=== PATIENT | male | born 1955 | race Caucasian/White ===

== ENCOUNTER 2017-05-26 06:53 | Emergency (ER) | payer OTHER ==
[2017-05-26] MEDS ORDERED: HYDROmorphone 0.5 MG/0.5 ML SYRINGE IVP STA (07:26)
[2017-05-26] MEDS ORDERED: METOCLOPRAMIDE 5 MG/ML 2 ML VIAL IVP STA (07:26)
[2017-05-26] MEDS ORDERED: SODIUM CHLORIDE 0.9% 1,000 ML IV STA (07:26)
[2017-05-26] MEDS ORDERED: hydrALAZINE HCL 20 MG/ML 1 ML VIAL IVP STA ×2 (07:28→09:31)
[2017-05-26 08:18] LABS: ALT 28 U/L (21-72); AST 13 U/L (17-59); Alkaline Phosphatase 105 U/L (38-126); Anion Gap 10 mmol/L; Blood Urea Nitrogen 15 mg/dL (9-20); Calcium 9.2 mg/dL (8.4-10.2); Carbon Dioxide 25 mmol/L (22-30); Chloride 99 mmol/L (98-107); Glucose 347 mg/dL (74-99); Non-African American GFR(MDRD) >60 (>60 ml/min/1.73 sqM); Potassium 4.3 mmol/L (3.5-5.1); Sodium 134 mmol/L (137-145); Total Bilirubin 0.5 mg/dL (0.2-1.3); Total Protein 6.5 g/dL (6.3-8.2)
[2017-05-26 08:21] LABS: Basophils # (A) 0.1 k/uL (0-0.2); Basophils % (A) 1 %; CH 31.6; CHCM 34.4; Eosinophils # (A) 0.2 k/uL (0-0.7); Eosinophils % (A) 3 %; HCT 49.4 % (39.0-53.0); HDW 2.75; HGB 16.7 gm/dL (13.0-17.5); Luc # (Auto) 0.08; Luc % (Auto) 1; Lymphocytes # (A) 1.8 k/uL (1.0-4.8); Lymphocytes % (A) 25 %; MCH 31.3 pg (25.0-35.0); MCHC 33.9 g/dL (31.0-37.0); MCV 92.4 fL (80.0-100.0); Mean Platelet Volume 7.7; Monocytes # (A) 0.5 k/uL (0-1.0); Monocytes % (A) 7 %; Neutrophils # (A) 4.6 k/uL (1.3-7.7); Neutrophils % (A) 63 %; RBC 5.35 m/uL (4.30-5.90); RDW 12.9 % (11.5-15.5); WBC 7.2 k/uL (3.8-10.6); WBC (Perox) 6.95
[2017-05-26 08:31] VITALS: RESP 18
--- NOTE | 2017-05-26 08:31 | CT ---
EXAMINATION TYPE: CT brain wo con DATE OF EXAM: 05/26/2017 COMPARISON: Previous study dated 05/28/2015. HISTORY: Lt sided head and facial pain CT DLP: 892.1 mGycm Automated exposure control for dose reduction was used. FINDINGS: There has been a previous left cerebellar infarct. There is evidence of an old lacunar infarct in the external capsule on the left. There are generalized changes of sulcal prominence and ventriculomegaly, compatible with atrophic jony nge. There is diffuse periventricular white matter lucency, compatible with small vessel ischemic jony nge. There is no acute focal lesion, mass effect or midline shift identified. I do not see evidence o f intracranial blood. There is chronic mucoperiosteal thickening involving the frontal sinuses and ethmoid sinuses. There i s underaeration of the right maxillary sinus. There is underaeration of the left mastoid air cells. IMPRESSION: 1. NO ACUTE INTRACRANIAL ABNORMALITY. 2. PREVIOUS INFARCT INVOLVING THE LEFT CEREBELLUM AND EXTERNAL CAPSULE ON THE LEFT. 3. ATROPHIC CHANGE. 4. CHRONIC WHITE MATTER ISCHEMIC CHANGE. 5. CHRONIC SINUS MUCOSAL DISEASE. 6. UNDERAERATION OF THE LEFT MASTOID AIR CELLS SUGGESTS CHRONIC LEFT-SIDED MASTOIDITIS.
--- NOTE | 2017-05-26 08:33 | XR ---
EXAMINATION TYPE: XR chest 2V DATE OF EXAM: 05/26/2017 HISTORY: Pain. REFERENCE: Previous study dated 11/02/2015. FINDINGS: The heart is enlarged. The lungs are clear. Pleural spaces are clear. Note is made of an az ygos lobe and fissure.. IMPRESSION: MILD CARDIOMEGALY.
[2017-05-26 09:20] LABS: Appearance,Urine Clear (Clear); Bilirubin,Urine Negative (Negative); Glucose,Urine (UA) 4+ (Negative); Ketones,Urine Trace (Negative); Leukocyte Esterase,Urine Negative (Negative); Nitrite,Urine Negative (Negative); Protein,Urine Negative (Negative); Specific Gravity,Urine 1.024 (1.001-1.035); UA Billing (MACRO vs. MICRO) CHEM; Urobilinogen,Urine <2.0 mg/dL (<2.0)
[2017-05-26] MEDS ORDERED: INSULIN REGULAR 100 UNIT/ML VIAL IV ONE (09:29)
[2017-05-26] MEDS ORDERED: INSULIN REGULAR 100 UNIT/ML VIAL SQ ONE (09:29)
--- NOTE | 2017-05-26 09:41 | ED ---
Headache HPI - General Chief Complaint: Headache Stated Complaint: Facial Pain Time Seen by Provider: 05/26/17 07:09 Mode of arrival: ambulatory Limitations: no limitations - History of Present Illness Initial Comments: 61 years old male, has had a colostomy days he has a history of CVA, his blood pressure is also hard he had he did take his blood pressure medication. He has a headache no chest pain no shortness of breath no symptoms of TIA or CVA today. He has a history of cancer and the been operated on his face on the left side but headache is no - Related Data Home Medications Medication Instructions Recorded Confirmed Lisinopril 40 mg PO DAILY 05/28/15 05/26/17 rOPINIRole HCL [Ropinirole HCl] 1 mg PO DAILY 05/31/15 05/26/17 ALPRAZolam [Xanax] 0.25 mg PO BID PRN 05/16/16 05/26/17 Carvedilol 25 mg PO BID 05/16/16 05/26/17 HYDROcodone/APAP 10-325MG [[place] 1 tab PO Q6H PRN 05/16/16 05/26/17 10-325] rOPINIRole HCL [Requip] 3 mg PO DAILY 05/16/16 05/26/17 Previous Rx's Medication Instructions Recorded hydrALAZINE HCL [Apresoline] 25 mg PO BID #60 tab 08/26/15 Clindamycin [Cleocin] 450 mg PO Q8H #30 capsule 05/18/16 INSULIN LISPRO (humaLOG) [humaLOG 6 unit SQ AC-TID #1 vial 05/18/16 (formulary)] Insulin Glargine [Lantus] 20 unit SQ HS #1 vial 05/18/16 Mupirocin 2% Oint [Bactroban 2% 1 applic TOPICAL TID applic 05/18/16 Oint] Tamsulosin [Flomax] 0.4 mg PO DAILY cap.er.24h 05/18/16 amLODIPine [Norvasc] 10 mg PO DAILY tab 05/18/16 metFORMIN HCL [Glucophage] 1,000 mg PO BID tab 05/18/16 Amoxicillin 500 mg PO Q8H #30 capsule 05/26/17 HYDROmorphone [Dilaudid] 1 mg PO Q4HR PRN #15 tab 05/26/17 Allergies Allergy/AdvReac Type Severity Reaction Status Date / Time tramadol Allergy Itching Verified 05/15/16 20:40 Review of Systems ROS Statement: Those systems with pertinent positive or pertinent negative responses have been documented in the HPI. ROS Other: All systems not noted in ROS Statement are negative. 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 History of Any Multi-Drug Resistant Organisms: None Reported Past Surgical History: Hernia Repair Additional Past Surgical History / Comment(s): mastoid repair on left ear Past Anesthesia/Blood Transfusion Reactions: No Reported Reaction Past Psychological History: Depression Smoking Status: Never smoker Past Alcohol Use History: None Reported Past Drug Use History: None Reported - Past Family History Father History Unknown: Yes Mother Family Medical History: Cancer, Myocardial Infarction ([place]) General Exam - General Exam Comments Initial Comments: General: The patient is awake and alert, in no distress, and does not appear acutely ill. Skin: Skin is warm and dry and no rashes or lesions are noted. Eye: Pupils are equal, round and reactive to light, extra-ocular movements are intact; there is normal conjunctiva bilaterally. Ears, nose, mouth and throat: Exam is consistent with sinusitis Neck: The neck is supple, there is no tenderness or JVD. Cardiovascular: There is a regular rate and rhythm. No murmur, rub or gallop is appreciated. Respiratory: To auscultation bilateral, no wheezing no rhonchi no distress respiratory trevino noticed Gastrointestinal: Soft, non-distended, non-tender abdomen without masses or organomegaly noted. There is no rebound or guarding present. Bowel sounds are unremarkable. Back: There is no tenderness to palpation in the midline. There is no obvious deformity. Musculoskeletal: Normal ROM, no tenderness, There is no pedal edema. There is no calf tenderness or swelling. No cords were appreciated. Neurological: CN II-XII intact, Cranial nerves III through XII are intact. There are no obvious motor or sensory deficits. Coordination appears grossly intact. Speech is normal. Psychiatric: Cooperative, appropriate mood & affect, normal judgment. He is quite anxious Limitations: no limitations Course Vital Signs 05/26/17 05/26/17 05/26/17 06:55 08:06 08:30 Temperature 96.9 F L Pulse Rate 97 75 Respiratory 20 18 Rate Blood Pressure 181/127 200/125 169/75 O2 Sat by Pulse 96 98 Oximetry 05/26/17 10:40 Temperature Pulse Rate 66 Respiratory 18 Rate Blood Pressure 145/80 O2 Sat by Pulse 96 Oximetry - Reevaluation(s) Reevaluation #1: 05/26/17 11:14 Blood sugar is 243 at 11 AM and he wants to go home she be gone home on amoxicillin 500 mg 3 times a day for 10 days and hydromorphone 1 mg every 6 when necessary #15 and he will follow up with his family doctor. He is also advised to keep his sugar #follow-up with his family doctor Medical Decision Making - Lab Data Result diagrams: 05/26/17 08:00 05/26/17 08:00 Lab Results 05/26/17 05/26/17 05/26/17 Range/Units 08:00 08:00 09:08 WBC 7.2 (3.8-10.6) k/uL RBC 5.35 (4.30-5.90) m/uL Hgb 16.7 (13.0-17.5) gm/dL Hct 49.4 (39.0-53.0) % MCV 92.4 (80.0-100.0) fL MCH 31.3 (25.0-35.0) pg MCHC 33.9 (31.0-37.0) g/dL RDW 12.9 (11.5-15.5) % Plt Count 188 (150-450) k/uL Neutrophils % 63 % Lymphocytes % 25 % Monocytes % 7 % Eosinophils % 3 % Basophils % 1 % Neutrophils # 4.6 (1.3-7.7) k/uL Lymphocytes # 1.8 (1.0-4.8) k/uL Monocytes # 0.5 (0-1.0) k/uL Eosinophils # 0.2 (0-0.7) k/uL Basophils # 0.1 (0-0.2) k/uL Sodium 134 L (137-145) mmol/L Potassium 4.3 (3.5-5.1) mmol/L Chloride 99 (98-107) mmol/L Carbon Dioxide 25 (22-30) mmol/L Anion Gap 10 mmol/L BUN 15 (9-20) mg/dL Creatinine 0.90 (0.66-1.25) mg/dL Est GFR (MDRD) Af Amer >60 (>60 ml/min/1.73 sqM) Est GFR (MDRD) Non-Af >60 (>60 ml/min/1.73 sqM) Glucose 347 H (74-99) mg/dL POC Glucose (mg/dL) (75-99) mg/dL POC Glu Bioinformatics Research Technician ID Calcium 9.2 (8.4-10.2) mg/dL Total Bilirubin 0.5 (0.2-1.3) mg/dL AST 13 L (17-59) U/L ALT 28 (21-72) U/L Alkaline Phosphatase 105 (38-126) U/L Total Protein 6.5 (6.3-8.2) g/dL Albumin 3.7 (3.5-5.0) g/dL Urine Color Yellow Urine Appearance Clear (Clear) Urine pH 6.0 (5.0-8.0) Ur Specific [place] 1.024 (1.001-1.035) Urine Protein Negative (Negative) Urine Glucose (UA) 4+ H (Negative) Urine Ketones Trace H (Negative) Urine Blood Negative (Negative) Urine Nitrite Negative (Negative) Urine Bilirubin Negative (Negative) Urine Urobilinogen <2.0 (<2.0) mg/dL Ur Leukocyte Esterase Negative (Negative) 05/26/17 Range/Units 10:30 WBC (3.8-10.6) k/uL RBC (4.30-5.90) m/uL Hgb (13.0-17.5) gm/dL Hct (39.0-53.0) % MCV (80.0-100.0) fL MCH (25.0-35.0) pg MCHC (31.0-37.0) g/dL RDW (11.5-15.5) % Plt Count (150-450) k/uL Neutrophils % % Lymphocytes % % Monocytes % % Eosinophils % % Basophils % % Neutrophils # (1.3-7.7) k/uL Lymphocytes # (1.0-4.8) k/uL Monocytes # (0-1.0) k/uL Eosinophils # (0-0.7) k/uL Basophils # (0-0.2) k/uL Sodium (137-145) mmol/L Potassium (3.5-5.1) mmol/L Chloride (98-107) mmol/L Carbon Dioxide (22-30) mmol/L Anion Gap mmol/L BUN (9-20) mg/dL Creatinine (0.66-1.25) mg/dL Est GFR (MDRD) Af Amer (>60 ml/min/1.73 sqM) Est GFR (MDRD) Non-Af (>60 ml/min/1.73 sqM) Glucose (74-99) mg/dL POC Glucose (mg/dL) 298 H (75-99) mg/dL POC Glu Bioinformatics Research Technician ID Anila Ashford Calcium (8.4-10.2) mg/dL Total Bilirubin (0.2-1.3) mg/dL AST (17-59) U/L ALT (21-72) U/L Alkaline Phosphatase (38-126) U/L Total Protein (6.3-8.2) g/dL Albumin (3.5-5.0) g/dL Urine Color Urine Appearance (Clear) Urine pH (5.0-8.0) Ur Specific [place] (1.001-1.035) Urine Protein (Negative) Urine Glucose (UA) (Negative) Urine Ketones (Negative) Urine Blood (Negative) Urine Nitrite (Negative) Urine Bilirubin (Negative) Urine Urobilinogen (<2.0) mg/dL Ur Leukocyte Esterase (Negative) Critical Care Time Total Critical Care Time: 30 Critical Care Time: His blood pressure was quite high was 181/27, this could be because of his headache he was giving some hydromorphone a.m. same time noticed some hydralazinepurposes no better reassessed him at 05/27/1930 systolic blood pressure was 158 0.2 units of insulin his sugar sugar sorry is greater than 352 week he started ketoacidosis his CO2 is normal. Given some IV as well as subcu insulin to normalize his sugar head CT is normal though does confirm chronic mastoiditis and sinusitis. Given some antibiotics for possible is advised to keep an eye on his blood pressure follow with his family doctor in next few days given some antibiotics considering his ALLERGIES for his chronic sinusitis and chronic mastoiditis Disposition Clinical Impression: Headache, Hypertension, Sinusitis, Hyperglycemia Disposition: HOME SELF-CARE Condition: Good Instructions: Acute Headache (ED) Prescriptions: Amoxicillin 500 mg PO Q8H #30 capsule HYDROmorphone [Dilaudid] 1 mg PO Q4HR PRN #15 tab PRN Reason: Headache Referrals: Salomon Paz DO [Primary Care Provider] - 1-2 days
[2017-05-26 10:35] LABS: Glucose,Whole Blood 298 mg/dL (75-99)
[2017-05-26 10:41] VITALS: BP 145/80; PULSE 66
[2017-05-26 11:17] LABS: Glucose,Whole Blood 246 mg/dL (75-99)
[2017-05-26 11:24] VITALS: TEMP 97.8
== END 2017-05-26 11:22 | disposition home or self-care (01) ==
LOC: EC 06:53
DX: E11.65 Type 2 diabetes mellitus with hyperglycemia (principal); I10 Essential (primary) hypertension; J32.9 Chronic sinusitis, unspecified; Z86.73 Personal history of transient ischemic attack (TIA), and cerebral infarction without residual deficits; Z85.828 Personal history of other malignant neoplasm of skin; Z79.899 Other long term (current) drug therapy; Z88.6 Allergy status to analgesic agent
CPT/HCPCS: 99285 ×2; 96374 ×2; 96375 ×3; 96361 ×5; 36415; 80053; 85025; 81003; 71020; 70450; J0360; J2765; J1170

== ENCOUNTER → 2017-08-08 | Outpatient (CLI) | payer MEDICARE, OTHER ==
--- NOTE | 2017-08-08 13:07 | MR ---
EXAMINATION TYPE: MR lumbar spine wo con DATE OF EXAM: 08/08/2017 COMPARISON: NONE HISTORY: Low back pain TECHNIQUE: T1 and T2 axial and sagittal images of the lumbar spine are submitted. FINDINGS: There is no abnormal signal seen within the visualized spinal cord or paraspinal soft tissu es. Simple renal cyst noted At L1-2 there is no disc herniation or canal stenosis. No foraminal encroachment. At L2-3 there is hypertrophic change of the facets but no disc herniation or canal stenosis. No guerline inal encroachment. At L3-4 there is hypertrophic change of the facets. No disc herniation or canal stenosis. Neural fora joycelyn are patent mild circumferential disc bulging. At L4-5 there is moderate facet arthropathy. There is circumferential disc bulging and mild degenerat erich disc disease with mild bilateral foraminal encroachment. At L5-S1 there is degenerative disc disease with vacuum disc and facet arthropathy. No disc herniatio n or canal stenosis. There is mild bilateral foraminal encroachment on the left and moderate to sever e encroachment on the right. There is a unilateral pars defect on the right of L5. IMPRESSION: 1. L5-S1 there is moderate to severe right-sided and mild left-sided foraminal encroachment due to hy pertrophic facet arthropathy and degenerative disc disease. Unilateral right spondylolysis L5. 2. Circumferential disc bulging L4-L5 with mild degenerative disc disease and mild bilateral foramina l encroachment.
== END | disposition home or self-care (01) ==
LOC: RADMRIMAIN 12:15
PROVIDERS: ATTEND Psychiatry & Neurology Neurology
DX: M51.26 Other intervertebral disc displacement, lumbar region (principal); M43.06 Spondylolysis, lumbar region; M51.37 Other intervertebral disc degeneration, lumbosacral region; M46.97 Unspecified inflammatory spondylopathy, lumbosacral region
CPT/HCPCS: 72148

== ENCOUNTER 2017-09-26 18:13 | Emergency (ER) | payer MEDICARE, OTHER ==
[2017-09-26 18:47] VITALS: RESP 18; TEMP 97
[2017-09-26] MEDS ORDERED: HYDROcodone/APAP 5-325MG 1 EACH TAB PO STA ×2 (18:49→19:22)
--- NOTE | 2017-09-26 18:59 | ED ---
Lower Extremity Injury HPI - General Chief Complaint: Extremity Injury, Lower Stated Complaint: LEFT ANKLE INJURY Time Seen by Provider: 09/26/17 18:31 Source: patient, family, RN notes reviewed Mode of arrival: wheelchair Limitations: physical limitation - History of Present Illness Initial Comments: This is a 62-year-old male who presents to the emergency department with chief complaint of left ankle injury. Patient states that approximately 4 hours ago he was standing and his left ankle gave out. He states that he is able to bear weight and ambulate but with some difficulty. He states that he was not going to come to the emergency department by his pain is unbearable. He states that it is currently 10/10 and throbbing in nature. He states that he does take [place] for pain but did not take any prior to arrival. He did not take any other medications. Patient denies foot pain or knee pain. He denies any other injury or trauma. Denies fever, chills, chest pain, shortness of breath, abdominal pain, nausea or vomiting, numbness or tingling, headache or vision changes. - Related Data Home Medications Medication Instructions Recorded Confirmed Lisinopril 40 mg PO DAILY 05/28/15 06/06/17 rOPINIRole HCL [Ropinirole HCl] 1 mg PO DAILY 05/31/15 06/06/17 ALPRAZolam [Xanax] 0.25 mg PO BID PRN 05/16/16 06/06/17 Carvedilol 25 mg PO BID 05/16/16 06/06/17 HYDROcodone/APAP 10-325MG [[place] 1 tab PO Q6H PRN 05/16/16 06/06/17 10-325] rOPINIRole HCL [Requip] 3 mg PO DAILY 05/16/16 06/06/17 INSULIN LISPRO (humaLOG) [humaLOG] 7 unit SQ AC-TID 06/06/17 06/06/17 Insulin Glargine [Lantus] 60 unit SQ HS 06/06/17 06/06/17 Previous Rx's Medication Instructions Recorded hydrALAZINE HCL [Apresoline] 25 mg PO BID #60 tab 08/26/15 Clindamycin [Cleocin] 450 mg PO Q8H #30 capsule 05/18/16 Mupirocin 2% Oint [Bactroban 2% 1 applic TOPICAL TID applic 05/18/16 Oint] Tamsulosin [Flomax] 0.4 mg PO DAILY cap.er.24h 05/18/16 amLODIPine [Norvasc] 10 mg PO DAILY tab 05/18/16 metFORMIN HCL [Glucophage] 1,000 mg PO BID tab 05/18/16 HYDROmorphone [Dilaudid] 1 mg PO Q4HR PRN #15 tab 05/26/17 Ibuprofen 600 mg PO Q6HR #20 tablet 09/26/17 Allergies Allergy/AdvReac Type Severity Reaction Status Date / Time tramadol Allergy Itching Verified 09/26/17 18:47 Review of Systems ROS Statement: Those systems with pertinent positive or pertinent negative responses have been documented in the HPI. ROS Other: All systems not noted in ROS Statement are negative. 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 History of Any Multi-Drug Resistant Organisms: None Reported Past Surgical History: Hernia Repair Additional Past Surgical History / Comment(s): mastoid repair on left ear Past Anesthesia/Blood Transfusion Reactions: No Reported Reaction Past Psychological History: Depression Smoking Status: Never smoker Past Alcohol Use History: None Reported Past Drug Use History: None Reported - Past Family History Father History Unknown: Yes Mother Family Medical History: Cancer, Myocardial Infarction ([place]) General Exam - General Exam Comments Initial Comments: General: Awake and alert, well-developed; in no apparent distress. HEENT: Head atraumatic, normocephalic. Pupils are equal, round and reactive to light. Extraocular movements intact. Oropharynx moist without erythema or exudate. Neck: Supple. Normal ROM. Cardiovascular: Regular rate and rhythm. No murmurs, rubs or gallops. Chest symmetrical. Respiratory: Lungs clear to auscultation bilaterally. No wheezes, rales or rhonchi. Normal respiratory effort with no use of accessory muscles. Musculoskeletal: Normal range of motion of the left ankle. Pain is elicited with inversion of the left foot. There is localized soft tissue swelling and ecchymosis at lateral malleolus. No bony point tenderness. Sensation is intact. Pedal pulses are 2+ equal and palpable bilaterally. Skin: [place], warm and dry without rashes or lesions. Psychiatric: Normal mood and affect. No overt signs of depression or anxiety noted. Limitations: physical limitation Course Vital Signs 09/26/17 09/26/17 09/26/17 18:44 19:21 20:18 Temperature 97 F L Pulse Rate 85 90 87 Respiratory 18 18 18 Rate Blood Pressure 183/128 221/137 212/121 O2 Sat by Pulse 96 98 98 Oximetry 09/26/17 21:39 Temperature Pulse Rate 73 Respiratory 18 Rate Blood Pressure 168/106 O2 Sat by Pulse 98 Oximetry Procedures - Orthopedic Splinting/Casting Injury #1 Side: left Lower Extremity Injury Location: ankle Lower Extremity Immobilizer: AirCast, Raoul wrap Additional Comments: Tolerated well. Neurovascularly intact. Medical Decision Making - Medical Decision Making This is a 62-year-old male who presents to the emergency department with chief complaint of left ankle injury. X-ray of left ankle revealed no acute fractures or dislocations. Patient likely suffering from a sprain. While in the emergency department, patient's initial blood pressure was 183/128. Patient was given pain medication. On recheck, blood pressure is 221/137. Patient given Coreg and Norvasc, his usual home medications and an additional [place]. An Raoul bandage and Aircast were placed and patient tolerated well without complication. He is neurovascularly intact and in no acute distress. On recheck after given medication, patient has a BP of 212/121. Basic labs were drawn to check kidney function. Patient had a glucose of 457. He states that he has missed 2 doses of his NovoLog today. States he is asymptomatic. Given 7 units subq while in the emergency department. Patient's blood pressure is now stabilized and he will be discharged home. He is in no acute distress. He requests a shoe to go over his Aircast. Recommended rest, ice and elevation while at home. He'll be given a prescription for ibuprofen. - Lab Data Result diagrams: 09/26/17 20:55 09/26/17 20:55 Lab Results 09/26/17 09/26/17 Range/Units 20:55 20:55 WBC 10.1 (3.8-10.6) k/uL RBC 6.08 H (4.30-5.90) m/uL Hgb 18.3 H (13.0-17.5) gm/dL Hct 56.7 H (39.0-53.0) % MCV 93.2 (80.0-100.0) fL MCH 30.1 (25.0-35.0) pg MCHC 32.2 (31.0-37.0) g/dL RDW 12.5 (11.5-15.5) % Plt Count 192 (150-450) k/uL Neutrophils % 78 % Lymphocytes % 13 % Monocytes % 5 % Eosinophils % 2 % Basophils % 1 % Neutrophils # 7.9 H (1.3-7.7) k/uL Lymphocytes # 1.3 (1.0-4.8) k/uL Monocytes # 0.5 (0-1.0) k/uL Eosinophils # 0.2 (0-0.7) k/uL Basophils # 0.1 (0-0.2) k/uL Sodium 136 L (137-145) mmol/L Potassium 4.6 (3.5-5.1) mmol/L Chloride 98 (98-107) mmol/L Carbon Dioxide 23 (22-30) mmol/L Anion Gap 15 mmol/L BUN 21 H (9-20) mg/dL Creatinine 1.11 (0.66-1.25) mg/dL Est GFR (MDRD) Af Amer >60 (>60 ml/min/1.73 sqM) Est GFR (MDRD) Non-Af >60 (>60 ml/min/1.73 sqM) Glucose 457 H* (74-99) mg/dL Calcium 9.6 (8.4-10.2) mg/dL Total Bilirubin 0.6 (0.2-1.3) mg/dL AST 18 (17-59) U/L ALT 18 L (21-72) U/L Alkaline Phosphatase 112 (38-126) U/L Total Protein 7.0 (6.3-8.2) g/dL Albumin 4.0 (3.5-5.0) g/dL - Radiology Data Radiology results: report reviewed Left ankle x-ray Impression: There is no acute fracture or dislocation of the left ankle. Mild to moderate lateral soft tissue swelling noted. Disposition Clinical Impression: Ankle sprain and strain Disposition: HOME SELF-CARE Condition: Good Instructions: Ankle Sprain (ED) Additional Instructions: Please take medications as prescribed. Please rest, ice and elevate. Please follow up with primary care provider within 1-2 days. Return to emergency department if symptoms should worsen or any concerns arise. Prescriptions: Ibuprofen 600 mg PO Q6HR #20 tablet Referrals: Salomon Paz DO [Primary Care Provider] - 1-2 days Time of Disposition: 21:50
--- NOTE | 2017-09-26 19:13 | XR ---
EXAMINATION TYPE: XR ankle complete LT DATE OF EXAM: 09/26/2017 CLINICAL HISTORY: Left ankle pain and swelling after fall injury today TECHNIQUE: Frontal, lateral and oblique images of the left ankle are obtained. COMPARISON: Left ankle x-ray October 04, 2014 FINDINGS: There is new mild to moderate soft tissue swelling over lateral malleolus. Demineralization is present. There is no acute fracture/dislocation evident in the left ankle. The ankle mortise roseline ears within normal limits. Vascular calcification anteriorly is noted. There are small superior and m oderate size inferior calcaneal spurs noted. IMPRESSION: There is no acute fracture or dislocation in the left ankle. [id number] lateral so ft tissue swelling noted.
[2017-09-26] MEDS ORDERED: CARVEDILOL 12.5 MG TAB PO STA (19:22)
[2017-09-26] MEDS ORDERED: amLODIPine 10 MG TAB PO STA (19:22)
[2017-09-26 20:59] LABS: Basophils # (A) 0.1 k/uL (0-0.2); Basophils % (A) 1 %; Eosinophils # (A) 0.2 k/uL (0-0.7); Eosinophils % (A) 2 %; HGB 18.3 gm/dL (13.0-17.5); Lymphocytes # (A) 1.3 k/uL (1.0-4.8); Lymphocytes % (A) 13 %; MCH 30.1 pg (25.0-35.0); MCHC 32.2 g/dL (31.0-37.0); MCV 93.2 fL (80.0-100.0); Mean Platelet Volume 7.9; Monocytes # (A) 0.5 k/uL (0-1.0); Monocytes % (A) 5 %; Neutrophils # (A) 7.9 k/uL (1.3-7.7); Neutrophils % (A) 78 %; Platelet Count 192 k/uL (150-450); RBC 6.08 m/uL (4.30-5.90); RDW 12.5 % (11.5-15.5); WBC 10.1 k/uL (3.8-10.6)
[2017-09-26 21:02] LABS: HCT 56.7 % (39.0-53.0)
[2017-09-26 21:12] LABS: ALT 18 U/L (21-72); AST 18 U/L (17-59); Alkaline Phosphatase 112 U/L (38-126); Anion Gap 15 mmol/L; Blood Urea Nitrogen 21 mg/dL (9-20); Calcium 9.6 mg/dL (8.4-10.2); Carbon Dioxide 23 mmol/L (22-30); Chloride 98 mmol/L (98-107); Potassium 4.6 mmol/L (3.5-5.1); Sodium 136 mmol/L (137-145); Total Bilirubin 0.6 mg/dL (0.2-1.3)
[2017-09-26 21:16] LABS: Glucose 457 mg/dL (74-99)
[2017-09-26] MEDS ORDERED: SODIUM CHLORIDE 0.9% 1,000 ML IV STA (21:27)
[2017-09-26] MEDS ORDERED: INSULIN ASPART 100 UNIT/ML 1 ML 10 ML VIAL SQ ONE (21:28)
[2017-09-26 21:41] VITALS: BP 168/106; PULSE 73
[2017-09-26] MEDS ORDERED: KETOROLAC 30 MG/ML 1 ML VIAL IVP STA (21:41)
== END 2017-09-26 22:32 | disposition home or self-care (01) ==
LOC: EC 18:13
DX: S96.912A Strain of unspecified muscle and tendon at ankle and foot level, left foot, initial encounter (principal); S93.402A Sprain of unspecified ligament of left ankle, initial encounter; E11.9 Type 2 diabetes mellitus without complications; I10 Essential (primary) hypertension; Z85.9 Personal history of malignant neoplasm, unspecified; Z86.73 Personal history of transient ischemic attack (TIA), and cerebral infarction without residual deficits; Z79.4 Long term (current) use of insulin; Z79.899 Other long term (current) drug therapy; Z88.6 Allergy status to analgesic agent; X50.1XXA Overexertion from prolonged static or awkward postures, initial encounter; Y92.89 Other specified places as the place of occurrence of the external cause
CPT/HCPCS: 36415; 80053; 85025; 73610; 99284; 29515; 96374; 96361; L4350; J1885

== ENCOUNTER 2017-11-18 17:07 | Emergency (ER) | payer MEDICARE, OTHER ==
[2017-11-18 17:43] VITALS: RESP 18
--- NOTE | 2017-11-18 18:26 | ED ---
General Adult HPI - General Chief complaint: Eye Problems Stated complaint: Eye infection Time Seen by Provider: 11/18/17 18:15 Source: patient Mode of arrival: ambulatory Limitations: no limitations - History of Present Illness Initial comments: Gray Burger is a 62-year-old male with a past medical history significant for a CVA approximately 4 years ago, patient reports that at the time of the stroke he had an NG tube placed in the left naris, he subsequently developed nonhealing wound which spread throughout his face. Patient reports that he has been evaluated multiple times over the past 4 years for this nonhealing wound. He reports that for some time the wound on his face healed, however he had persistent non-healing wound in his left nares. 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 Patient reports that approximately 3 weeks ago he noticed an opening wound on his scalp as well as on his left eyebrow, he was evaluated by a general magistrate at which time biopsies were taken of the wound on his head as well as his left eyebrow. He was not given any antibiotics or treatment at that time. He reports that he was notified that the biopsies were negative for any cancerous cells although they could not identify the cause of his recurrent opening wounds. Patient does admit that he frequently picks at his wounds. Patient reports that since getting the biopsy he has noticed some progressively worsening swelling of his left eyebrow which has caused swelling of his eyelid which is now affecting his vision. Patient does have scarring of the skin from his left eyebrow onto his left nose which causes his eyelid to not be able to open completely at baseline however he feels worse recently. Patient denies any additional new complaints. Patient denies any fevers, chills. He reports that if he holds his eyelid open he has normal vision. He has no pain with extraocular movements. - Related Data Home Medications Medication Instructions Recorded Confirmed Lisinopril 40 mg PO DAILY 05/28/15 11/18/17 rOPINIRole HCL [Ropinirole HCl] 1 mg PO DAILY 05/31/15 11/18/17 Carvedilol 25 mg PO BID 05/16/16 11/18/17 HYDROcodone/APAP 10-325MG [[place] 1 tab PO Q6H PRN 05/16/16 11/18/17 10-325] rOPINIRole HCL [Requip] 3 mg PO DAILY 05/16/16 11/18/17 INSULIN LISPRO (humaLOG) [humaLOG] 7 unit SQ AC-TID 06/06/17 11/18/17 Insulin Glargine [Lantus] 70 unit SQ HS 06/06/17 11/18/17 Gabapentin [Neurontin] 300 mg PO TID 11/18/17 11/18/17 Previous Rx's Medication Instructions Recorded hydrALAZINE HCL [Apresoline] 25 mg PO BID #60 tab 08/26/15 amLODIPine [Norvasc] 10 mg PO DAILY tab 05/18/16 Cephalexin [Keflex] 500 mg PO Q8HR 7 Days #21 cap 11/18/17 Allergies Allergy/AdvReac Type Severity Reaction Status Date / Time tramadol Allergy Itching Verified 11/18/17 18:33 Review of Systems ROS Statement: Those systems with pertinent positive or pertinent negative responses have been documented in the HPI. ROS Other: All systems not noted in ROS Statement are negative. Constitutional: Denies: fever, chills Eyes: Reports: as per HPI, other (swelling of left eyelid). Denies: eye pain, eye discharge ENT: Denies: ear pain, throat pain Respiratory: Denies: cough Cardiovascular: Denies: chest pain, palpitations Endocrine: Denies: fatigue Gastrointestinal: Denies: abdominal pain, nausea, vomiting Genitourinary: Denies: urgency Musculoskeletal: Denies: back pain Skin: Reports: lesions Neurological: Reports: headache (chronic, unchanged from previous stroke) Hematological/Lymphatic: Denies: easy bleeding 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 History of Any Multi-Drug Resistant Organisms: None Reported Past Surgical History: Hernia Repair Additional Past Surgical History / Comment(s): mastoid repair on left ear Past Anesthesia/Blood Transfusion Reactions: No Reported Reaction Past Psychological History: Depression Smoking Status: Never smoker Past Alcohol Use History: None Reported Past Drug Use History: None Reported - Past Family History Father History Unknown: Yes Mother Family Medical History: Cancer, Myocardial Infarction ([place]) General Exam Limitations: no limitations General appearance: alert Expanded 1 - Open wound left eyebrow, minimal surrounding erythema. Surgical removal of left nares, chronic wound and scarring on face. Open wound on midline scalp 2 - Open wound on scalp Eye exam: Present: periorbital swelling (swelling of left eyelid, no tenderness to palpation ) ENT exam: Present: other (surgical changes of left nares, chronic wound of left nares) Respiratory exam: Absent: respiratory distress Cardiovascular Exam: Present: regular rate, normal rhythm GI/Abdominal exam: Present: soft. 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 Has been evaluated by dermatology , reports a negative biopsy and has not been given any antibiotics for this recurrence of the wound. Physical exam with chronic wounds on the scalp as well as left eyebrow, there is mild edema of the left eyelid as well as chronic scarring of the medial side of the eyelid near the canthus which limits the patient's ability to fully open his eye. Labs and CT imaging were ordered Labs with no significant abnormalities aside from hyperglycemia CT with chronic changes but no acute evidence of cellulitis or abscess Results were discussed with the patient who expresses frustration that he has been dealing with this for 4 years with no resolution. Patient reports that he usually has improvement in his wounds when he is given antibiotics. I offered the patient Bactrim considering that this is a patient wound seeming to originate from his naris, however patient declines this because he states it has never helped him in the past. Will discharge home with by mouth Keflex. Patient has multiple follow-up appointments scheduled including the management dermatology and primary care. Patient will be referred to infectious disease and wound care for further follow-up. At this time I do not feel there is no emergent condition. Patient has no evidence of orbital cellulitis, he has full extraocular movements with no pain. He has no vision changes. Patient was able to show me photographs of previous episodes of this wound which appears similar to current episode. - Lab Data Result diagrams: 11/18/17 18:42 11/18/17 18:42 Lab Results 11/18/17 11/18/17 Range/Units 18:42 18:42 WBC 9.9 (3.8-10.6) k/uL RBC 5.28 (4.30-5.90) m/uL Hgb 16.0 (13.0-17.5) gm/dL Hct 46.2 (39.0-53.0) % MCV 87.5 D (80.0-100.0) fL MCH 30.3 (25.0-35.0) pg MCHC 34.7 (31.0-37.0) g/dL RDW 13.0 (11.5-15.5) % Plt Count 224 (150-450) k/uL Neutrophils % 69 % Lymphocytes % 19 % Monocytes % 5 % Eosinophils % 4 % Basophils % 1 % Neutrophils # 6.9 (1.3-7.7) k/uL Lymphocytes # 1.9 (1.0-4.8) k/uL Monocytes # 0.5 (0-1.0) k/uL Eosinophils # 0.4 (0-0.7) k/uL Basophils # 0.1 (0-0.2) k/uL Sodium 137 (137-145) mmol/L Potassium 4.4 (3.5-5.1) mmol/L Chloride 101 (98-107) mmol/L Carbon Dioxide 26 (22-30) mmol/L Anion Gap 10 mmol/L BUN 15 (9-20) mg/dL Creatinine 1.00 (0.66-1.25) mg/dL Est GFR (CKD-EPI)AfAm >90 (>60 ml/min/1.73 sqM) Est GFR (CKD-EPI)NonAf 80 (>60 ml/min/1.73 sqM) Glucose 232 H (74-99) mg/dL Calcium 9.1 (8.4-10.2) mg/dL Disposition Clinical Impression: Chronic wound of head Disposition: HOME SELF-CARE Condition: Good Instructions: Cellulitis (ED) Prescriptions: Cephalexin [Keflex] 500 mg PO Q8HR 7 Days #21 cap Referrals: Salomon Paz DO [Primary Care Provider] - 1-2 days Maxim Brady MD [STAFF PHYSICIAN] - 1-2 days Time of Disposition: 20:47
[2017-11-18] MEDS ORDERED: RX INFO: IV CONTRAST WAS GIVEN 1 EACH MISC MISCELLANE PRN (18:29)
[2017-11-18 18:51] LABS: Basophils # (A) 0.1 k/uL (0-0.2); Basophils % (A) 1 %; Eosinophils # (A) 0.4 k/uL (0-0.7); Eosinophils % (A) 4 %; HCT 46.2 % (39.0-53.0); Lymphocytes # (A) 1.9 k/uL (1.0-4.8); Lymphocytes % (A) 19 %; MCH 30.3 pg (25.0-35.0); MCHC 34.7 g/dL (31.0-37.0); Mean Platelet Volume 7.6; Monocytes # (A) 0.5 k/uL (0-1.0); Monocytes % (A) 5 %; Neutrophils # (A) 6.9 k/uL (1.3-7.7); Neutrophils % (A) 69 %; Platelet Count 224 k/uL (150-450); RBC 5.28 m/uL (4.30-5.90); WBC 9.9 k/uL (3.8-10.6)
[2017-11-18 18:55] LABS: MCV 87.5 fL (80.0-100.0)
[2017-11-18 19:00] LABS: Anion Gap 10 mmol/L; Blood Urea Nitrogen 15 mg/dL (9-20); Calcium 9.1 mg/dL (8.4-10.2); Carbon Dioxide 26 mmol/L (22-30); Chloride 101 mmol/L (98-107); Glucose 232 mg/dL (74-99); Potassium 4.4 mmol/L (3.5-5.1); Sodium 137 mmol/L (137-145)
--- NOTE | 2017-11-18 19:51 | CT ---
EXAMINATION TYPE: CT orbits w con DATE OF EXAM: 11/18/2017 COMPARISON: NONE HISTORY: Left eye pain and swelling. CT DLP: 373.5 mGycm Automated exposure control for dose reduction was used. CONTRAST: Performed with IV Contrast, patient injected with 100ml mL of Isovue 300. FINDINGS: There is no evidence of retro-orbital mass. There is soft tissue swelling medial to the left orbit. T here is preseptal soft tissue swelling anterior to the left lobe. The globes are symmetric. There is mild mucosal thickening in the ethmoid sinuses. The orbital margins are intact. There is mucosal thic kening in the frontal sinuses. There is mild mucosal thickening in the maxillary sinuses. There is so me deformity of the right maxilla with bone thickening on the zygoma and the lateral wall of the righ t maxillary sinus. I see no pathologic enhancement. IMPRESSION: MODERATE SINUSITIS INVOLVING MAINLY THE FRONTAL AND ETHMOID SINUSES. THICKENED RIGHT ZYGOMA THAT COUL D RELATE TO DYSPLASIA. PRESEPTAL SOFT TISSUE SWELLING AROUND THE LEFT ORBIT. NO ABSCESS SEEN. NO RETRO-ORBITAL MASS. 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 THE LEFT PERIORBITAL SOFT TISSUE DENSITY IS PRESENT TO A LE SSER EXTENT ON THE OLD CT SCAN OF 05/26/2017.
[2017-11-18] MEDS ORDERED: HYDROcodone/APAP 10-325MG 1 EACH TAB PO ONE (20:45)
[2017-11-18 20:56] VITALS: BP 118/87; PULSE 87; TEMP 97.4
== END 2017-11-18 20:55 | disposition home or self-care (01) ==
LOC: SUPCPDRO 17:07 → EC 17:07
DX: S01.102A Unspecified open wound of left eyelid and periocular area, initial encounter (principal); S01.00XA Unspecified open wound of scalp, initial encounter; E11.9 Type 2 diabetes mellitus without complications; I10 Essential (primary) hypertension; Z86.73 Personal history of transient ischemic attack (TIA), and cerebral infarction without residual deficits; Z85.9 Personal history of malignant neoplasm, unspecified; Z79.02 Long term (current) use of antithrombotics/antiplatelets; Z79.4 Long term (current) use of insulin; Z79.899 Other long term (current) drug therapy; Z88.6 Allergy status to analgesic agent; Z97.8 Presence of other specified devices
CPT/HCPCS: 36415; 80048; 85025; 87040; 70481; 99284; Q9967

== ENCOUNTER 2019-01-09 20:57 | Emergency (ER) | payer MEDICARE, OTHER ==
[2019-01-09 22:03] LABS: Basophils # (A) 0.1 k/uL (0-0.2); Basophils % (A) 1 %; Eosinophils # (A) 0.4 k/uL (0-0.7); Eosinophils % (A) 5 %; HCT 49.2 % (39.0-53.0); HGB 16.6 gm/dL (13.0-17.5); Lymphocytes # (A) 2.2 k/uL (1.0-4.8); Lymphocytes % (A) 26 %; MCHC 33.8 g/dL (31.0-37.0); MCV 85.8 fL (80.0-100.0); Mean Platelet Volume 7.7; Monocytes # (A) 0.4 k/uL (0-1.0); Monocytes % (A) 5 %; Neutrophils # (A) 5.2 k/uL (1.3-7.7); Neutrophils % (A) 62 %; Platelet Count 236 k/uL (150-450); RBC 5.73 m/uL (4.30-5.90); RDW 13.3 % (11.5-15.5); WBC 8.5 k/uL (3.8-10.6)
[2019-01-09 22:08] LABS: ALT 16 U/L (21-72); AST 26 U/L (17-59); African American GFR (CKD) >90 (>60 ml/min/1.73 sqM); Albumin 3.9 g/dL (3.5-5.0); Alkaline Phosphatase 147 U/L (38-126); Anion Gap 6 mmol/L; Blood Urea Nitrogen 16 mg/dL (9-20); Calcium 9.2 mg/dL (8.4-10.2); Carbon Dioxide 27 mmol/L (22-30); Chloride 100 mmol/L (98-107); Glucose 350 mg/dL (74-99); Sodium 133 mmol/L (137-145); Total Protein 6.8 g/dL (6.3-8.2)
[2019-01-09 22:10] LABS: Magnesium 1.9 mg/dL (1.6-2.3); Potassium 4.7 mmol/L (3.5-5.1)
[2019-01-09 22:15] LABS: Appearance,Urine Clear (Clear); Bilirubin,Urine Negative (Negative); Blood,Urine Negative (Negative); Color,Urine Yellow; Glucose,Urine (UA) 4+ (Negative); Ketones,Urine 1+ (Negative); Leukocyte Esterase,Urine Negative (Negative); Nitrite,Urine Negative (Negative); Protein,Urine Negative (Negative); Specific Gravity,Urine 1.027 (1.001-1.035); Urobilinogen,Urine <2.0 mg/dL (<2.0)
[2019-01-09] MEDS ORDERED: SODIUM CHLORIDE 0.9% 2,000 ML IV ONE (22:34)
[2019-01-09] MEDS ORDERED: INSULIN REGULAR 100 UNIT/ML VIAL IV STA (22:34)
[2019-01-09] MEDS ORDERED: HYDROcodone/APAP 5-325MG 1 EACH TAB PO STA (23:00)
[2019-01-09] MEDS ORDERED: ONDANSETRON 4 MG/2 ML VIAL IVP STA (23:32)
--- NOTE | 2019-01-10 00:17 | ED ---
Fall HPI - General Chief Complaint: Fall Stated Complaint: fall,hypertension Time Seen by Provider: 01/09/19 21:01 Source: EMS Mode of arrival: EMS - History of Present Illness Initial Comments: Patient is a 63-year-old man who presents to be evaluated after he had a ground-level fall. The patient states that he had been feeling a little dizzy with getting up. Patient was concerned because he has not had his hypoglycemics in quite some time and was feeling dizzy and concerned about blood sugars. Denies significant injury as result of the fall. No loss consciousness. No head trauma. MD Complaint: fall -: hour(s) Fall From: standing Place Fall Occurred: home Loss of Consciousness: none Prolonged Down Time?: no Symptoms Prior to Fall: dizziness Context: tripped/slipped Associated Symptoms: denies - Related Data Previous Rx's Medication Instructions Recorded Aspirin 162 mg PO DAILY #1 chewable 01/15/19 Atorvastatin [Lipitor] 40 mg PO DAILY tab 01/15/19 Cyclobenzaprine [Flexeril] 5 mg PO TID PRN tab 01/15/19 INSULIN ASPART (NovoLOG) [NovoLOG 7 unit SQ AC-TID vial 01/15/19 (formulary)] Insulin Detemir (Levemir) [Levemir] 25 unit SQ HS syr 01/15/19 Lidocaine 5% Patch [Lidoderm 5% 1 patch TOPICAL DAILY patch 01/15/19 Patch] Lisinopril [Zestril] 40 mg PO HS tab 01/15/19 NIFEdipine XL [Procardia XL] 60 mg PO DAILY tab.er.24 01/15/19 metFORMIN HCL [Glucophage] 500 mg PO BID #1 tab 01/15/19 Allergies Allergy/AdvReac Type Severity Reaction Status Date / Time tramadol Allergy Itching Verified 01/10/19 08:01 Review of Systems ROS Statement: Those systems with pertinent positive or pertinent negative responses have been documented in the HPI. ROS Other: All systems not noted in ROS Statement are negative. Constitutional: Denies: fever, chills, weakness Eyes: Denies: vision change Respiratory: Denies: cough, dyspnea Cardiovascular: Denies: chest pain, palpitations, syncope Gastrointestinal: Denies: abdominal pain, vomiting, diarrhea Genitourinary: Denies: dysuria, hematuria Musculoskeletal: Denies: back pain Skin: Denies: rash Neurological: Denies: headache, weakness, numbness 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 History of Any Multi-Drug Resistant Organisms: None Reported Past Surgical History: Hernia Repair Additional Past Surgical History / Comment(s): mastoid repair on left ear Past Anesthesia/Blood Transfusion Reactions: No Reported Reaction Past Psychological History: Depression Smoking Status: Never smoker Past Alcohol Use History: None Reported Past Drug Use History: None Reported - Past Family History Father History Unknown: Yes Mother Family Medical History: Cancer, Myocardial Infarction ([place]) General Exam Limitations: no limitations General appearance: alert, in no apparent distress Head exam: Present: atraumatic, normocephalic Eye exam: Present: normal appearance, PERRL, EOMI. Absent: scleral icterus, conjunctival injection, nystagmus ENT exam: Present: mucous membranes dry Neck exam: Present: normal inspection, full ROM. Absent: tenderness Respiratory exam: Present: normal lung sounds bilaterally. Absent: respiratory distress, wheezes, rales, rhonchi, stridor Cardiovascular Exam: Present: regular rate, normal rhythm, normal heart sounds. Absent: systolic murmur, diastolic murmur, rubs, gallop GI/Abdominal exam: Present: soft. Absent: distended, tenderness, guarding, rebound, rigid, mass Extremities exam: Present: normal inspection, normal capillary refill. Absent: pedal edema, calf tenderness Back exam: Present: normal inspection. Absent: CVA tenderness (R), CVA tenderness (L), vertebral tenderness Neurological exam: Present: alert, oriented X3. Absent: motor sensory deficit Skin exam: Present: warm, dry, intact, normal color. Absent: rash Course Vital Signs 01/09/19 01/10/19 21:05 00:50 Temperature 98.0 F 97.8 F Pulse Rate 84 82 Respiratory 18 19 Rate Blood Pressure 199/126 170/92 O2 Sat by Pulse 95 97 Oximetry Medical Decision Making - Lab Data Result diagrams: 01/09/19 21:04 01/09/19 21:04 Lab Results 01/09/19 01/09/19 01/09/19 Range/Units 21:04 21:04 21:04 WBC 8.5 (3.8-10.6) k/uL RBC 5.73 (4.30-5.90) m/uL Hgb 16.6 (13.0-17.5) gm/dL Hct 49.2 (39.0-53.0) % MCV 85.8 (80.0-100.0) fL MCH 29.0 (25.0-35.0) pg MCHC 33.8 (31.0-37.0) g/dL RDW 13.3 (11.5-15.5) % Plt Count 236 (150-450) k/uL Neutrophils % 62 % Lymphocytes % 26 % Monocytes % 5 % Eosinophils % 5 % Basophils % 1 % Neutrophils # 5.2 (1.3-7.7) k/uL Lymphocytes # 2.2 (1.0-4.8) k/uL Monocytes # 0.4 (0-1.0) k/uL Eosinophils # 0.4 (0-0.7) k/uL Basophils # 0.1 (0-0.2) k/uL Sodium 133 L (137-145) mmol/L Potassium 4.7 (3.5-5.1) mmol/L Chloride 100 (98-107) mmol/L Carbon Dioxide 27 (22-30) mmol/L Anion Gap 6 mmol/L BUN 16 (9-20) mg/dL Creatinine 0.79 (0.66-1.25) mg/dL Est GFR (CKD-EPI)AfAm >90 (>60 ml/min/1.73 sqM) Est GFR (CKD-EPI)NonAf >90 (>60 ml/min/1.73 sqM) Glucose 350 H (74-99) mg/dL POC Glucose (mg/dL) (75-99) mg/dL POC Glu [employer] ID Plasma Lactic Acid [place] (0.7-2.0) mmol/L Calcium 9.2 (8.4-10.2) mg/dL Magnesium 1.9 (1.6-2.3) mg/dL Total Bilirubin 1.0 (0.2-1.3) mg/dL AST 26 (17-59) U/L ALT 16 L (21-72) U/L Alkaline Phosphatase 147 H (38-126) U/L Troponin I (0.000-0.034) ng/mL Total Protein 6.8 (6.3-8.2) g/dL Albumin 3.9 (3.5-5.0) g/dL Urine Color Urine Appearance (Clear) Urine pH (5.0-8.0) Ur Specific [place] (1.001-1.035) Urine Protein (Negative) Urine Glucose (UA) (Negative) Urine Ketones (Negative) Urine Blood (Negative) Urine Nitrite (Negative) Urine Bilirubin (Negative) Urine Urobilinogen (<2.0) mg/dL Ur Leukocyte Esterase (Negative) Acetone, Qual Negative (Negative) 01/09/19 01/09/19 01/09/19 Range/Units 21:04 21:04 21:50 WBC (3.8-10.6) k/uL RBC (4.30-5.90) m/uL Hgb (13.0-17.5) gm/dL Hct (39.0-53.0) % MCV (80.0-100.0) fL MCH (25.0-35.0) pg MCHC (31.0-37.0) g/dL RDW (11.5-15.5) % Plt Count (150-450) k/uL Neutrophils % % Lymphocytes % % Monocytes % % Eosinophils % % Basophils % % Neutrophils # (1.3-7.7) k/uL Lymphocytes # (1.0-4.8) k/uL Monocytes # (0-1.0) k/uL Eosinophils # (0-0.7) k/uL Basophils # (0-0.2) k/uL Sodium (137-145) mmol/L Potassium (3.5-5.1) mmol/L Chloride (98-107) mmol/L Carbon Dioxide (22-30) mmol/L Anion Gap mmol/L BUN (9-20) mg/dL Creatinine (0.66-1.25) mg/dL Est GFR (CKD-EPI)AfAm (>60 ml/min/1.73 sqM) Est GFR (CKD-EPI)NonAf (>60 ml/min/1.73 sqM) Glucose (74-99) mg/dL POC Glucose (mg/dL) (75-99) mg/dL POC Glu [employer] ID Plasma Lactic Acid [place] 1.8 (0.7-2.0) mmol/L Calcium (8.4-10.2) mg/dL Magnesium (1.6-2.3) mg/dL Total Bilirubin (0.2-1.3) mg/dL AST (17-59) U/L ALT (21-72) U/L Alkaline Phosphatase (38-126) U/L Troponin I <0.012 (0.000-0.034) ng/mL Total Protein (6.3-8.2) g/dL Albumin (3.5-5.0) g/dL Urine Color Yellow Urine Appearance Clear (Clear) Urine pH 7.0 (5.0-8.0) Ur Specific [place] 1.027 (1.001-1.035) Urine Protein Negative (Negative) Urine Glucose (UA) 4+ H (Negative) Urine Ketones 1+ H (Negative) Urine Blood Negative (Negative) Urine Nitrite Negative (Negative) Urine Bilirubin Negative (Negative) Urine Urobilinogen <2.0 (<2.0) mg/dL Ur Leukocyte Esterase Negative (Negative) Acetone, Qual (Negative) 01/10/19 Range/Units 00:12 WBC (3.8-10.6) k/uL RBC (4.30-5.90) m/uL Hgb (13.0-17.5) gm/dL Hct (39.0-53.0) % MCV (80.0-100.0) fL MCH (25.0-35.0) pg MCHC (31.0-37.0) g/dL RDW (11.5-15.5) % Plt Count (150-450) k/uL Neutrophils % % Lymphocytes % % Monocytes % % Eosinophils % % Basophils % % Neutrophils # (1.3-7.7) k/uL Lymphocytes # (1.0-4.8) k/uL Monocytes # (0-1.0) k/uL Eosinophils # (0-0.7) k/uL Basophils # (0-0.2) k/uL Sodium (137-145) mmol/L Potassium (3.5-5.1) mmol/L Chloride (98-107) mmol/L Carbon Dioxide (22-30) mmol/L Anion Gap mmol/L BUN (9-20) mg/dL Creatinine (0.66-1.25) mg/dL Est GFR (CKD-EPI)AfAm (>60 ml/min/1.73 sqM) Est GFR (CKD-EPI)NonAf (>60 ml/min/1.73 sqM) Glucose (74-99) mg/dL POC Glucose (mg/dL) 202 H (75-99) mg/dL POC Glu [employer] Olena Zuluaga Plasma Lactic Acid Ashok (0.7-2.0) mmol/L Calcium (8.4-10.2) mg/dL Magnesium (1.6-2.3) mg/dL Total Bilirubin (0.2-1.3) mg/dL AST (17-59) U/L ALT (21-72) U/L Alkaline Phosphatase (38-126) U/L Troponin I (0.000-0.034) ng/mL Total Protein (6.3-8.2) g/dL Albumin (3.5-5.0) g/dL Urine Color Urine Appearance (Clear) Urine pH (5.0-8.0) Ur Specific [place] (1.001-1.035) Urine Protein (Negative) Urine Glucose (UA) (Negative) Urine Ketones (Negative) Urine Blood (Negative) Urine Nitrite (Negative) Urine Bilirubin (Negative) Urine Urobilinogen (<2.0) mg/dL Ur Leukocyte Esterase (Negative) Acetone, Qual (Negative) Disposition Clinical Impression: Diabetes mellitus type 2, uncontrolled, Fall Disposition: HOME SELF-CARE Condition: Fair Instructions (If sedation given, give patient instructions): Fall Prevention for Older Adults (ED), Diabetic Hyperglycemia (ED) Is patient prescribed a controlled substance at d/c from ED?: No Referrals: None,Stated [Primary Care Provider] - 1-2 days
[2019-01-10 00:20] LABS: Glucose,Whole Blood 202 mg/dL (75-99)
[2019-01-10] MEDS ORDERED: ACET/COD 300 MG/30 MG STARTER PACK 6 TAB BTL PO STA (00:42)
[2019-01-10 01:10] VITALS: BP 170/92; PULSE 82; RESP 19; TEMP 97.8
--- NOTE | 2019-01-27 06:50 | CDI ---
Dear Ayush Curiel MD: Please do addendum clarification whether DM uncontrolled is hyperglycemia or hypoglycemia as in Impression given Diabetes Mellitus type 2, uncontrolled. Thank you, Patricia Templeton, Real Estate Assistant. If you have any questions, please contact [employer] [employer] at [phone]. MARYD
== END 2019-01-10 00:52 | disposition home or self-care (01) ==
LOC: EC 20:57
DX: E11.9 Type 2 diabetes mellitus without complications (principal); R42 Dizziness and giddiness; Z88.6 Allergy status to analgesic agent; Z85.9 Personal history of malignant neoplasm, unspecified; W01.0XXA Fall on same level from slipping, tripping and stumbling without subsequent striking against object, initial encounter; Y92.009 Unspecified place in unspecified non-institutional (private) residence as the place of occurrence of the external cause
CPT/HCPCS: 36415; 80053; 81003; 82009; 83605; 83735; 84484; 85025; 96361; 96374; 99284

== ENCOUNTER 2019-01-10 07:58 | Inpatient (IN) | payer MEDICARE, OTHER ==
--- NOTE | 2019-01-10 08:19 | ED ---
General Adult HPI - General Chief complaint: Weakness Stated complaint: POSS CVA Time Seen by Provider: 01/10/19 08:07 Source: patient, RN notes reviewed Mode of arrival: EMS Limitations: no limitations - History of Present Illness Initial comments: Patient is a pleasant 63-year-old male presenting to the emergency department with weakness. Onset of symptoms was around 1 week ago. Patient had a fall yesterday and again to last night. No significant injury. Patient does have history of previous stroke and chronic left-sided weakness. Patient feels his weakness is worse than normal. No headache. No confusion. No speech problems. Symptoms have been persistent. Patient denies any injury. Patient states he is concerned regarding increased weakness. - Related Data Home Medications Medication Instructions Recorded Confirmed No Known Home Medications 01/10/19 01/10/19 Allergies Allergy/AdvReac Type Severity Reaction Status Date / Time tramadol Allergy Itching Verified 01/10/19 08:01 Review of Systems ROS Statement: Those systems with pertinent positive or pertinent negative responses have been documented in the HPI. ROS Other: All systems not noted in ROS Statement are negative. 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 History of Any Multi-Drug Resistant Organisms: None Reported Past Surgical History: Hernia Repair Additional Past Surgical History / Comment(s): mastoid repair on left ear Past Anesthesia/Blood Transfusion Reactions: No Reported Reaction Past Psychological History: Depression Smoking Status: Never smoker Past Alcohol Use History: None Reported Past Drug Use History: None Reported - Past Family History Father History Unknown: Yes Mother Family Medical History: Cancer, Myocardial Infarction ([place]) General Exam Limitations: no limitations General appearance: alert, in no apparent distress Head exam: Present: other (Several areas of eschar which patient insists are chronic) Eye exam: Present: normal appearance, PERRL, EOMI ENT exam: Present: normal oropharynx, other (Previous left facial surgery) Neck exam: Present: normal inspection. Absent: tenderness Respiratory exam: Present: normal lung sounds bilaterally Cardiovascular Exam: Present: regular rate, normal rhythm GI/Abdominal exam: Present: soft. Absent: tenderness Extremities exam: Present: normal inspection, full ROM. Absent: tenderness Back exam: Absent: tenderness, vertebral tenderness Neurological exam: Present: alert, oriented X3, CN II-XII intact Expanded Neurological exam: Present: protecting the airway Patient oriented to: Present: person, place, time Speech: Present: fluid speech Cranial nerves: EOM's Intact: Normal Motor strength exam: RUE: 5, LUE: 4, RLE: 5, LLE: 3 Eye Response: (4) open spontaneously Motor Response: (6) obeys commands Verbal Response: (5) oriented Psychiatric exam: Present: normal affect, normal mood Skin exam: Present: other (Several areas of eschar formation on the face and scalp which patient states are chronic) Course Vital Signs 01/10/19 01/10/19 01/10/19 08:05 08:07 08:30 Temperature 99.2 F Pulse Rate 101 H 101 H 96 Respiratory 16 18 16 Rate Blood Pressure 204/135 204/135 O2 Sat by Pulse 93 L 95 Oximetry 01/10/19 01/10/19 09:00 09:30 Temperature Pulse Rate Respiratory 18 17 Rate Blood Pressure 184/133 179/125 O2 Sat by Pulse 99 Oximetry - Reevaluation(s) Reevaluation #1: 01/10/19 09:47 Patient has requested pain medication for his lower back discomfort that occurred during the fall. X-rays will also be ordered. EKG Findings - EKG Comments: EKG Findings:: Normal sinus rhythm 95. RI 158. QRS 70. QT 368. QTC 462. Left axis. Normal QRS. No acute ST change. Medical Decision Making - Medical Decision Making Patient reevaluated and updated. Case was discussed with Dr. Villarreal, covering for Dr. Stone, who admits for Dr. Paz. - Lab Data Result diagrams: 01/10/19 08:20 01/10/19 08:20 Lab Results 01/10/19 01/10/19 01/10/19 Range/Units 08:20 08:20 08:20 WBC 9.5 (3.8-10.6) k/uL RBC 5.64 (4.30-5.90) m/uL Hgb 16.6 (13.0-17.5) gm/dL Hct 49.6 (39.0-53.0) % MCV 87.9 (80.0-100.0) fL MCH 29.4 (25.0-35.0) pg MCHC 33.4 (31.0-37.0) g/dL RDW 14.4 (11.5-15.5) % Plt Count 227 (150-450) k/uL Neutrophils % 78 % Lymphocytes % 14 % Monocytes % 5 % Eosinophils % 1 % Basophils % 1 % Neutrophils # 7.4 (1.3-7.7) k/uL Lymphocytes # 1.4 (1.0-4.8) k/uL Monocytes # 0.5 (0-1.0) k/uL Eosinophils # 0.1 (0-0.7) k/uL Basophils # 0.1 (0-0.2) k/uL PT 10.4 (9.0-12.0) sec INR 1.0 (<1.2) APTT 22.2 (22.0-30.0) sec Sodium 135 L (137-145) mmol/L Potassium 4.7 (3.5-5.1) mmol/L Chloride 103 (98-107) mmol/L Carbon Dioxide 24 (22-30) mmol/L Anion Gap 8 mmol/L BUN 14 (9-20) mg/dL Creatinine 0.71 (0.66-1.25) mg/dL Est GFR (CKD-EPI)AfAm >90 (>60 ml/min/1.73 sqM) Est GFR (CKD-EPI)NonAf >90 (>60 ml/min/1.73 sqM) Glucose 329 H (74-99) mg/dL Calcium 8.9 (8.4-10.2) mg/dL Total Bilirubin 1.1 (0.2-1.3) mg/dL AST 19 (17-59) U/L ALT 20 L (21-72) U/L Alkaline Phosphatase 135 H (38-126) U/L Troponin I (0.000-0.034) ng/mL Total Protein 6.4 (6.3-8.2) g/dL Albumin 3.7 (3.5-5.0) g/dL Urine Color Urine Appearance (Clear) Urine pH (5.0-8.0) Ur Specific [place] (1.001-1.035) Urine Protein (Negative) Urine Glucose (UA) (Negative) Urine Blood (Negative) Urine Nitrite (Negative) Urine Bilirubin (Negative) Urine Urobilinogen (<2.0) mg/dL Ur Leukocyte Esterase (Negative) 01/10/19 01/10/19 Range/Units 08:20 09:54 WBC (3.8-10.6) k/uL RBC (4.30-5.90) m/uL Hgb (13.0-17.5) gm/dL Hct (39.0-53.0) % MCV (80.0-100.0) fL MCH (25.0-35.0) pg MCHC (31.0-37.0) g/dL RDW (11.5-15.5) % Plt Count (150-450) k/uL Neutrophils % % Lymphocytes % % Monocytes % % Eosinophils % % Basophils % % Neutrophils # (1.3-7.7) k/uL Lymphocytes # (1.0-4.8) k/uL Monocytes # (0-1.0) k/uL Eosinophils # (0-0.7) k/uL Basophils # (0-0.2) k/uL PT (9.0-12.0) sec INR (<1.2) APTT (22.0-30.0) sec Sodium (137-145) mmol/L Potassium (3.5-5.1) mmol/L Chloride (98-107) mmol/L Carbon Dioxide (22-30) mmol/L Anion Gap mmol/L BUN (9-20) mg/dL Creatinine (0.66-1.25) mg/dL Est GFR (CKD-EPI)AfAm (>60 ml/min/1.73 sqM) Est GFR (CKD-EPI)NonAf (>60 ml/min/1.73 sqM) Glucose (74-99) mg/dL Calcium (8.4-10.2) mg/dL Total Bilirubin (0.2-1.3) mg/dL AST (17-59) U/L ALT (21-72) U/L Alkaline Phosphatase (38-126) U/L Troponin I <0.012 (0.000-0.034) ng/mL Total Protein (6.3-8.2) g/dL Albumin (3.5-5.0) g/dL Urine Color Yellow Urine Appearance Clear (Clear) Urine pH 6.0 (5.0-8.0) Ur Specific [place] 1.032 (1.001-1.035) Urine Protein Trace H (Negative) Urine Glucose (UA) 4+ H (Negative) Urine Blood Negative (Negative) Urine Nitrite Negative (Negative) Urine Bilirubin Negative (Negative) Urine Urobilinogen 3.0 (<2.0) mg/dL Ur Leukocyte Esterase Negative (Negative) - Radiology Data Radiology results: report reviewed (cT scan of the brain reveals old lacunar infarct. No acute intercranial abnormality), image reviewed (X-ray shows no acute process) Disposition Clinical Impression: CVA (cerebral vascular accident) Disposition: ADMITTED IP TO THIS HOSP Is patient prescribed a controlled substance at d/c from ED?: No Referrals: Salomon Paz DO [Primary Care Provider] - 1-2 days Decision Time: 10:38
[2019-01-10 08:51] LABS: Basophils # (A) 0.1 k/uL (0-0.2); Basophils % (A) 1 %; Eosinophils # (A) 0.1 k/uL (0-0.7); Eosinophils % (A) 1 %; HCT 49.6 % (39.0-53.0); HGB 16.6 gm/dL (13.0-17.5); Lymphocytes # (A) 1.4 k/uL (1.0-4.8); Lymphocytes % (A) 14 %; MCH 29.4 pg (25.0-35.0); MCHC 33.4 g/dL (31.0-37.0); MCV 87.9 fL (80.0-100.0); Monocytes # (A) 0.5 k/uL (0-1.0); Monocytes % (A) 5 %; Neutrophils # (A) 7.4 k/uL (1.3-7.7); Neutrophils % (A) 78 %; Platelet Count 227 k/uL (150-450); RBC 5.64 m/uL (4.30-5.90); RDW 14.4 % (11.5-15.5); WBC 9.5 k/uL (3.8-10.6)
[2019-01-10 08:56] LABS: Partial Thromboplastin Time 22.2 sec (22.0-30.0); Prothrombin Time 10.4 sec (9.0-12.0)
[2019-01-10 09:00] LABS: ALT 20 U/L (21-72); AST 19 U/L (17-59); Albumin 3.7 g/dL (3.5-5.0); Alkaline Phosphatase 135 U/L (38-126); Anion Gap 8 mmol/L; Blood Urea Nitrogen 14 mg/dL (9-20); Calcium 8.9 mg/dL (8.4-10.2); Carbon Dioxide 24 mmol/L (22-30); Chloride 103 mmol/L (98-107); Glucose 329 mg/dL (74-99); Potassium 4.7 mmol/L (3.5-5.1); Sodium 135 mmol/L (137-145); Total Bilirubin 1.1 mg/dL (0.2-1.3); Total Protein 6.4 g/dL (6.3-8.2)
--- NOTE | 2019-01-10 09:03 | XR ---
EXAMINATION TYPE: XR chest 2V DATE OF EXAM: 01/10/2019 COMPARISON: 05/26/2017 INDICATION: Altered mental status multiple falls TECHNIQUE: Frontal and lateral views of the chest are obtained. FINDINGS: The heart size is normal. The pulmonary vasculature is normal. The lungs are clear. Azygos fissure is present, a normal variant. IMPRESSION: 1. No acute pulmonary process.
[2019-01-10] MEDS ORDERED: LABETALOL SYRINGE 5 MG/ML IVP STA (09:20)
[2019-01-10] MEDS ORDERED: MORPHINE SULFATE 4 MG/ML SYRINGE IV STA (09:41)
[2019-01-10 10:02] LABS: Appearance,Urine Clear (Clear); Bilirubin,Urine Negative (Negative); Blood,Urine Negative (Negative); Color,Urine Yellow; Glucose,Urine (UA) 4+ (Negative); Leukocyte Esterase,Urine Negative (Negative); Nitrite,Urine Negative (Negative); Protein,Urine Trace (Negative); Specific Gravity,Urine 1.032 (1.001-1.035)
--- NOTE | 2019-01-10 10:18 | CT ---
EXAMINATION TYPE: CT brain wo con DATE OF EXAM: 01/10/2019 COMPARISON: None INDICATION: Fall today without injury per patient. complains of leg weakness DLP: 1142.4 mGycm, Automated exposure control for dose reduction was used. CONTRAST: None CT of the brain is performed utilizing 3 mm thick sections through the posterior fossa and 3 mm thick sections through the remaining calvarium. Study is performed within 24 hours of arrival to the hosp ital. No abnormal hyperdensity is present to suggest an acute intracranial hemorrhage. No mass lesion is evident. There is some prominence of the foramen magnum. No acute infarcts are evident. Lacunar infarcts within the left basal ganglion. Ventricles and sulci are appropriate for the patient age. Paranasal sinuses and mastoid air cells within the [id number] are clear. Some mild soft tissue swelling is over the left frontal region. No underlying fracture is evident. IMPRESSIONS: 1. Old lacunar infarct left basal ganglion with ex vacuo effect on the lateral ventricle. 2. Magna cisterna magna steer fossa, normal variant. 3. Superficial soft tissue swelling left frontal region.
--- NOTE | 2019-01-10 10:36 | XR ---
EXAMINATION TYPE: XR lumbar spine 2 or 3V DATE OF EXAM: 01/10/2019 COMPARISON: 10/04/2014 HISTORY: Pain, fall TECHNIQUE: Three-view lumbar spine FINDINGS: There 5 lumbar-type vertebral bodies. Pedicles are intact. There is narrowing of the L5-S1 disc height. Disc heights are otherwise preserved. Vertebral body heights are preserved. IMPRESSION: 1. Degenerative disc changes L5-S1. 2. Exam is stable from comparison. 3. No acute posttraumatic changes
[2019-01-10] MEDS ORDERED: ASPIRIN 325 MG TAB PO STA (10:38)
[2019-01-10 10:49] LABS: Ketones,Urine 2+ (Negative)
[2019-01-10] MEDS ORDERED: ENALAPRILAT 1.25 MG/ML 1 ML VIAL IVP STA (12:05)
[2019-01-10] MEDS ORDERED: ONDANSETRON 4 MG/2 ML VIAL IVP STA (12:06)
--- NOTE | 2019-01-10 12:27 | US ---
EXAMINATION TYPE: US carotid duplex BILAT DATE OF EXAM: 01/10/2019 COMPARISON: NONE CLINICAL HISTORY: Stenosis. Left sided weakness, history of stroke, exam done portable in ER. EXAM MEASUREMENTS: RIGHT: Peak Systolic Velocity (PSV) cm/sec ----- Right CCA: 106.8 ----- Right ICA: 46.2 ----- Right ECA: 98.8 ICA/CCA ratio: 0.4 RIGHT: End Diastole cm/sec ----- Right CCA: 25.0 ----- Right ICA: 19.7 ----- Right ECA: 12.1 LEFT: Peak Systolic Velocity (PSV) cm/sec ----- Left CCA: 76.0 ----- Left ICA: 45.0 ----- Left ECA: 88.7 ICA/CCA ratio: 0.6 LEFT: End Diastole cm/sec ----- Left CCA: 20.8 ----- Left ICA: 19.3 ----- Left ECA: 9.5 VERTEBRALS (direction of flow): Right Vertebral: Appears retrograde Left Vertebral: Antegrade Rhythm: Normal Difficult and limited study due to torturous vessels and patient heavy breathing Bilateral intimal thickening, minimal plaque bilateral bulb, no elevated velocities, no significant s tenosis, right vertebral appears to have retrograde flow. IMPRESSION: 1. Atheromatous plaquing without significant flow-limiting stenosis based on velocities. Criteria for Assigning % of Stenosis / Diameter reduction (Estimation based on the indirect measurements of the internal carotid artery velocities (ICA PSV). 1. Normal (no stenosis)=ICA PSV < 125 cm/s: ratio < 2.0: ICA EDV<40 cm/s. 2. Less than 50% stenosis=ICA PSV < 125 cm/s: ratio < 2.0: ICA EDV<40 cm/s. 3. 50 to 69% stenosis=ICA PSV of 125 to 230 cm/s: ratio 2.0 ? 4.0: ICA EDV 40-100 cm/s. 4. Greater than 70% stenosis to near occlusion= ICA PSV > 230 cm/s: ratio > 4.0: ICA EDV > 100 cm/s. 5. Near occlusion= ICA PSV velocities may be low or undetectable: variable ratio and ICA EDV. 6. Total occlusion=unable to detect flow.
[2019-01-10] MEDS: SODIUM CHLORIDE 0.9% 1,000 ML IV SCH (12:54)
[2019-01-10 13:56] LABS: Glucose,Whole Blood 319 mg/dL (75-99)
[2019-01-10] MEDS: INSULIN ASPART (NovoLOG) 100 UNIT/ML VIAL SQ SCH ×3 (13:59→21:35)
--- NOTE | 2019-01-10 16:23 | P.HPIM ---
History of Present Illness Chief Complaint: Weakness 63-year-old gentleman with a past medical history below comes in with above- mentioned complaint. The patient says that he was okay until weeks ago when he started having weakness which was worse than his usual weakness on the left side. He does not complain of any problems with his speech, but according to his sister was at the bedside and is also his caregiver, she thinks that his speech is little slurry when compared to the baseline. he does not complain of any lightheadedness or dizziness but says that his left side is more weaker than normal and he fell yesterday and again today as well. He otherwise does not complain of any chest pain or racing heart, no cough no shortness breath, no abdominal pain, nausea and vomiting, or diarrhea consultation, no tingling numbness in the extremities, no itch no rash ER course-patient's vitals were stable. Labwork was done does WBC 9.5 hemoglobin 16.6 platelets 227 sodium 134 potassium 4.7 bun 14 creatinine 0.7 with GFR more than 90 glucose [address] head without contrast showed old lacunar infarct left basal ganglia with ExVACUO to affect on the lateral ventricle. CAROTID WAS DONE WHICH SHOWED ATHEROMATOUS PLAGUING WITHOUT SIGNIFICANT FLOW LIMITATION STENOSIS. X-RAY OF THE LUMBAR SPINE WAS DONE WHICH SHOWED DEGENERATIVE DISC CHANGES AT L5-S1 NO ACUTE posttraumatic changes. 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 History of Any Multi-Drug Resistant Organisms: None Reported Past Surgical History: Hernia Repair Additional Past Surgical History / Comment(s): mastoid repair on left ear Past Anesthesia/Blood Transfusion Reactions: No Reported Reaction Past Psychological History: Depression Smoking Status: Never smoker Past Alcohol Use History: None Reported Past Drug Use History: None Reported - Past Family History Father History Unknown: Yes Mother Family Medical History: Cancer, Myocardial Infarction ([place]) Medications and Allergies Home Medications Medication Instructions Recorded Confirmed Type No Known Home Medications 01/10/19 01/10/19 History Allergies Allergy/AdvReac Type Severity Reaction Status Date / Time tramadol Allergy Itching Verified 01/10/19 08:01 Physical Exam Vitals: Vital Signs Temp Pulse Pulse Resp BP BP Pulse Ox 01/10/19 14:59 98 F 92 18 146/96 95 01/10/19 14:11 98.9 F 83 17 148/103 97 01/10/19 13:39 87 17 148/102 97 01/10/19 13:00 83 20 148/103 01/10/19 12:55 90 18 148/102 01/10/19 12:39 98.9 F 84 18 160/100 01/10/19 12:30 85 16 159/129 01/10/19 12:17 159/129 01/10/19 12:00 82 8 L 167/120 01/10/19 11:58 82 16 177/116 01/10/19 11:39 99.0 F 84 18 159/129 97 01/10/19 11:30 82 16 177/116 01/10/19 11:00 81 17 193/114 96 01/10/19 10:39 99.0 F 18 167/120 01/10/19 10:30 80 17 158/103 96 01/10/19 10:00 80 19 195/137 01/10/19 09:30 17 179/125 01/10/19 09:00 18 184/133 99 01/10/19 08:30 96 16 204/135 01/10/19 08:07 99.2 F 101 H 18 204/135 95 01/10/19 08:05 101 H 16 93 L Intake and Output 01/10/19 01/10/19 01/10/19 06:59 14:59 22:59 Other: Weight 88.405 kg On exam, alert and oriented x3. HEENT: Conjunctivae normal. eyes normal. He has scabs on the middle part of his left eye and he is On this left garrido left temporal area and the left scalp in the parietal area. Patient also has some dried crusted blood in the left nostril NECK: No JVD. No thyroid enlargement. No LNs CARDIOVASCULAR: S1, S2 muffled. No murmur RESPIRATION: Breath sounds diminished in the bases. No rhonchi or crackles. No bronchial breathing. ABDOMEN: Soft, nontender . No guarding. no masses palpable. No ascites, No hepatosplenomegaly.Bowel sounds heard. LEGS: No edema. no swelling NERVOUS SYSTEM: Patient has weakness in his left upper and lower extremity strength is about 2 x 5 in both upper and lower extremity. Patient is having slurry speech and slight facial droop on the left side. Joints: No active swelling. No inflammation. Lymphatic system. No LN neck axilla or groin. Results CBC & Chem 7: 01/10/19 08:20 01/10/19 08:20 Labs: Abnormal Lab Results - Last 24 Hours (Table) 01/10/19 01/10/19 01/10/19 Range/Units 08:20 09:54 13:41 Sodium 135 L (137-145) mmol/L Glucose 329 H (74-99) mg/dL POC Glucose (mg/dL) 319 H (75-99) mg/dL ALT 20 L (21-72) U/L Alkaline Phosphatase 135 H (38-126) U/L Urine Protein Trace H (Negative) Urine Glucose (UA) 4+ H (Negative) Urine Ketones 2+ H (Negative) Thrombosis Risk Factor Assmnt - Choose All That Apply Any of the Below Risk Factors Present?: Yes Other Risk Factors: Yes Each Risk Factor Represents 2 Points: Age 61-74 years Thrombosis Risk Factor Assessment Total Risk Factor Score: 2 Thrombosis Risk Factor Assessment Level: Low Risk Assessment and Plan Assessment: - Left-sided weakness more than normal - Non-compliance with medications - Back pain with paraspinal tenderness - History of CVA/TIA - History of hypertension - History of diabetes - History of renal disease - History of cancer Plan - Patient was admitted to [facility] with telemetry - At this time the patient's symptoms are for about a week. He probably is having CVA but is out of the TPA window - At this time neurology will be consulted wait for the expert recommendations - We'll for the patient's stroke pathway to that time - Patient's sister who is the caregiver says that he is very noncompliant with his medication and does not take them. She had to throw away the medications about a year ago and since that time they don't remember him taking any medications. Instructed the patient on the dangers of not being compliant with the medications. Patient showed understanding. For now we'll continue the aspirin will put him on lisinopril 10 mg, will put him on Lipitor 40 mg, we will also put him on Lantus 10 mg at bedtime and sliding scale. - For his back pain we will put him on Ruth and Flexeril. He is not having any central pain but he is having paraspinal tenderness at the time examination. - DVT and GI prophylaxis - We'll order for PT OT for possible placement - We'll order for lab work in the morning - Expected length of stay more than 2 midnights - Patient is full code Time with Patient: Greater than 30
[2019-01-10 16:52] LABS: Glucose,Whole Blood 324 mg/dL (75-99)
[2019-01-10] MEDS: HYDROcodone/APAP 5-325MG 1 EACH TAB PO PRN (17:36)
--- NOTE | 2019-01-10 18:34 | P.CNNES ---
History of Present Illness Consult date: 01/10/19 Reason for Consult: CVA History of Present Illness: Patient is a 63-year-old male, who had history of stroke with left hemiparesis 2 years ago. Patient states that he had some residual deficits from the stroke, however he was still able to move his left arm up and down, also able to get around with a walker. Patient states that last night he developed worsening of his left-sided weakness. He came to ER, where he was evaluated and and sent home. Patient after he was sent home, and suffered from couple falls while walking with his walker, therefore came back to the hospital this morning at around 8 AM. He was admitted with a possible stroke. Patient has been started on aspirin 325 mg daily. He was not taking any antiplatelet medication prior to the arrival. On review of ED report, it was mentioned that patient has been having weakness for around one week, had a fall yesterday and then this morning and patient has noticed worsening of his baseline left hemiparesis. Patient also has history of nosebleed. 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 Patient had a carotid Doppler which revealed atheromatous plaquing without significant stenosis. EKG showed normal sinus rhythm, chest x-ray was normal. Patient's blood test shows normal CBC, PT/PTT, sodium 135 potassium 4.7 renal functions normal. Liver functions normal, UA negative. On reviewing previous record, patient had acute infarction involving inferior cerebellum bilaterally with extension into the left posterior mid brain, and left thalamus in the anterior medial region on 02/14/2015. Review of Systems As per HPI. Patient complaining of significant left-sided weakness. Denies headache any problem with the vision. Gait dysfunction falls. 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 History of Any Multi-Drug Resistant Organisms: None Reported Past Surgical History: Hernia Repair Additional Past Surgical History / Comment(s): mastoid repair on left ear Past Anesthesia/Blood Transfusion Reactions: No Reported Reaction Past Psychological History: Depression Smoking Status: Never smoker Past Alcohol Use History: None Reported Past Drug Use History: None Reported - Past Family History Father History Unknown: Yes Mother Family Medical History: Cancer, Myocardial Infarction ([place]) Medications and Allergies Home Medications Medication Instructions Recorded Confirmed Type No Known Home Medications 01/10/19 01/10/19 History Allergies Allergy/AdvReac Type Severity Reaction Status Date / Time tramadol Allergy Itching Verified 01/10/19 08:01 Physical Examination - Vital Signs Vital Signs: Vital Signs Temp Pulse Pulse Resp BP BP Pulse Ox 01/10/19 16:00 98.2 F 84 18 160/91 91 L 01/10/19 14:59 98 F 92 18 146/96 95 01/10/19 14:11 98.9 F 83 17 148/103 97 01/10/19 13:39 87 17 148/102 97 01/10/19 13:00 83 20 148/103 01/10/19 12:55 90 18 148/102 01/10/19 12:39 98.9 F 84 18 160/100 01/10/19 12:30 85 16 159/129 01/10/19 12:17 159/129 01/10/19 12:00 82 8 L 167/120 01/10/19 11:58 82 16 177/116 01/10/19 11:39 99.0 F 84 18 159/129 97 01/10/19 11:30 82 16 177/116 01/10/19 11:00 81 17 193/114 96 01/10/19 10:39 99.0 F 18 167/120 01/10/19 10:30 80 17 158/103 96 01/10/19 10:00 80 19 195/137 01/10/19 09:30 17 179/125 01/10/19 09:00 18 184/133 99 01/10/19 08:30 96 16 204/135 01/10/19 08:07 99.2 F 101 H 18 204/135 95 01/10/19 08:05 101 H 16 93 L Intake and Output 01/10/19 01/10/19 01/10/19 06:59 14:59 22:59 Output Total 50 Balance -50 Output: Urine 50 Other: Weight 88.405 kg On examination patient is a late middle aged male, in no acute distress. He is alert and awake fully oriented speech and language functions are normal. On cranial nerve examination his pupils are round and reacting. Visual kong are full. External muscles appears intact. His left palpebral fissure is slightly smaller from previous scar tissue over the inner canthus. His roof of the left nostril is missing. He has left facial weakness, peripheral type. Tongue protrudes the midline. On muscle strength testing the strength is normal in the right arm and right leg. On the left side, his deltoid is 2-3, biceps 4, triceps 5, rehabilitation aide/scheduler 3+. Hip flexion 3+, knee extension normal and ankle dorsiflexion normal. Reflexes are brisk on the left, with Babinski on the left. Sensory touch is decreased on the left. Tone is increased on the left side. Left side appears spastic. Results - Laboratory Findings CBC and BMP: 01/10/19 08:20 01/10/19 08:20 Abnormal Lab Findings: Abnormal Labs 01/10/19 01/10/19 01/10/19 08:20 09:54 13:41 Sodium 135 L Glucose 329 H POC Glucose (mg/dL) 319 H ALT 20 L Alkaline Phosphatase 135 H Urine Protein Trace H Urine Glucose (UA) 4+ H Urine Ketones 2+ H 01/10/19 16:50 Sodium Glucose POC Glucose (mg/dL) 324 H ALT Alkaline Phosphatase Urine Protein Urine Glucose (UA) Urine Ketones Assessment and Plan Assessment: * Acute ischemic CVA, with worsening of his baseline left hemiparesis. 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 * Diabetes, not well controlled. Patient's last hemoglobin A1c documented 12.3 on 05/15/2016. * Hypertension * History of severe nosebleed in the past Plan: * Agree with starting aspirin. * MRI of the brain. * 2-D echo with bubble study * Hemoglobin A1c and fasting a.m. lipid panel * DVT prophylaxis. * PT OT.
[2019-01-10] MEDS ORDERED: INSULIN DETEMIR (LEVEMIR) 100 UNIT/ML SYR SQ SCH (21:00)
[2019-01-10 21:12] LABS: Glucose,Whole Blood 263 mg/dL (75-99)
[2019-01-10] MEDS: CYCLOBENZAPRINE 5 MG TAB PO PRN (21:48)
[2019-01-11] MEDS: HYDROcodone/APAP 5-325MG 1 EACH TAB PO PRN ×4 (03:56→20:25)
[2019-01-11] MEDS: ENALAPRILAT 1.25 MG/ML 1 ML VIAL IVP PRN (03:58)
[2019-01-11] MEDS: SODIUM CHLORIDE 0.9% 1,000 ML IV SCH ×3 (03:58→13:26)
[2019-01-11 06:04] LABS: Glucose,Whole Blood 222 mg/dL (75-99)
[2019-01-11] MEDS: INSULIN ASPART (NovoLOG) 100 UNIT/ML VIAL SQ SCH ×4 (06:18→20:24)
[2019-01-11 06:20] LABS: HCT 44.4 % (39.0-53.0); HGB 14.3 gm/dL (13.0-17.5); MCH 28.7 pg (25.0-35.0); MCHC 32.3 g/dL (31.0-37.0); Mean Platelet Volume 8.1; Platelet Count 191 k/uL (150-450); RBC 4.98 m/uL (4.30-5.90); RDW 14.1 % (11.5-15.5); WBC 8.9 k/uL (3.8-10.6)
[2019-01-11 06:31] LABS: Anion Gap 4 mmol/L; Blood Urea Nitrogen 16 mg/dL (9-20); Calcium 8.6 mg/dL (8.4-10.2); Carbon Dioxide 27 mmol/L (22-30); Chloride 104 mmol/L (98-107); Cholesterol 142 mg/dL (<200); Glucose 259 mg/dL (74-99); HDL Cholesterol 35 mg/dL (40-60); LDL Cholesterol,Calculated 86 mg/dL (0-99); Potassium 3.8 mmol/L (3.5-5.1); Sodium 135 mmol/L (137-145); Triglycerides 107 mg/dL (<150)
[2019-01-11] MEDS: ATORVASTATIN 40 MG TAB PO SCH (07:58)
[2019-01-11] MEDS: ASPIRIN 325 MG TAB PO SCH (07:58)
[2019-01-11] MEDS ORDERED: LISINOPRIL 10 MG TAB PO SCH (09:00)
[2019-01-11 11:28] LABS: Glucose,Whole Blood 277 mg/dL (75-99)
[2019-01-11] MEDS: LIDOCAINE 5% PATCH TOPICAL SCH (13:26)
--- NOTE | 2019-01-11 13:51 | P.PN ---
Subjective 63-year-old gentleman with a past medical history below comes in with above- mentioned complaint. The patient says that he was okay until weeks ago when he started having weakness which was worse than his usual weakness on the left side. He does not complain of any problems with his speech, but according to his sister was at the bedside and is also his caregiver, she thinks that his speech is little slurry when compared to the baseline. he does not complain of any lightheadedness or dizziness but says that his left side is more weaker than normal and he fell yesterday and again today as well. He otherwise does not complain of any chest pain or racing heart, no cough no shortness breath, no abdominal pain, nausea and vomiting, or diarrhea consultation, no tingling numbness in the extremities, no itch no rash 01/11/2019 Patient says that his left side is still weak. He is having pain in the back and the right paraspinal area in the lumbar region Does not complain of any chest pain racing heart No cough no shortness of breath Objective - Vital Signs Vital signs: Vital Signs Temp 96.8 F L 01/11/19 11:15 Pulse 83 01/11/19 11:15 Resp 18 01/11/19 11:15 BP 157/108 01/11/19 11:15 Pulse Ox 96 01/11/19 11:15 Intake & Output 01/10/19 01/11/19 01/11/19 18:59 06:59 18:59 Intake Total 200 360 Output Total 350 150 300 Balance -150 -150 60 Weight 88.405 kg 91 kg Intake: Oral 200 360 Output: Urine 350 150 300 Other: Voiding Method Urinal Urinal # Voids 2 1 1 - Exam On exam, alert and oriented x3. HEENT: Conjunctivae normal. eyes normal. He has scabs on the middle part of his left eye and he is On this left garrido left temporal area and the left scalp in the parietal area. Patient also has some dried crusted blood in the left nostril NECK: No JVD. No thyroid enlargement. No LNs CARDIOVASCULAR: S1, S2 muffled. No murmur RESPIRATION: Breath sounds diminished in the bases. No rhonchi or crackles. No bronchial breathing. ABDOMEN: Soft, nontender . No guarding. no masses palpable. No ascites, No hepatosplenomegaly.Bowel sounds heard. LEGS: No edema. no swelling NERVOUS SYSTEM: Patient has weakness in his left upper and lower extremity strength is about 2 x 5 in both upper and lower extremity. Patient is having slurry speech and slight facial droop on the left side. Joints: No active swelling. No inflammation. Lymphatic system. No LN neck axilla or groin. - Labs CBC & Chem 7: 01/11/19 05:31 01/11/19 05:31 Labs: Abnormal Lab Results - Last 24 Hours (Table) 01/10/19 01/10/19 01/10/19 Range/Units 13:41 16:50 21:02 Sodium (137-145) mmol/L Glucose (74-99) mg/dL POC Glucose (mg/dL) 319 H 324 H 263 H (75-99) mg/dL HDL Cholesterol (40-60) mg/dL 01/11/19 01/11/19 01/11/19 Range/Units 05:31 05:59 11:26 Sodium 135 L (137-145) mmol/L Glucose 259 H (74-99) mg/dL POC Glucose (mg/dL) 222 H 277 H (75-99) mg/dL HDL Cholesterol 35 L (40-60) mg/dL Assessment and Plan Assessment: - Left-sided weakness more than normal - Non-compliance with medications - Back pain with paraspinal tenderness - History of CVA/TIA - History of hypertension - History of diabetes - History of renal disease - History of cancer Plan - Patient was admitted to [facility] with telemetry - At this time the patient's symptoms are for about a week. He probably is having CVA but is out of the TPA window - At this time neurology will be consulted wait for the expert recommendations - We'll for the patient's stroke pathway to that time - Patient's sister who is the caregiver says that he is very noncompliant with his medication and does not take them. She had to throw away the medications about a year ago and since that time they don't remember him taking any medications. Instructed the patient on the dangers of not being compliant with the medications. Patient showed understanding. For now we'll continue the aspirin will put him on lisinopril 10 mg, will put him on Lipitor 40 mg, we will also put him on Lantus 10 mg at bedtime and sliding scale. - For his back pain we will put him on [place] and Flexeril. He is not having any central pain but he is having paraspinal tenderness at the time examination. - DVT and GI prophylaxis - We'll order for PT OT for possible placement - We'll order for lab work in the morning - Expected length of stay more than 2 midnights - Patient is full code 01/11/2019 History of present doing better today. We will see how he does today and probably change his insulin doses tomorrow We'll increase lisinopril to 20 mg daily The patient neurology recommendations. Patient to get MRI and echo PTOT on board Anticipating transfer to rehab once medically stable Time with Patient: Less than 30
--- NOTE | 2019-01-11 14:56 | ECHOF ---
Referral Reason:Thrombus MEASUREMENTS -------- HEIGHT: 177.8 cm WEIGHT: 90.7 kg BP: IVSd: 1.8 cm (0.6 - 1.1) LVIDd: 3.5 cm (3.9 - 5.3) LVPWd: 2.0 cm (0.6 - 1.1) IVSs: 2.6 cm LVIDs: 2.2 cm LVPWs: 2.3 cm Ao Diam: 3.5 cm (2.0 - 3.7) AV Cusp: 2.1 cm (1.5 - 2.6) LA Diam: 3.4 cm (2.7 - 3.8) MV EXCURSION: 13.536 mm (> 18.000) MV EF SLOPE: 61 mm/s (70 - 150) EPSS: 0.8 cm MV E Truman: 0.54 m/s MV DecT: 232 ms MV A [place]: 0.76 m/s MV E/A Ratio: 0.70 RAP: 5.00 mmHg RVSP: 17.86 mmHg FINDINGS -------- Sinus rhythm. This was a technically good study. The left ventricular size is normal. There is severe concentric left ventricular hypertrophy. Ove rall left ventricular systolic function is normal with, an EF between 55 - 60 %. The right ventricle is normal in size. The left atrial size is normal. The right atrial size is normal. Interatrial and interventricular septum intact. The aortic valve is trileaflet and appears structurally normal. The mitral valve leaflets are mildly thickened. Mild mitral regurgitation is present. Trace tricuspid regurgitation present. The right ventricular systolic pressure, as measured by Dopp ler, is 17.86mmHg. There is no pulmonic regurgitation present. The aortic root size is normal. Normal inferior vena cava with normal inspiratory collapse consistent with estimated right atrial pre ssure of 5 mmHg. There is no pericardial effusion. CONCLUSIONS -------- 1. Sinus rhythm. 2. This was a technically good study. 3. The left ventricular size is normal. 4. There is severe concentric left ventricular hypertrophy. 5. Overall left ventricular systolic function is normal with, an EF between 55 - 60 %. 6. The right ventricle is normal in size. 7. The left atrial size is normal. 8. The right atrial size is normal. 9. Interatrial and interventricular septum intact. 10. The aortic valve is trileaflet and appears structurally normal. 11. The mitral valve leaflets are mildly thickened. 12. Mild mitral regurgitation is present. 13. Trace tricuspid regurgitation present. 14. The right ventricular systolic pressure, as measured by Doppler, is 17.86mmHg. 15. There is no pulmonic regurgitation present. 16. The aortic root size is normal. 17. Normal inferior vena cava with normal inspiratory collapse consistent with estimated right atrial pressure of 5 mmHg. 18. There is no pericardial effusion. [employer]SEM[employer]ER: Ashley Alanis RDCS
--- NOTE | 2019-01-11 16:23 | P.PN ---
Subjective Progress Note Date: 01/11/19 Patient denies any changes in his condition. Still with left hemiparetic, left arm more than leg. No new concerns. Objective - Vital Signs Vital signs: Vital Signs Temp 97.7 F 01/11/19 15:31 Pulse 84 01/11/19 15:31 Resp 18 01/11/19 15:31 BP 148/97 01/11/19 15:31 Pulse Ox 98 01/11/19 15:31 Intake & Output 01/10/19 01/11/19 01/11/19 18:59 06:59 18:59 Intake Total 200 360 Output Total 350 150 300 Balance -150 -150 60 Weight 88.405 kg 91 kg Intake: Oral 200 360 Output: Urine 350 150 300 Other: Voiding Method Urinal Urinal # Voids 2 1 1 - Exam Unchanged. Left arm still very weak, spastic - Labs CBC & Chem 7: 01/11/19 05:31 01/11/19 05:31 Labs: Abnormal Lab Results - Last 24 Hours (Table) 01/10/19 01/10/19 01/11/19 Range/Units 16:50 21:02 05:31 Sodium 135 L (137-145) mmol/L Glucose 259 H (74-99) mg/dL POC Glucose (mg/dL) 324 H 263 H (75-99) mg/dL HDL Cholesterol 35 L (40-60) mg/dL 01/11/19 01/11/19 Range/Units 05:59 11:26 Sodium (137-145) mmol/L Glucose (74-99) mg/dL POC Glucose (mg/dL) 222 H 277 H (75-99) mg/dL HDL Cholesterol (40-60) mg/dL Assessment and Plan Assessment: * Acute ischemic CVA, with worsening of his baseline left hemiparesis. 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 * Diabetes, not well controlled. Patient's last hemoglobin A1c documented 12.3 on 05/15/2016. * Hypertension * History of severe nosebleed in the past Plan: * Continue aspirin 325 mg daily. * MRI of the brain pending. * 2-D echo showed EF 55-60%. Interatrial and interventricular septum intact. Mitral valve leaflets are mildly thickened. Mild MR. No obvious embolic source found. * Hemoglobin A1c still pending * Fasting a.m. lipid panel showed cholesterol 142, LDL 86, HDL 35. Continue statins. * DVT prophylaxis. * PT OT.
[2019-01-11 17:01] LABS: Glucose,Whole Blood 286 mg/dL (75-99)
[2019-01-11 20:13] LABS: Glucose,Whole Blood 384 mg/dL (75-99)
[2019-01-11] MEDS ORDERED: INSULIN DETEMIR (LEVEMIR) 100 UNIT/ML SYR SQ SCH (21:00)
[2019-01-12] MEDS: HYDROcodone/APAP 5-325MG 1 EACH TAB PO PRN ×6 (00:36→20:59)
[2019-01-12] MEDS: ENALAPRILAT 1.25 MG/ML 1 ML VIAL IVP PRN ×4 (00:36→15:10)
[2019-01-12] MEDS: SODIUM CHLORIDE 0.9% 1,000 ML IV SCH ×2 (04:30→14:30)
[2019-01-12 06:35] LABS: Glucose,Whole Blood 193 mg/dL (75-99)
[2019-01-12] MEDS: INSULIN ASPART (NovoLOG) 100 UNIT/ML VIAL SQ SCH ×4 (06:46→21:12)
[2019-01-12 07:08] LABS: Anion Gap 5 mmol/L; Blood Urea Nitrogen 13 mg/dL (9-20); Calcium 8.4 mg/dL (8.4-10.2); Carbon Dioxide 25 mmol/L (22-30); Chloride 107 mmol/L (98-107); Glucose 220 mg/dL (74-99); Potassium 4.2 mmol/L (3.5-5.1); Sodium 137 mmol/L (137-145)
[2019-01-12 07:15] LABS: HGB 14.9 gm/dL (13.0-17.5); MCH 28.9 pg (25.0-35.0); MCHC 32.5 g/dL (31.0-37.0); MCV 88.8 fL (80.0-100.0); Mean Platelet Volume 8.2; Platelet Count 191 k/uL (150-450); RBC 5.18 m/uL (4.30-5.90); WBC 8.5 k/uL (3.8-10.6)
[2019-01-12] MEDS: ASPIRIN 325 MG TAB PO SCH (08:34)
[2019-01-12] MEDS: ATORVASTATIN 40 MG TAB PO SCH (08:34)
[2019-01-12] MEDS ORDERED: LISINOPRIL 20 MG TAB PO SCH (09:00)
[2019-01-12 11:49] LABS: Glucose,Whole Blood 254 mg/dL (75-99)
[2019-01-12] MEDS ORDERED: amLODIPine 5 MG TAB PO SCH (12:00)
[2019-01-12] MEDS: LIDOCAINE 5% PATCH TOPICAL SCH (12:12)
--- NOTE | 2019-01-12 15:43 | P.PN ---
Subjective Progress Note Date: 01/12/19 Patient denies any changes in his condition. Still with left hemiparetic, left arm more than leg. No new concerns. Objective - Vital Signs Vital signs: Vital Signs Temp 97.8 F 01/12/19 12:00 Pulse 88 01/12/19 12:00 Resp 20 01/12/19 12:00 BP 219/121 01/12/19 12:00 Pulse Ox 92 L 01/12/19 12:00 Intake & Output 01/11/19 01/12/19 01/12/19 18:59 06:59 18:59 Intake Total 600 720 Output Total 500 250 300 Balance 100 -250 420 Weight 94 kg Intake: Oral 600 720 Output: Urine 500 250 300 Other: Voiding Method Urinal Urinal Urinal # Voids 1 - Exam Patient's mental status is normal. Cranial nerves significant for left facial weakness. On muscle strength testing, the strength is normal on the right side. On the left side, deltoid is 2, biceps 4-, triceps 5, enterprise account executive 2. Hip flexion 4-, ankle dorsiflexion 5. - Labs CBC & Chem 7: 01/12/19 06:28 01/12/19 06:28 Labs: Abnormal Lab Results - Last 24 Hours (Table) 01/11/19 01/11/19 01/12/19 Range/Units 16:56 20:11 06:22 Creatinine (0.66-1.25) mg/dL Glucose (74-99) mg/dL POC Glucose (mg/dL) 286 H 384 H 193 H (75-99) mg/dL 01/12/19 01/12/19 Range/Units 06:28 11:46 Creatinine 0.60 L (0.66-1.25) mg/dL Glucose 220 H (74-99) mg/dL POC Glucose (mg/dL) 254 H (75-99) mg/dL Assessment and Plan Assessment: * Acute ischemic CVA, with worsening of his baseline left hemiparesis. 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 * Diabetes, not well controlled. Patient's last hemoglobin A1c documented 12.3 on 05/15/2016. * Hypertension * History of severe nosebleed in the past Plan: * Continue aspirin 325 mg daily. * MRI of the brain pending. * 2-D echo showed EF 55-60%. Interatrial and interventricular septum intact. Mitral valve leaflets are mildly thickened. Mild MR. No obvious embolic source found. * Hemoglobin A1c still pending * Fasting a.m. lipid panel showed cholesterol 142, LDL 86, HDL 35. Continue statins. * DVT prophylaxis. * PT OT.
[2019-01-12 17:05] LABS: Glucose,Whole Blood 255 mg/dL (75-99)
[2019-01-12] MEDS ORDERED: amLODIPine 5 MG TAB PO STA (18:28)
[2019-01-12] MEDS ORDERED: hydrALAZINE HCL 20 MG/ML 1 ML VIAL IVP PRN (20:46)
--- NOTE | 2019-01-12 20:52 | P.PN ---
Subjective 63-year-old gentleman with a past medical history below comes in with above- mentioned complaint. The patient says that he was okay until weeks ago when he started having weakness which was worse than his usual weakness on the left side. He does not complain of any problems with his speech, but according to his sister was at the bedside and is also his caregiver, she thinks that his speech is little slurry when compared to the baseline. he does not complain of any lightheadedness or dizziness but says that his left side is more weaker than normal and he fell yesterday and again today as well. He otherwise does not complain of any chest pain or racing heart, no cough no shortness breath, no abdominal pain, nausea and vomiting, or diarrhea consultation, no tingling numbness in the extremities, no itch no rash 01/11/2019 Patient says that his left side is still weak. He is having pain in the back and the right paraspinal area in the lumbar region Does not complain of any chest pain racing heart No cough no shortness of breath 01/12/19 Left side still weak no chest pain, no racing heart BP high this morning Objective - Vital Signs Vital signs: Vital Signs Temp 97.4 F L 01/12/19 18:19 Pulse 81 01/12/19 18:19 Resp 18 01/12/19 18:19 BP 183/103 01/12/19 18:19 Pulse Ox 97 01/12/19 18:19 Intake & Output 01/12/19 01/12/19 01/13/19 06:59 18:59 06:59 Intake Total 1080 Output Total 250 400 Balance -250 680 Weight 94 kg Intake: Oral 1080 Output: Urine 250 400 Other: Voiding Method Urinal Urinal - Exam On exam, alert and oriented x3. HEENT: Conjunctivae normal. eyes normal. He has scabs on the middle part of his left eye and he is On this left garrido left temporal area and the left scalp in the parietal area. Patient also has some dried crusted blood in the left nostril NECK: No JVD. No thyroid enlargement. No LNs CARDIOVASCULAR: S1, S2 muffled. No murmur RESPIRATION: Breath sounds diminished in the bases. No rhonchi or crackles. No bronchial breathing. ABDOMEN: Soft, nontender . No guarding. no masses palpable. No ascites, No hepatosplenomegaly.Bowel sounds heard. LEGS: No edema. no swelling NERVOUS SYSTEM: Patient has weakness in his left upper and lower extremity strength is about 2 x 5 in both upper and lower extremity. Patient is having slurry speech and slight facial droop on the left side. Joints: No active swelling. No inflammation. Lymphatic system. No LN neck axilla or groin. - Labs CBC & Chem 7: 01/12/19 06:28 01/12/19 06:28 Labs: Abnormal Lab Results - Last 24 Hours (Table) 01/12/19 01/12/19 01/12/19 Range/Units 06:22 06:28 11:46 Creatinine 0.60 L (0.66-1.25) mg/dL Glucose 220 H (74-99) mg/dL POC Glucose (mg/dL) 193 H 254 H (75-99) mg/dL 01/12/19 Range/Units 16:54 Creatinine (0.66-1.25) mg/dL Glucose (74-99) mg/dL POC Glucose (mg/dL) 255 H (75-99) mg/dL Assessment and Plan Assessment: - Left-sided weakness more than normal - Non-compliance with medications - Back pain with paraspinal tenderness - History of CVA/TIA - History of hypertension - History of diabetes - History of renal disease - History of cancer Plan - Patient was admitted to [facility] with telemetry - At this time the patient's symptoms are for about a week. He probably is having CVA but is out of the TPA window - At this time neurology will be consulted wait for the expert recommendations - We'll for the patient's stroke pathway to that time - Patient's sister who is the caregiver says that he is very noncompliant with his medication and does not take them. She had to throw away the medications about a year ago and since that time they don't remember him taking any medications. Instructed the patient on the dangers of not being compliant with the medications. Patient showed understanding. For now we'll continue the aspirin will put him on lisinopril 10 mg, will put him on Lipitor 40 mg, we will also put him on Lantus 10 mg at bedtime and sliding scale. - For his back pain we will put him on [place] and Flexeril. He is not having any central pain but he is having paraspinal tenderness at the time examination. - DVT and GI prophylaxis - We'll order for PT OT for possible placement - We'll order for lab work in the morning - Expected length of stay more than 2 midnights - Patient is full code 01/11/2019 History of present doing better today. We will see how he does today and probably change his insulin doses tomorrow We'll increase lisinopril to 20 mg daily The patient neurology recommendations. Patient to get MRI and echo PTOT on board Anticipating transfer to rehab once medically stable 01/12/19 - BP still high, will increase lisinopril to 40mg, add norvasc 10 mg daily - Will add hydralazine 10 mg iv prn - Will need rehab placement. - Will increase the lantus to 20 units HS - will monitor
[2019-01-12] MEDS: CYCLOBENZAPRINE 5 MG TAB PO PRN (20:59)
[2019-01-12] MEDS: INSULIN DETEMIR (LEVEMIR) 100 UNIT/ML SYR SQ SCH (21:06)
[2019-01-12 21:23] LABS: Glucose,Whole Blood 354 mg/dL (75-99)
[2019-01-13] MEDS: SODIUM CHLORIDE 0.9% 1,000 ML IV SCH ×3 (00:07→16:13)
[2019-01-13] MEDS: HYDROcodone/APAP 5-325MG 1 EACH TAB PO PRN ×6 (00:55→21:43)
[2019-01-13] MEDS: ENALAPRILAT 1.25 MG/ML 1 ML VIAL IVP PRN ×3 (05:24→21:37)
[2019-01-13 06:27] LABS: Glucose,Whole Blood 192 mg/dL (75-99)
[2019-01-13] MEDS: INSULIN ASPART (NovoLOG) 100 UNIT/ML VIAL SQ SCH ×4 (07:08→21:37)
[2019-01-13 07:14] LABS: HCT 46.2 % (39.0-53.0); HGB 15.3 gm/dL (13.0-17.5); MCH 29.3 pg (25.0-35.0); MCHC 33.2 g/dL (31.0-37.0); MCV 88.3 fL (80.0-100.0); Platelet Count 183 k/uL (150-450); RBC 5.24 m/uL (4.30-5.90); RDW 14.3 % (11.5-15.5); WBC 7.2 k/uL (3.8-10.6)
[2019-01-13 07:23] LABS: Anion Gap 6 mmol/L; Blood Urea Nitrogen 10 mg/dL (9-20); Calcium 8.8 mg/dL (8.4-10.2); Carbon Dioxide 28 mmol/L (22-30); Chloride 102 mmol/L (98-107); Glucose 202 mg/dL (74-99); Sodium 136 mmol/L (137-145)
[2019-01-13] MEDS: ATORVASTATIN 40 MG TAB PO SCH (09:16)
[2019-01-13] MEDS: amLODIPine 10 MG TAB PO SCH (09:16)
[2019-01-13] MEDS: ASPIRIN 325 MG TAB PO SCH (09:16)
[2019-01-13] MEDS: LIDOCAINE 5% PATCH TOPICAL SCH (09:17)
[2019-01-13] MEDS: LISINOPRIL 20 MG TAB PO SCH (09:17)
[2019-01-13 10:27] LABS: Hemoglobin A1C 12.7 % (4.0-6.0)
[2019-01-13 10:49] VITALS: RESP 18
[2019-01-13 12:17] LABS: Glucose,Whole Blood 296 mg/dL (75-99)
--- NOTE | 2019-01-13 14:00 | MR ---
EXAMINATION TYPE: MR brain wo con DATE OF EXAM: 01/13/2019 COMPARISON: Prior MRI brain November 08, 2015. Most recent CT from 3 days ago. HISTORY: CVA TECHNIQUE: Multiplanar, multisequence imaging of the brain and brainstem is performed without IV cont rast. FINDINGS: Diffusion weighted images demonstrate there is increased signal on diffusion weighted images with dim inished signal on ADC mapping involving the posterior aspect of the right basal ganglia and posterior limb of the internal capsule that show T1 hypointensity and T2 hyperintensity consistent with evolvi ng acute infarct. Ventricular and sulcal prominence are redemonstrated. Old area of encephalomalacia involving the medi al inferior aspect of bilateral cerebellar hemispheres is redemonstrated with ex vacuo dilatation of fourth ventricle again seen. Old infarct left coronal radiata axial image 18 is redemonstrated. Scatt ered foci T2 hyperintensity throughout the deep and periventricular white matter again seen. Midline structures demonstrate normal morphology. The craniocervical junction appears within normal limits. Normal vascular flow voids are present. T2 hyperintense signal lateral aspect bilateral front al sinuses is redemonstrated with mild to moderate mucosal thickening involving the ethmoid sinuses b ilaterally. There is mild mucosal thickening involving small caliber bilateral maxillary sinuses. IMPRESSION: 1. New acute right-sided infarct involving the posterior aspect basal ganglia and posterior limb righ t internal capsule. 2. Background mild to moderate diffuse cerebral atrophy and chronic small vessel ischemic change with large infarct inferior medial bilateral cerebellar hemispheres and old left-sided acevedo radiata inf arct all redemonstrated.
[2019-01-13 15:03] VITALS: BMI 35.5
--- NOTE | 2019-01-13 15:26 | CDI ---
Documentation Clarification Form Date: 01/13/2019 2:30:46 PM From: Staci Scherer RN, CCDS Admit Date: 01/10/2019 10:39:00 AM Patient Name: Gray Burger Visit Number: [id number] Discharge Date: ATTENTION: The Clinical Documentation Specialists (CDI) and [facility] Coding Staff appreciate your assistance in clarifying documentation. Please respond to the clarification below the line at the bottom and electronically sign. The CDI & [facility] Coding staff will review the response and follow-up if needed. Please note: Queries are made part of the Legal Health Record. If you have any questions, please contact the author of this message via ITS. Dr. Royce Solomon/Dr. Julian The patient presented with concerned regarding increased weakness. Uncontrolled hypertension further clarification. History/Risk Factors: Hypertension CVA with chronic left-sided weakness, Diabetes mellitus, Clinical Indicators: 63 year-old male who complains of increased weakness. Neurology has ruled in an acute ischemic CVA with worsening of his baseline left hemiparesis Patient is still receiving Vasotec 1.25 IVP, last dose 11:30 on 01/13/19. Patient's sister has said that he is very noncompliant with his medication and does not take them. Vital signs on admission: 204/135, 101 18, 204/135 96 16, 184/133, 179/125 01/13/19: 179/102 91 18, 208/118 82 18, 179/102 , Lab findings: NA+, BUN 14, CR 0.71, GFR >90, CT Brain Old lacunar infarct left basal ganglion with ex vacuo effect on the lateral ventricle Brain MRI: New acute right-sided infarct involving the posterior aspect basal ganglia and posterior limb right internal capsule. Background mild to moderate diffuse cerebral atrophy and chronic small vessel ischemic changes with large infarct inferior medial bilateral cerebellar hemispheres and old left-side acevedo radiate infarct Treatment: Apresoline IV Q6 PRN Vasotec IV PRN Norvasc 10 mg PO daily Neurological assessment per orders In your professional opinion, in order to reflect this patient's severity of illness, can you please further clarify Hypertension? Hypertensive Urgency Hypertensive Emergency Other, please specify Unable to determine (Last Revision: November 2017) Hypertensive Urgency MTDD
[2019-01-13 17:21] LABS: Glucose,Whole Blood 232 mg/dL (75-99)
--- NOTE | 2019-01-13 18:36 | P.PN ---
Subjective Progress Note Date: 01/13/19 Patient denies any changes in his condition. Still with left hemiparetic, left arm more than leg. No new concerns. Objective - Vital Signs Vital signs: Vital Signs Temp 99.0 F 01/13/19 16:00 Pulse 89 01/13/19 16:00 Resp 18 01/13/19 16:00 BP 156/94 01/13/19 16:00 Pulse Ox 92 L 01/13/19 16:00 Intake & Output 01/12/19 01/13/19 01/13/19 18:59 06:59 18:59 Intake Total 1080 0 702 Output Total 400 700 800 Balance 680 -700 -98 Weight 94 kg Intake: Oral 1080 0 702 Output: Urine 400 700 800 Other: Voiding Method Urinal Urinal # Voids 1 - Exam Patient's mental status is normal. Cranial nerves significant for left facial weakness. On muscle strength testing, the strength is normal on the right side. On the left side, deltoid is 2, biceps 4-, triceps 5, director of marketing 3. Hip flexion 4-, ankle dorsiflexion 5. - Labs CBC & Chem 7: 01/13/19 06:23 01/13/19 06:23 Labs: Abnormal Lab Results - Last 24 Hours (Table) 01/11/19 01/12/19 01/13/19 Range/Units 05:31 20:59 06:23 Sodium 136 L (137-145) mmol/L Creatinine 0.58 L (0.66-1.25) mg/dL Glucose 202 H (74-99) mg/dL POC Glucose (mg/dL) 354 H (75-99) mg/dL Hemoglobin A1c 12.7 H (4.0-6.0) % 01/13/19 01/13/19 01/13/19 Range/Units 06:26 12:15 17:19 Sodium (137-145) mmol/L Creatinine (0.66-1.25) mg/dL Glucose (74-99) mg/dL POC Glucose (mg/dL) 192 H 296 H 232 H (75-99) mg/dL Hemoglobin A1c (4.0-6.0) % Assessment and Plan Assessment: * Acute right internal capsular (posterior limb), ischemic CVA, likely lacunar from small vessel disease. 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 * Diabetes, very poorly controlled, with A1c 12.7. * Hypertension * History of severe nosebleed in the past Plan: * Continue aspirin 325 mg daily. Would avoid dual antiplatelet medication because of his history of severe nosebleed. * MRI of the brain confirmed an acute stroke involving the posterior limb of right internal capsule, likely lacunar from small vessel disease * 2-D echo showed EF 55-60%. Interatrial and interventricular septum intact. Mitral valve leaflets are mildly thickened. Mild MR. No obvious embolic source found. * Hemoglobin A1c 12.7, consistent with poorly controlled diabetes. Optimize control of diabetes to target A1c < 7.0. * Fasting a.m. lipid panel showed cholesterol 142, LDL 86, HDL 35. Continue statins. * DVT prophylaxis. * PT OT. * Clear for discharge to rehab from neurology point.
[2019-01-13 21:10] LABS: Glucose,Whole Blood 273 mg/dL (75-99)
[2019-01-13] MEDS: INSULIN DETEMIR (LEVEMIR) 100 UNIT/ML SYR SQ SCH (21:37)
[2019-01-14] MEDS: HYDROcodone/APAP 5-325MG 1 EACH TAB PO PRN ×5 (01:32→21:47)
[2019-01-14] MEDS: SODIUM CHLORIDE 0.9% 1,000 ML IV SCH ×2 (04:02→08:45)
[2019-01-14 06:40] LABS: Glucose,Whole Blood 231 mg/dL (75-99)
[2019-01-14] MEDS: INSULIN ASPART (NovoLOG) 100 UNIT/ML VIAL SQ SCH ×5 (07:01→23:08)
[2019-01-14] MEDS: amLODIPine 10 MG TAB PO SCH (08:44)
[2019-01-14] MEDS: ATORVASTATIN 40 MG TAB PO SCH (08:44)
[2019-01-14] MEDS: LIDOCAINE 5% PATCH TOPICAL SCH (08:44)
[2019-01-14] MEDS: ASPIRIN 325 MG TAB PO SCH (08:44)
[2019-01-14] MEDS: LISINOPRIL 20 MG TAB PO SCH (08:44)
[2019-01-14 11:47] LABS: Glucose,Whole Blood 281 mg/dL (75-99)
[2019-01-14] MEDS: ENALAPRILAT 1.25 MG/ML 1 ML VIAL IVP PRN (11:53)
--- NOTE | 2019-01-14 13:36 | P.PN ---
Subjective Progress Note Date: 01/14/19 Patient denies any changes in his condition. Still with left hemiparetic, left arm more than leg, states he is getting better. No new concerns. Speech therapy working with the patient. Objective - Vital Signs Vital signs: Vital Signs Temp 97.8 F 01/14/19 12:00 Pulse 85 01/14/19 12:00 Resp 18 01/14/19 12:00 BP 159/94 01/14/19 13:00 Pulse Ox 93 L 01/14/19 12:00 Intake & Output 01/13/19 01/14/19 01/14/19 18:59 06:59 18:59 Intake Total 702 250 230 Output Total 800 600 300 Balance -98 -350 -70 Weight 94 kg 80.5 kg Intake: IV 10 0.9 10 Oral 702 240 230 Output: Urine 800 600 300 Other: Voiding Method Urinal Urinal Urinal # Voids 2 1 - Exam Patient's mental status is normal. Cranial nerves significant for left facial weakness. On muscle strength testing, the strength is normal on the right side. On the left side, deltoid is 3-, biceps 4+, triceps 5, cold rolling supervisor 4. Hip flexion 4, ankle dorsiflexion 5. - Labs CBC & Chem 7: 01/13/19 06:23 01/13/19 06:23 Labs: Abnormal Lab Results - Last 24 Hours (Table) 01/13/19 01/13/19 01/14/19 Range/Units 17:19 21:08 06:39 POC Glucose (mg/dL) 232 H 273 H 231 H (75-99) mg/dL 01/14/19 Range/Units 11:39 POC Glucose (mg/dL) 281 H (75-99) mg/dL Assessment and Plan Assessment: * Acute right internal capsular (posterior limb), ischemic CVA, likely lacunar from small vessel disease. 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 * Diabetes, very poorly controlled, with A1c 12.7. * Hypertension * History of severe nosebleed in the past Plan: * Continue aspirin 325 mg daily. Would avoid dual antiplatelet medication because of his history of severe nosebleed. * MRI of the brain confirmed an acute stroke involving the posterior limb of right internal capsule, likely lacunar from small vessel disease * 2-D echo showed EF 55-60%. Interatrial and interventricular septum intact. Mitral valve leaflets are mildly thickened. Mild MR. No obvious embolic source found. * Hemoglobin A1c 12.7, consistent with poorly controlled diabetes. Optimize control of diabetes to target A1c < 7.0. * Fasting a.m. lipid panel showed cholesterol 142, LDL 86, HDL 35. Continue statins. * DVT prophylaxis. * PT OT. * Clear for discharge to rehab from neurology point.
--- NOTE | 2019-01-14 15:50 | P.CONS ---
History of Present Illness - Chief Complaint Gait disturbance, left hemiparesthesias - History of Present Illness I had the opportunity see patient for inpatient rehab consultation with regard to gait disturbance. He was admitted to [facility] January 10 acute onset left-sided weakness. Seen by Dr. kumar for same. Head CT with old left basal ganglia infarct. Chest x-ray negative. Lumbar x-ray degenerative disc disease L5. Carotid Doppler with bilateral plaques. Brain MRI with new right basal ganglia and internal capsule infarcts and moderate diffuse cerebral atrophy. OT reports moderate assistance for upper dressing and maximal assistance for lower dressing, bathing, toileting and 2 person minimal assistance for functional mobility. PT reports two-person assistance for functional debility and gait 20 feet with roller walker. Previous functional history as elicited patient: 63-year-old right-handed white male who is single lives in a first-floor apartment alone. Is on disability related to previous stroke and patient claimed left hemiparesthesias. He describes independent with cooking, tub bath, gait with roller walker. Sister does the laundry and driving. Patient denies tobacco has rare drink. Dr. Paz is regular doctor. Family history both parents were smokers. Review of Systems Review of systems: ENT: Denies sneezes or discharge. Eyes: Denies discharge or photophobia. Cardiac: Denies chest pain or palpitation. Pulmonary: Denies cough or shortness of breath. Gastrointestinal: Denies nausea, emesis, constipation, diarrhea. Genitourinary: Denies discharge or frequency. Musculoskeletal: Denies muscle or bone aches. Neurologic: Left-sided weakness and numbness. Endocrine: Denies shakes or sweats. Oncology: Denies cancers. Dermatologic: Denies rash, itching, pruritus. ALLERGY/immunology: Denies sneezes, rashes. 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 History of Any Multi-Drug Resistant Organisms: None Reported Past Surgical History: Hernia Repair Additional Past Surgical History / Comment(s): mastoid repair on left ear Past Anesthesia/Blood Transfusion Reactions: No Reported Reaction Past Psychological History: Depression Smoking Status: Never smoker Past Alcohol Use History: None Reported Past Drug Use History: None Reported - Past Family History Father History Unknown: Yes Mother Family Medical History: Cancer, Myocardial Infarction (MT) Medications and Allergies Home Medications Medication Instructions Recorded Confirmed Type No Known Home Medications 01/10/19 01/10/19 History Allergies Allergy/AdvReac Type Severity Reaction Status Date / Time tramadol Allergy Itching Verified 01/10/19 08:01 Physical Exam Vitals: Vital Signs Temp Pulse Pulse Resp BP Pulse Ox 01/14/19 13:00 159/94 01/14/19 12:00 97.8 F 85 18 193/108 93 L 01/14/19 08:00 97.1 F L 88 18 140/89 92 L 01/14/19 04:00 98.0 F 80 18 174/101 96 01/13/19 23:38 97.9 F 93 93 18 144/98 95 01/13/19 21:30 172/107 01/13/19 20:05 97.6 F 97 17 185/109 94 L 01/13/19 16:00 99.0 F 89 18 156/94 92 L Intake and Output 01/14/19 01/14/19 01/14/19 06:59 14:59 22:59 Intake Total 250 230 Output Total 400 300 Balance -150 -70 Intake: IV 10 0.9 10 Oral 240 230 Output: Urine 400 300 Other: Voiding Method Urinal Urinal # Voids 2 1 Weight 80.5 kg Skin: Lesions right face and right hand. General: Medium build and comfortable appearance. Head: Normocephalic, atraumatic. Eyes: Symmetric. Pupils equal round. Ears: Symmetric. Hearing within normal limits. Mouth: Clear. Neck: Supple. Carotid without bruit. Cardiac: Regular rate and rhythm. Lungs: Clear anteriorly and posteriorly. Abdomen: Soft active nontender. Extremities: Normal tone. Neurological: Mental status: Alert, cooperative, pleasant. Cranial nerves: Symmetric facial tone and trapezius. Motor: Normal strength and isolation right side. Left arm and leg in synergy. Sensation: Intact right side and depressed left side. DTRs: Symmetric and equal throughout. Mobility: Sits with physical assistance. Results CBC & Chem 7: 01/13/19 06:23 01/13/19 06:23 Labs: Abnormal Lab Results - Last 24 Hours (Table) 01/13/19 01/13/19 01/14/19 Range/Units 17:19 21:08 06:39 POC Glucose (mg/dL) 232 H 273 H 231 H (75-99) mg/dL 01/14/19 Range/Units 11:39 POC Glucose (mg/dL) 281 H (75-99) mg/dL Assessment and Plan (1) CVA (cerebral vascular accident) Current Visit: Yes Status: Acute Code(s): I63.9 - CEREBRAL INFARCTION, UNSPECIFIED SNOMED Code(s): 758011077 Plan: Impression: 1. Gait disturbance. 2. Acute right basal ganglia internal capsule infarct resultant left hemiparesthesias. 3. Cellulitis right face and right hand. Right face with abscess. 4. Medically noncompliant. 5. Hypertension. 6. Chronic kidney disease. 7. Diabetes. 8. History of cancer. Comments and plan: At this time safety concerns noted. Patient has injury debility tolerate and benefit from therapies. Appears to have support from sister. At this time appears patient may benefit from inpatient rehab.
[2019-01-14 17:39] LABS: Glucose,Whole Blood 177 mg/dL (75-99)
[2019-01-14] MEDS ORDERED: INSULIN DETEMIR (LEVEMIR) 100 UNIT/ML SYR SQ SCH (21:00)
[2019-01-14 22:38] LABS: Glucose,Whole Blood 217 mg/dL (75-99)
--- NOTE | 2019-01-14 22:57 | P.PN ---
Subjective Progress Note Date: 01/13/19 Principal diagnosis: Acute CVA with left-sided weakness 63-year-old gentleman with a past medical history below comes in with above- mentioned complaint. The patient says that he was okay until weeks ago when he started having weakness which was worse than his usual weakness on the left side. He does not complain of any problems with his speech, but according to his sister was at the bedside and is also his caregiver, she thinks that his speech is little slurry when compared to the baseline. he does not complain of any lightheadedness or dizziness but says that his left side is more weaker than normal and he fell yesterday and again today as well. He otherwise does not complain of any chest pain or racing heart, no cough no shortness breath, no abdominal pain, nausea and vomiting, or diarrhea consultation, no tingling numbness in the extremities, no itch no rash 01/11/2019 Patient says that his left side is still weak. He is having pain in the back and the right paraspinal area in the lumbar region Does not complain of any chest pain racing heart No cough no shortness of breath 01/12/19 Left side still weak no chest pain, no racing heart BP high this morning 01/13/2019 Patient is still having left-sided weakness with slight improvement. MRI is being done today. No complains of chest pain or shortness of breath. No palpitations. Blood pressure is still uncontrolled. His B A1c is 12.7. Patient was started on Levemir 20 units at bedtime and continue with insulin sliding scale. Patient is still hyperglycemic. No nausea vomiting or abdominal pain. Neurology is on board. Current medications reviewed. Objective - Vital Signs Vital signs: Vital Signs Temp 98.5 F 01/13/19 12:00 Pulse 82 01/13/19 12:00 Resp 18 01/13/19 12:00 BP 179/102 01/13/19 13:00 Pulse Ox 92 L 01/13/19 12:00 Intake & Output 01/12/19 01/13/19 01/13/19 18:59 06:59 18:59 Intake Total 1080 0 480 Output Total 400 700 400 Balance 680 -700 80 Weight 94 kg Intake: Oral 1080 0 480 Output: Urine 400 700 400 Other: Voiding Method Urinal Urinal # Voids 1 - Exam On exam, alert and oriented x3. HEENT: Conjunctivae normal. eyes normal. He has scabs on the middle part of his left eye and he is On this left garrido left temporal area and the left scalp in the parietal area. Patient also has some dried crusted blood in the left nostril NECK: No JVD. No thyroid enlargement. No LNs CARDIOVASCULAR: S1, S2 muffled. No murmur RESPIRATION: Breath sounds diminished in the bases. No rhonchi or crackles. No bronchial breathing. ABDOMEN: Soft, nontender . No guarding. no masses palpable. No ascites, No hepatosplenomegaly.Bowel sounds heard. LEGS: No edema. no swelling NERVOUS SYSTEM: Patient has weakness in his left upper and lower extremity strength is about 2 x 5 in both upper and lower extremity. Patient is having slurry speech and slight facial droop on the left side. Joints: No active swelling. No inflammation. Lymphatic system. No LN neck axilla or groin. - Labs CBC & Chem 7: 01/13/19 06:23 01/13/19 06:23 Labs: Abnormal Lab Results - Last 24 Hours (Table) 01/11/19 01/12/19 01/12/19 Range/Units 05:31 16:54 20:59 Sodium (137-145) mmol/L Creatinine (0.66-1.25) mg/dL Glucose (74-99) mg/dL POC Glucose (mg/dL) 255 H 354 H (75-99) mg/dL Hemoglobin A1c 12.7 H (4.0-6.0) % 01/13/19 01/13/19 01/13/19 Range/Units 06:23 06:26 12:15 Sodium 136 L (137-145) mmol/L Creatinine 0.58 L (0.66-1.25) mg/dL Glucose 202 H (74-99) mg/dL POC Glucose (mg/dL) 192 H 296 H (75-99) mg/dL Hemoglobin A1c (4.0-6.0) % Assessment and Plan Assessment: - Left-sided weakness secondary to acute CVA - Non-compliance with medications - Back pain with paraspinal tenderness - History of CVA/TIA involving cerebellum and left thalamus in 2014 - Uncontrolled hypertension - Hyperglycemia with uncontrolled diabetes type 2. Currently not on any medications at home. A1c 12.7 - History of renal disease - History of cancer - DVT prophylaxis Plan: Patient will be continued on aspirin. Patient has been having symptoms for the past 1 week and was not a candidate for TPA. Neurology is following. MRI of the brain was done today. Patient will be converted on lisinopril and Norvasc. Continue with Levemir and insulin sliding scale. We'll add preprandial insulin as well. Continue with pain management with [place] and Flexeril. PTOT was consulted. Possible rehab transfer. Time with Patient: Greater than 30
--- NOTE | 2019-01-14 23:00 | P.PN ---
Subjective Progress Note Date: 01/14/19 Principal diagnosis: Acute CVA with left-sided weakness 63-year-old gentleman with a past medical history below comes in with above- mentioned complaint. The patient says that he was okay until weeks ago when he started having weakness which was worse than his usual weakness on the left side. He does not complain of any problems with his speech, but according to his sister was at the bedside and is also his caregiver, she thinks that his speech is little slurry when compared to the baseline. he does not complain of any lightheadedness or dizziness but says that his left side is more weaker than normal and he fell yesterday and again today as well. He otherwise does not complain of any chest pain or racing heart, no cough no shortness breath, no abdominal pain, nausea and vomiting, or diarrhea consultation, no tingling numbness in the extremities, no itch no rash 01/11/2019 Patient says that his left side is still weak. He is having pain in the back and the right paraspinal area in the lumbar region Does not complain of any chest pain racing heart No cough no shortness of breath 01/12/19 Left side still weak no chest pain, no racing heart BP high this morning 01/13/2019 Patient is still having left-sided weakness with slight improvement. MRI is being done today. No complains of chest pain or shortness of breath. No palpitations. Blood pressure is still uncontrolled. His B A1c is 12.7. Patient was started on Levemir 20 units at bedtime and continue with insulin sliding scale. Patient is still hyperglycemic. No nausea vomiting or abdominal pain. Neurology is on board. 01/14/2019 Patient is participant in physical therapy. Still having left-sided weakness left arm more than leg. MRI of the brain confirmed an acute stroke involving the posterior limb of right internal capsule, likely lacunar from small vessel disease. 2-D echo showed EF 55-60%. Interatrial and interventricular septum intact. Mitral valve leaflets are mildly thickened. Mild MR. No obvious embolic source found. No complaints of chest pain or shortness of breath. Blood pressure is still uncontrolled. No nausea vomiting or abdominal pain or diarrhea. Current medications reviewed. Objective - Vital Signs Vital signs: Vital Signs Temp 97.2 F L 01/14/19 16:00 Pulse 82 01/14/19 20:00 Resp 18 01/14/19 20:00 BP 139/87 01/14/19 16:00 Pulse Ox 93 L 01/14/19 16:00 Intake & Output 01/14/19 01/14/19 01/15/19 06:59 18:59 06:59 Intake Total 250 800 Output Total 600 1800 200 Balance -350 -1000 -200 Weight 80.5 kg Intake: IV 10 0.9 10 Oral 240 800 Output: Urine 600 1800 200 Other: Voiding Method Urinal Urinal Urinal # Voids 2 1 1 - Exam On exam, alert and oriented x3. HEENT: Conjunctivae normal. eyes normal. He has scabs on the middle part of his left eye and he is On this left garrido left temporal area and the left scalp in the parietal area. Patient also has some dried crusted blood in the left nostril NECK: No JVD. No thyroid enlargement. No LNs CARDIOVASCULAR: S1, S2 muffled. No murmur RESPIRATION: Breath sounds diminished in the bases. No rhonchi or crackles. No bronchial breathing. ABDOMEN: Soft, nontender . No guarding. no masses palpable. No ascites, No hepatosplenomegaly.Bowel sounds heard. LEGS: No edema. no swelling NERVOUS SYSTEM: Patient has weakness in his left upper and lower extremity strength is about 2 x 5 in both upper and lower extremity. Patient is having slurry speech and slight facial droop on the left side. Joints: No active swelling. No inflammation. Lymphatic system. No LN neck axilla or groin. - Labs CBC & Chem 7: 01/13/19 06:23 01/13/19 06:23 Labs: Abnormal Lab Results - Last 24 Hours (Table) 01/14/19 01/14/19 01/14/19 Range/Units 06:39 11:39 17:18 POC Glucose (mg/dL) 231 H 281 H 177 H (75-99) mg/dL 01/14/19 Range/Units 22:37 POC Glucose (mg/dL) 217 H (75-99) mg/dL Assessment and Plan Assessment: - Left-sided weakness secondary to acute CVA - Non-compliance with medications - Back pain with paraspinal tenderness - History of CVA/TIA involving cerebellum and left thalamus in 2014 - Uncontrolled hypertension - Hyperglycemia with uncontrolled diabetes type 2. Currently not on any medications at home. A1c 12.7 - History of renal disease - History of cancer - DVT prophylaxis Plan: Patient will be continued on aspirin 325 mg daily.. Patient has been having symptoms for the past 1 week and was not a candidate for TPA. Neurology is following. MRI of the brain was done today. Patient will be continued on lisinopril 40 mg daily and Norvasc will be changed to nifedipine XL.. Will limit IV blood pressure medications. Continue with Levemir and insulin sliding scale. We'll add preprandial insulin as well. Continue with pain management with [place] and Flexeril. PTOT was consulted. Possible rehab transfer tomorrow. Time with Patient: Greater than 30
[2019-01-15] MEDS: SODIUM CHLORIDE 0.9% 1,000 ML IV SCH ×2 (00:55→11:16)
[2019-01-15] MEDS: HYDROcodone/APAP 5-325MG 1 EACH TAB PO PRN ×4 (02:29→15:52)
[2019-01-15 06:41] LABS: Glucose,Whole Blood 230 mg/dL (75-99)
[2019-01-15] MEDS: INSULIN ASPART (NovoLOG) 100 UNIT/ML VIAL SQ SCH ×4 (06:53→13:11)
[2019-01-15 06:55] LABS: Basophils # (A) 0.1 k/uL (0-0.2); Basophils % (A) 1 %; Eosinophils # (A) 0.5 k/uL (0-0.7); Eosinophils % (A) 7 %; HCT 48.4 % (39.0-53.0); HGB 15.6 gm/dL (13.0-17.5); Lymphocytes % (A) 25 %; MCH 28.5 pg (25.0-35.0); MCHC 32.2 g/dL (31.0-37.0); MCV 88.4 fL (80.0-100.0); Monocytes # (A) 0.5 k/uL (0-1.0); Monocytes % (A) 6 %; Neutrophils # (A) 4.7 k/uL (1.3-7.7); Neutrophils % (A) 60 %; Platelet Count 222 k/uL (150-450); RBC 5.47 m/uL (4.30-5.90); RDW 14.6 % (11.5-15.5); WBC 7.9 k/uL (3.8-10.6)
[2019-01-15 07:23] LABS: Anion Gap 6 mmol/L; Blood Urea Nitrogen 22 mg/dL (9-20); Carbon Dioxide 29 mmol/L (22-30); Chloride 102 mmol/L (98-107); Glucose 251 mg/dL (74-99); Potassium 4.1 mmol/L (3.5-5.1); Sodium 137 mmol/L (137-145)
[2019-01-15] MEDS: ASPIRIN 325 MG TAB PO SCH (08:31)
[2019-01-15] MEDS: ATORVASTATIN 40 MG TAB PO SCH (08:31)
[2019-01-15] MEDS: LISINOPRIL 20 MG TAB PO SCH (08:31)
[2019-01-15] MEDS: LIDOCAINE 5% PATCH TOPICAL SCH (08:32)
--- NOTE | 2019-01-15 10:39 | ECHOF ---
Referral Reason:CVA MEASUREMENTS -------- HEIGHT: 162.6 cm WEIGHT: 90.7 kg BP: FINDINGS -------- Sinus rhythm. Limited Study with bubbles to rule out shunt. Contrast study was performed with 1 iv injection of 8 ccs of agitated normal saline at rest. Interatrial and interventricular septum intact. CONCLUSIONS -------- 1. Sinus rhythm. 2. Limited Study with bubbles to rule out shunt. 3. Contrast study was performed with 1 iv injection of 8 ccs of agitated normal saline at rest. 4. Interatrial and interventricular septum intact. SECOND FACING BASTER: Ashley Alanis RDCS
[2019-01-15 11:53] LABS: Glucose,Whole Blood 180 mg/dL (75-99)
--- NOTE | 2019-01-15 13:57 | DS ---
DISCHARGE SUMMARY DATE OF ADMISSION: 01/14/2019. DATE OF DISCHARGE: 01/15/2019 FINAL DIAGNOSES: 1. Acute right basal ganglia and right internal capsule, acute ischemic infarct in a right-handed patient. 2. Diabetes mellitus type 2, uncontrolled with hyperglycemia on insulin. 3. Essential hypertension. 4. Prior left-sided weakness from a prior stroke. 5. Lumbar osteoarthritis in the L5-S1 area. HOSPITAL COURSE: This patient presented with falling, increasing weakness on the left side. Patient has had a prior stroke. Patient apparently was not taking any medications prior to coming in. MRI of the brain did confirm a stroke in the right basal ganglia and internal capsule. Carotid Doppler did not show any critical stenosis, 2D echo showed LVH with no thrombus formation and there was no PFO. Patient's LDL is 86. Patient needs assistance. On examination, afebrile, pulse 89, respiration 18, blood pressure 136/74. Dysarthria is present. Power in the left arm is 3 to 4/5, power in the left leg is 4/5. No trouble swallowing. CONSULTATION: Dr. De Guzman from Neurology. Care was discussed in detail with the patient. Questions were answered. Also communicated with the social work nurse. DISCHARGE MEDICATIONS: 1. Aspirin 162 mg a day. 2. Lipitor 40 mg a day. 3. Flexeril 5 mg t.i.d. p.r.n. 4. NovoLog 7 units a.c. t.i.d. 5. Levemir 25 units subcu q.h.s. 6. 5% patch topical daily. 7. Zestril 40 mg q.h.s. 8. Procardia XL 60 mg p.o. daily. 9. Metformin 500 mg p.o. b.i.d. 10.Accu-Cheks q.a.c. and at bedtime. DIET: Diabetic diet. Discussion and discharge planning more than 35 minutes. DISPOSITION: [facility]. ACCEPTING PHYSICIAN: Dr. Jeovany Adrian from Rehab. AARON / KENYATTA: [id number] /
[2019-01-15 14:12] VITALS: BP 134/77; TEMP 97.8
[2019-01-15 14:15] VITALS: PULSE 93
== END 2019-01-15 16:16 | DRG 65 ==
LOC: EC 07:58 → 3SCARD 10:39
PROVIDERS: ADMIT Hospitalist; ATTEND Hospitalist
DX: I63.89 Other cerebral infarction (principal); I69.354 Hemiplegia and hemiparesis following cerebral infarction affecting left non-dominant side; L03.211 Cellulitis of face; L03.113 Cellulitis of right upper limb; L02.01 Cutaneous abscess of face; I12.9 Hypertensive chronic kidney disease with stage 1 through stage 4 chronic kidney disease, or unspecified chronic kidney disease; N18.9 Chronic kidney disease, unspecified; E11.22 Type 2 diabetes mellitus with diabetic chronic kidney disease; E11.65 Type 2 diabetes mellitus with hyperglycemia; F32.9 Major depressive disorder, single episode, unspecified; M47.817 Spondylosis without myelopathy or radiculopathy, lumbosacral region; M51.37 Other intervertebral disc degeneration, lumbosacral region; W19.XXXA Unspecified fall, initial encounter; Z79.4 Long term (current) use of insulin; Z79.899 Other long term (current) drug therapy; Z82.49 Family history of ischemic heart disease and other diseases of the circulatory system; T50.906A Underdosing of unspecified drugs, medicaments and biological substances, initial encounter; Z91.128 Patient's intentional underdosing of medication regimen for other reason; Z80.9 Family history of malignant neoplasm, unspecified; Z88.5 Allergy status to narcotic agent; Z85.9 Personal history of malignant neoplasm, unspecified; I16.0 Hypertensive urgency
CPT/HCPCS: 36415; 70450; 70551; 71046; 72100; 80048; 80053; 80061; 81003; 83036; 84484; 85025; 85027; 85610; 85730; 93005; 93306; 93308; 93880; 96374; 96375; 99285

== ENCOUNTER 2019-08-14 17:24 | Inpatient (IN) | payer MEDICARE, OTHER ==
[2019-08-14] MEDS ORDERED: cefTRIAXone IN SWFI 1,000 MG/10 ML SYRINGE IVP STA (17:55)
[2019-08-14] MEDS ORDERED: VANCOMYCIN IV PER PHARMACY 1 EACH MISC MISCELLANE PRN (17:55)
[2019-08-14] MEDS ORDERED: HYDROmorphone 1 MG/ML 1 ML SYRINGE IVP STA (17:56)
[2019-08-14] MEDS ORDERED: SODIUM CHLORIDE 0.9% 500 ML 500 ML IV ONE (17:56)
[2019-08-14] MEDS ORDERED: VANCOMYCIN 1,500 MG in SODIUM CHLORIDE 0.9% 250 ML IVPB STA (18:00)
[2019-08-14 18:29] LABS: Basophils # (A) 0.1 k/uL (0-0.2); Basophils % (A) 1 %; Eosinophils # (A) 0.4 k/uL (0-0.7); Eosinophils % (A) 3 %; HCT 46.9 % (39.0-53.0); HGB 15.6 gm/dL (13.0-17.5); Lymphocytes # (A) 1.9 k/uL (1.0-4.8); Lymphocytes % (A) 17 %; MCH 29.7 pg (25.0-35.0); MCHC 33.4 g/dL (31.0-37.0); MCV 88.9 fL (80.0-100.0); Mean Platelet Volume 8.5; Monocytes # (A) 0.7 k/uL (0-1.0); Monocytes % (A) 6 %; Neutrophils # (A) 7.8 k/uL (1.3-7.7); Neutrophils % (A) 71 %; Platelet Count 286 k/uL (150-450); RBC 5.27 m/uL (4.30-5.90); WBC 10.9 k/uL (3.8-10.6)
[2019-08-14 18:38] LABS: ALT 9 U/L (4-49); AST 18 U/L (17-59); African American GFR (CKD) >90 (>60 ml/min/1.73 sqM); Albumin 3.9 g/dL (3.5-5.0); Alkaline Phosphatase 166 U/L (38-126); Anion Gap 10 mmol/L; Blood Urea Nitrogen 14 mg/dL (9-20); Calcium 9.3 mg/dL (8.4-10.2); Carbon Dioxide 29 mmol/L (22-30); Chloride 97 mmol/L (98-107); Glucose 378 mg/dL (74-99); Non-African American GFR(CKD) >90 (>60 ml/min/1.73 sqM); Potassium 4.6 mmol/L (3.5-5.1); Sodium 136 mmol/L (137-145); Total Bilirubin 0.8 mg/dL (0.2-1.3); Total Protein 6.9 g/dL (6.3-8.2)
[2019-08-14] MEDS ORDERED: INSULIN REGULAR 100 UNIT/ML VIAL IV ONE (18:53)
[2019-08-14] MEDS ORDERED: NALOXONE 0.4 MG/ML 1 ML VIAL IV PRN (18:54)
[2019-08-14] MEDS ORDERED: ACETAMINOPHEN TAB 325 MG TAB PO PRN (18:54)
--- NOTE | 2019-08-14 18:57 | ED ---
General Adult HPI - General Chief complaint: Skin/Abscess/Foreign Body Stated complaint: lump on head Time Seen by Provider: 08/14/19 17:41 Source: patient, family, RN notes reviewed, old records reviewed Mode of arrival: wheelchair Limitations: no limitations - History of Present Illness Initial comments: 63-year-old male history of chronic facial infection presenting with worsening swelling and drainage from the left side of his nasal bridge and large area of pain and swelling on his scalp. This has developed over several days. He is a chronic infection he's followed with dermatology in the past. Not currently on any antibiotics. He is complaining of severe pain. He states that the facial infection has progressed over some time but his scalp pain and swelling is progressed over just several days. - Related Data Previous Rx's Medication Instructions Recorded Aspirin 162 mg PO DAILY #1 chewable 01/15/19 Atorvastatin [Lipitor] 40 mg PO DAILY tab 01/15/19 Cyclobenzaprine [Flexeril] 5 mg PO TID PRN tab 01/15/19 INSULIN ASPART (NovoLOG) [NovoLOG 7 unit SQ AC-TID vial 01/15/19 (formulary)] Insulin Detemir (Levemir) [Levemir] 25 unit SQ HS syr 01/15/19 Lidocaine 5% Patch [Lidoderm 5% 1 patch TOPICAL DAILY patch 01/15/19 Patch] Lisinopril [Zestril] 40 mg PO HS tab 01/15/19 NIFEdipine XL [Procardia XL] 60 mg PO DAILY tab.er.24 01/15/19 metFORMIN HCL [Glucophage] 500 mg PO BID #1 tab 01/15/19 Allergies Allergy/AdvReac Type Severity Reaction Status Date / Time tramadol Allergy Itching Verified 08/14/19 17:25 Review of Systems ROS Statement: Those systems with pertinent positive or pertinent negative responses have been documented in the HPI. ROS Other: All systems not noted in ROS Statement are negative. 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 History of Any Multi-Drug Resistant Organisms: None Reported Past Surgical History: Hernia Repair Additional Past Surgical History / Comment(s): mastoid repair on left ear Past Anesthesia/Blood Transfusion Reactions: No Reported Reaction Past Psychological History: Anxiety, Depression Smoking Status: Never smoker Past Alcohol Use History: None Reported Past Drug Use History: None Reported - Past Family History Father History Unknown: Yes Mother Family Medical History: Cancer, Myocardial Infarction (PR) General Exam Limitations: no limitations General appearance: alert, in no apparent distress Head exam: Present: atraumatic, other (4 cm x 4 cm abscess on the left parietal region just adjacent to the midline with the adjacent cellulitis.) Eye exam: Present: other ( Drainage at the medial canthus) Respiratory exam: Present: normal lung sounds bilaterally. Absent: respiratory distress Cardiovascular Exam: Present: regular rate, normal rhythm GI/Abdominal exam: Present: soft. Absent: distended, tenderness Extremities exam: Present: normal inspection, normal capillary refill. Absent: pedal edema Neurological exam: Present: alert, oriented X3 Course Vital Signs 08/14/19 08/14/19 17:26 18:47 Temperature 97.7 F Pulse Rate 89 83 Respiratory 18 18 Rate Blood Pressure 160/109 190/121 O2 Sat by Pulse 98 96 Oximetry Procedures - Incision & Drainage Consent Obtained: verbal consent Site: scalp I&D Cleaning Method: Chloroprep Sterile Field Used?: Yes Scalpel Used: #11 Needle Aspiration Performed?: No Irrigation Performed?: No I&D Drainage Obtained: Pus, Blood Packing: Iodoform Culture Obtained?: Yes Patient Tolerated Procedure: well Medical Decision Making - Medical Decision Making 63-year-old male with significant facial and scalp cellulitis and purulent drainage. He has a large abscess in the left parietal scalp. He center of this is fluctuant and nearly spontaneously draining. A smell neck is performed with an 11 blade and angela purulent material was obtained. This is sent for culture. Second culture is obtained from the spontaneously draining fluid from the medial canthus. Given the location of these abscesses and cellulitis I did initiate patient on IV antibiotics. I obtained blood cultures as well as cultures of purulent material. He started on ceftriaxone and vancomycin awaiting cultures. He's admitted with both ID and dermatology consult. Case is discussed with the admitting physician Dr. Mora. - Lab Data Result diagrams: 08/14/19 18:05 08/14/19 18:05 Lab Results 08/14/19 08/14/19 08/14/19 Range/Units 18:05 18:05 18:05 WBC 10.9 H (3.8-10.6) k/uL RBC 5.27 (4.30-5.90) m/uL Hgb 15.6 (13.0-17.5) gm/dL Hct 46.9 (39.0-53.0) % MCV 88.9 (80.0-100.0) fL MCH 29.7 (25.0-35.0) pg MCHC 33.4 (31.0-37.0) g/dL RDW 13.0 (11.5-15.5) % Plt Count 286 (150-450) k/uL Neutrophils % 71 % Lymphocytes % 17 % Monocytes % 6 % Eosinophils % 3 % Basophils % 1 % Neutrophils # 7.8 H (1.3-7.7) k/uL Lymphocytes # 1.9 (1.0-4.8) k/uL Monocytes # 0.7 (0-1.0) k/uL Eosinophils # 0.4 (0-0.7) k/uL Basophils # 0.1 (0-0.2) k/uL Sodium 136 L (137-145) mmol/L Potassium 4.6 (3.5-5.1) mmol/L Chloride 97 L (98-107) mmol/L Carbon Dioxide 29 (22-30) mmol/L Anion Gap 10 mmol/L BUN 14 (9-20) mg/dL Creatinine 0.88 (0.66-1.25) mg/dL Est GFR (CKD-EPI)AfAm >90 (>60 ml/min/1.73 sqM) Est GFR (CKD-EPI)NonAf >90 (>60 ml/min/1.73 sqM) Glucose 378 H (74-99) mg/dL Plasma Lactic Acid Sahok 2.3 H* (0.7-2.0) mmol/L Calcium 9.3 (8.4-10.2) mg/dL Total Bilirubin 0.8 (0.2-1.3) mg/dL AST 18 (17-59) U/L ALT 9 (4-49) U/L Alkaline Phosphatase 166 H (38-126) U/L Total Protein 6.9 (6.3-8.2) g/dL Albumin 3.9 (3.5-5.0) g/dL Disposition Clinical Impression: Diabetes mellitus type 2, uncontrolled, Facial cellulitis, Cellulitis and abscess of face Disposition: ADMITTED IP TO THIS [facility] Condition: Stable Is patient prescribed a controlled substance at d/c from ED?: No Referrals: Salomon Paz DO [Primary Care Provider] - 1-2 days Decision to Admit Reason: Admit from EC Decision Date: 08/14/19 Decision Time: 18:57
[2019-08-14] MEDS: SODIUM CHLORIDE 0.9% 1,000 ML IV SCH (19:29)
[2019-08-14] MEDS: PREGABALIN 75 MG CAP PO SCH (22:26)
[2019-08-14] MEDS: INSULIN DETEMIR (LEVEMIR) 100 UNIT/ML SYR SQ SCH (22:28)
[2019-08-14] MEDS: HYDROmorphone 0.5 MG/0.5 ML SYRINGE IVP PRN (22:30)
[2019-08-14] MEDS: traZODone HCL 50 MG TAB PO SCH (22:35)
[2019-08-14] MEDS: rOPINIRole HCL 4 MG TABLET PO SCH (22:35)
[2019-08-15] MEDS: HYDROmorphone 0.5 MG/0.5 ML SYRINGE IVP PRN ×6 (01:57→21:32)
[2019-08-15] MEDS: VANCOMYCIN 1,250 MG in SODIUM CHLORIDE 0.9% 250 ML IVPB SCH ×2 (05:25→18:00)
[2019-08-15 07:14] LABS: Glucose,Whole Blood 200 mg/dL (75-99)
[2019-08-15] MEDS: FUROSEMIDE 20 MG TAB PO SCH (07:39)
[2019-08-15] MEDS: PANTOPRAZOLE 40 MG TABLET PO SCH (07:39)
[2019-08-15] MEDS: HYDROCHLOROTHIAZIDE 25 MG TAB PO SCH (07:39)
[2019-08-15] MEDS: ATORVASTATIN 40 MG TAB PO SCH (07:39)
[2019-08-15] MEDS: CARVEDILOL 12.5 MG TAB PO SCH ×2 (07:39→17:36)
[2019-08-15] MEDS: ASPIRIN 81 MG PO SCH (07:39)
[2019-08-15] MEDS: INSULIN ASPART (NovoLOG) 100 UNIT/ML VIAL SQ SCH ×4 (07:39→20:29)
[2019-08-15] MEDS: HEPARIN SODIUM,PORCINE 5,000 UNIT/ML 1 ML VIAL SQ SCH ×2 (07:39→20:20)
[2019-08-15] MEDS: LISINOPRIL 20 MG TAB PO SCH (07:39)
[2019-08-15] MEDS: SODIUM CHLORIDE 0.9% 1,000 ML IV SCH ×2 (07:40→20:17)
[2019-08-15] MEDS: PREGABALIN 75 MG CAP PO SCH ×2 (07:46→20:18)
[2019-08-15] MEDS ORDERED: PANTOPRAZOLE 40 MG TABLET PO SCH (09:00)
--- NOTE | 2019-08-15 10:09 | HP ---
HISTORY AND PHYSICAL DATE OF SERVICE: 08/14/2019 CHIEF COMPLAINT: Scalp infection and abscess. HISTORY OF PRESENT ILLNESS: This 64-year-old gentleman with a past medical history of multiple medical illnesses including CVA, TIA, diabetes mellitus, hypertension, history of DJD, history of anxiety, depression, being followed by Dr. Salomon Paz in the outpatient setting is complaining of worsening scalp swelling and drainage of the left side of the nasal bridge and scalp and also the left side of the face on multiple areas. The patient has been dealing with this symptom for the last 3 years since the patient's stroke according to him. The most recent episode is flared up for the last 1 week. The patient has also seen Dermatology with Dr. Lozoya. Currently the patient is not taking antibiotic. The patient was evaluated and the patient was found to have a fluctuant mass which spontaneously draining, a small neck riky has been performed with an 11 blade in the emergency room and the patient had a dressing was applied. The patient admitted for further evaluation treatment. Patient also had features of sepsis with elevated lactic acid 2.3, present on admission with diabetes mellitus, uncontrolled with glucose of 378. Hemoglobin A1c is unknown. There is no history of fever, rigors or chills. No history of headache, loss of consciousness, seizures at this time. White count is elevated. PAST MEDICAL HISTORY: History of CVA, TIA, diabetes mellitus, hypertension, renal disease, history of stroke, nephrolithiasis. MEDICATIONS: Home medications are: 1. Trazodone 50 mg p.o. q.h.s. 2. Requip 4 mg q.h.s. 3. Lyrica 150 mg p.o. b.i.d. 4. Omeprazole 20 mg p.o. daily. 5. Lisinopril 40 mg p.o. daily. 6. Humalog QV pen. 7. Lantus 25 units subcu q.h.s. 8. HydroDIURIL 25 mg p.o. daily. 9. [place] 10 mg b.i.d. p.r.n. 10.Lasix 20 mg p.o. daily. 11.Coreg 25 mg p.o. b.i.d. 12.Lipitor 40 mg p.o. daily. 13.Aspirin 81 mg p.o. daily. ALLERGIES: ULTRAM. FAMILY HISTORY: History of myocardial infarction, ETOH, cancer in the family. SOCIAL HISTORY: History of alcohol, THC. No history of smoking. REVIEW OF SYSTEMS: ENT: As mentioned earlier. Cardiovascular system: No angina or palpitations. RESPIRATION: No cough or hemoptysis. GI no nausea or vomiting. no dysuria or retention. NERVOUS SYSTEM: No numbness or weakness. ALLERGY/IMMUNOLOGY: No asthma or hayfever. MUSCULOSKELETAL as mentioned earlier. HEMATOLOGY/ONCOLOGY: No history of anemia. ENDOCRINE: Diabetes. CONSTITUTIONAL: As mentioned earlier. DERMATOLOGY mentioned earlier. RHEUMATOLOGY negative. PSYCHIATRY as mentioned earlier. PHYSICAL EXAMINATION: The patient is alert and oriented times three. Pulse is 82. Blood pressure 169/98, respiration 20, temperature 97.4, pulse ox 97% on room air. Conjunctivae are normal. Otherwise, the scalp abscess status post incision and drainage. Multiple areas of infection abscess cellulitis on the left side of the face also present. Neck is no jugular venous distention. No carotid bruit. No lymph node enlargement. Cardiovascular system: S1, S2 muffled. No S3, no S4. Respiratory: Breath sounds diminished in the bases. Bilateral scattered rhonchi and crackles. ABDOMEN: Soft, nontender. No mass palpable. LEGS: No edema. No swelling. NERVOUS SYSTEM: Higher functions as mentioned earlier. Moves all 4 limbs. No focal motor-sensory deficits. Lymphatics: No lymph nodes palpable in the neck, axillae or groin. SKIN: No ulcers, rashes or bleeding. JOINTS: No active deforming arthropathy. LABS: WBC 10.9, hemoglobin 15.6, sodium 136, potassium 4.6, plasma lactic acid 2.3, glucose 378. ASSESSMENT: 1. Acute abscess of the left side of the scalp with sepsis, present on admission with failure of outpatient treatment. 2. Multiple skin abscess infection cellulitis of the left side of the face. 3. Diabetes mellitus type 2 uncontrolled. 4. Elevated plasma lactic acid. 5. Hyponatremia. 6. Elevated WBC. 7. History of cerebrovascular accident, transient ischemic attack. 8. Hypertension. 9. History of renal disease. 10.History of urinary frequency. 11.History of cerebrovascular accident on the left side. 12.History of mastoid repair. 13.History of hernia repair. 14.History of anxiety, depression. RECOMMENDATIONS AND DISCUSSION: This 64-year-old gentleman who presented with multiple complex medical issues, we will monitor the patient closely. I would recommend broad-spectrum IV antibiotics. Otherwise, infectious disease evaluation. Follow the cultures. Also recommend DVT prophylaxis. Resume the home medications. Guarded prognosis because of multiple complex medical issues. Further recommendations to follow. See orders for details. The patient most likely will need midline or PICC line and prolonged antibiotics also because of the patient's prolonged history of infections. The patient recently had a complete neurology workup. I recommend a bone scan to rule out the possibility of any scalp osteomyelitis also. MMODL / IJN: [id number] /
[2019-08-15 11:46] LABS: Glucose,Whole Blood 206 mg/dL (75-99)
--- NOTE | 2019-08-15 11:51 | NM ---
EXAMINATION TYPE: NM bone 3 phase DATE OF EXAM: 08/15/2019 COMPARISON: NONE HISTORY: Left scalp pain and swelling assess for osteomyelitis. Triple phase bone scintigraphy was performed following the injection of 23.8 mCi Tc 99m MDP. Immedia te images and 3 hours post injection images acquired. Imaging is performed of the head and neck regio n. FINDINGS: Blood flow images along with soft tissue phase images show increased radiotracer uptake over the left higher scalp. Delayed phase images show some persistent aild asymmetric uptake at this level difficu lt to localize on oblique and lateral images but likely corresponds to higher area. IMPRESSION: 3 phase increased radiotracer uptake could reflect acute osteomyelitis involving the high calvarium just left of midline.
[2019-08-15 17:36] LABS: Glucose,Whole Blood 246 mg/dL (75-99)
[2019-08-15] MEDS: ALPRAZolam 0.25 MG TAB PO PRN (17:36)
--- NOTE | 2019-08-15 17:37 | CT ---
EXAMINATION TYPE: CT facial bones w con DATE OF EXAM: 08/15/2019 COMPARISON: August 19, 2015 HISTORY: non-healing wounds to face and head CT DLP: 760.8 mGycm Automated exposure control for dose reduction was used. CONTRAST: Performed with IV Contrast, patient injected with 100 mL of Isovue 300. The mandibular ring is intact. Temporomandibular joints appear normal. Zygomatic arches are intact. T here is nasal bone fracture and with deviation to the right side. Unchanged. There is mucosal thicken ing in the ethmoid and frontal sinuses. There is mucosal thickening and underdevelopment of the maxil matt sinuses. The maxilla is intact. There is no evidence of a blowout fracture. Orbital margins are intact. There is no evidence of retro-orbital mass. There is subcutaneous edema over the left frontal bone. I see no focal bone destruction. There is soft tissue swelling anterior to the left maxilla. I see no pathologic enhancement. IMPRESSION: Soft tissue swelling. No evidence of osteomyelitis. Old nasal bone fracture. Maxillary and ethmoid an d frontal sinusitis. Left maxillary soft tissue swelling improved slightly compared to old exam. Left frontal bone soft tissue swelling new compared to old exam.
[2019-08-15] MEDS ORDERED: RX INFO: IV CONTRAST WAS GIVEN 1 EACH MISC MISCELLANE PRN (19:24)
[2019-08-15] MEDS ORDERED: PIPERACILLIN-TAZOBACTAM 3.375 GM in SODIUM CHLORIDE 0.9% 100 ML IVPB SCH (20:00)
[2019-08-15] MEDS: traZODone HCL 50 MG TAB PO SCH (20:19)
[2019-08-15] MEDS: rOPINIRole HCL 4 MG TABLET PO SCH (20:19)
[2019-08-15] MEDS: HYDROcodone/APAP 10-325MG 1 EACH TAB PO PRN (20:20)
--- NOTE | 2019-08-15 20:24 | CT ---
EXAMINATION TYPE: CT brain w con DATE OF EXAM: 08/15/2019 COMPARISON: 01/10/2019 HISTORY: Osteomyelitis. CT DLP: 760.8 mGycm Automated exposure control for dose reduction was used. CONTRAST: Performed with IV Contrast, patient injected with 100ml mL of Isovue 300. There is 13 mm hypodense area in the genu of the left internal capsule consistent with old lacunar in farct unchanged. There is some enlargement of the frontal horn left lateral ventricle. There is no mi dline shift. There is no sign of intracranial hemorrhage. There is no pathologic enhancement. There i s large area of hypodensity in the inferior aspect of the left cerebellar hemisphere consistent with an old infarct. Unchanged. There is parietal scalp soft tissue swelling that measures up to 1.9 cm in thickness. I see no focal bone destruction. Sella turcica appears normal. There is no pathologic intracranial enhancement. IMPRESSION: Old lacunar infarct left internal capsule unchanged. Large old left cerebellar hemisphere infarct unchanged. No acute intracranial abnormality. Left maxillary sinusitis unchanged. Left parietal scalp soft tissue swelling is new compared to old e xam.
[2019-08-15] MEDS: INSULIN DETEMIR (LEVEMIR) 100 UNIT/ML SYR SQ SCH (20:29)
[2019-08-15 20:48] LABS: Glucose,Whole Blood 227 mg/dL (75-99)
--- NOTE | 2019-08-15 22:14 | PN ---
PROGRESS NOTE DATE OF SERVICE: 08/15/2019 This 64-year-old gentleman admitted with significant multiple infected abscesses on the scalp area and also face is being closely monitored at this time. A bone scan showed acute osteomyelitis involving the high calvaria on the left of the midline. A face CT scan showed soft tissue swelling. No evidence of osteomyelitis was noted. Old nasal bone fractures also noted. The patient is being closely monitored. The cultures are pending at this time. PAST MEDICAL HISTORY: Reviewed. REVIEW OF SYSTEMS: ENT as mentioned earlier. Cardiovascular: No angina or palpitations. Respirations: No cough. GI: As mentioned earlier. no dysuria. NERVOUS SYSTEM: No numbness or weakness. CURRENT MEDICATIONS ARE: Reviewed and include: 1. Tylenol q.6. 2. [place] 10 mg b.i.d. p.r.n. 3. Xanax 0.5 t.i.d. 4. Aspirin 81 mg. 5. Lipitor 40 mg. 6. Coreg 25 mg p.o. b.i.d. 7. Rocephin 1 g daily. 8. Lasix. 9. Heparin. 10.Adderall. 11.Dilaudid. 12.Levemir. 13.Vancomycin. 14.Narcan. 15.Protonix. 16.Lyrica. 17.Requip. 18.Desyrel. PHYSICAL EXAM: Patient is alert, oriented x3. Pulse 61, blood pressure 136/60, respiration 18, temp 98.4, pulse ox 98% on room air. HEENT is conjunctivae normal. Neck: No JVD. CARDIOVASCULAR: S1, S2 muffled. RESPIRATORY: Breath sounds diminished in the bases. Scattered rhonchi and crackles. ABDOMEN: Soft, nontender. LEGS: No edema. No swelling. NERVOUS SYSTEM: No focal weakness. Examination of the head significant deflection swelling present in the right scalp. Otherwise, multiple infection in the face also on the right is also present. LABS: WBC 10.9 and sodium 136 and glucose 378. ASSESSMENT: 1. Acute abscess of the left side of the scalp with sepsis with possible underlying osteomyelitis with failure of outpatient treatment. 2. Multiple skin abscess with surrounding cellulitis left side of the face. 3. Diabetes mellitus type 2 uncontrolled with hyperglycemia. 4. Elevated plasma lactic acid. 5. Hyponatremia. 6. Elevated WBC. 7. History of cerebrovascular accident/transient ischemic attack. 8. Hypertension. 9. History of renal disease. 10.History of urinary frequency. 11.History of cerebrovascular incident on the left side. 12.History of mastoid repair. 13.History of hernia repair. 14.History of anxiety, depression. RECOMMENDATIONS AND DISCUSSION: In this 64-year-old gentleman who presented with multiple complex medical issues, we will monitor the patient closely, continue the current medications, management and continue the symptomatic treatment. Cotninue broad-spectrum IV antibiotics. Infectious disease evaluation. Also obtain CT scan of the brain and as well as surgical evaluation also otherwise. Prognosis guarded because of multiple complex medical issues. Further recommendations to follow. A copy of this dictation being forwarded to Dr. Paz. AARON / ELIECERN: [id number] / AYO
[2019-08-16] MEDS ORDERED: VANCOMYCIN TROUGH DUE 1 EACH MISC MISCELLANE ONE (05:00)
[2019-08-16] MEDS: HYDROcodone/APAP 10-325MG 1 EACH TAB PO PRN ×2 (05:18→17:31)
[2019-08-16] MEDS: VANCOMYCIN 1,250 MG in SODIUM CHLORIDE 0.9% 250 ML IVPB SCH ×2 (05:22→17:33)
[2019-08-16 05:25] LABS: Basophils # (A) 0.1 k/uL (0-0.2); Basophils % (A) 1 %; Eosinophils # (A) 0.4 k/uL (0-0.7); Eosinophils % (A) 5 %; HCT 41.3 % (39.0-53.0); HGB 13.4 gm/dL (13.0-17.5); Lymphocytes # (A) 2.4 k/uL (1.0-4.8); Lymphocytes % (A) 26 %; MCHC 32.4 g/dL (31.0-37.0); MCV 89.6 fL (80.0-100.0); Mean Platelet Volume 8.6; Monocytes # (A) 0.6 k/uL (0-1.0); Monocytes % (A) 7 %; Neutrophils # (A) 5.4 k/uL (1.3-7.7); Neutrophils % (A) 60 %; Platelet Count 242 k/uL (150-450)
[2019-08-16 05:44] LABS: Calcium 8.6 mg/dL (8.4-10.2); Potassium 3.9 mmol/L (3.5-5.1)
[2019-08-16] MEDS: HYDROmorphone 0.5 MG/0.5 ML SYRINGE IVP PRN ×4 (06:18→22:01)
[2019-08-16 07:07] LABS: Glucose,Whole Blood 185 mg/dL (75-99)
[2019-08-16] MEDS: LISINOPRIL 20 MG TAB PO SCH (08:12)
[2019-08-16] MEDS: INSULIN ASPART (NovoLOG) 100 UNIT/ML VIAL SQ SCH ×4 (08:13→21:30)
[2019-08-16] MEDS: FUROSEMIDE 20 MG TAB PO SCH (08:13)
[2019-08-16] MEDS: CARVEDILOL 12.5 MG TAB PO SCH ×2 (08:13→17:31)
[2019-08-16] MEDS: ASPIRIN 81 MG PO SCH (08:13)
[2019-08-16] MEDS: PANTOPRAZOLE 40 MG TABLET PO SCH (08:13)
[2019-08-16] MEDS: HYDROCHLOROTHIAZIDE 25 MG TAB PO SCH (08:13)
[2019-08-16] MEDS: ATORVASTATIN 40 MG TAB PO SCH (08:13)
[2019-08-16] MEDS: HEPARIN SODIUM,PORCINE 5,000 UNIT/ML 1 ML VIAL SQ SCH ×2 (08:13→21:24)
[2019-08-16] MEDS: ALPRAZolam 0.25 MG TAB PO PRN (08:16)
[2019-08-16] MEDS: PREGABALIN 75 MG CAP PO SCH ×2 (08:16→21:22)
--- NOTE | 2019-08-16 08:30 | CONS ---
CONSULTATION DATE OF SERVICE: 08/15/2019. REASON FOR FOLLOWUP: Scalp abscess and cellulitis. HISTORY OF PRESENT ILLNESS: The patient is a 63-year-old male with past medical history significant for chronic nonhealing wounds to the facial area especially the left nasal fold in this patient with previous biopsy positive for squamous cell carcinoma and has been evaluated and treated in the outpatient setting by Dermatology. The patient currently did have 3 lesion on the left side of the face which has been chronic for three or four years and apparently he follows with his primary care physician for local care of the same. The patient now has developed a painful swelling on his scalp area that apparently dependent started about 3-4 days ago. The area has become more swollen and red and painful. The patient described the pain to be throbbing, almost 10 out of 10 with no radiation. The patient was evaluated by the ER physician and did have I and D of the area. Culture has been obtained. The patient has been admitted to the hospital. He was started on Zosyn and vancomycin. Infectious Disease was consulted for further recommendations regarding antibiotic therapy. REVIEW OF SYSTEMS: Constitutionally positive for weakness and chills. Eyes no complaint. ENT no complaint. Respiratory no complaint. Cardiovascular no complaint. Genitourinary: No complaint. Gastrointestinal: No complaint. Musculoskeletal as per HPI. Integumentary as per HPI. PSYCHOLOGICAL: No complaint. Endocrine no complaint. Neurologic no complaint. PAST MEDICAL HISTORY: Diabetes mellitus, hypertension, CVA, TIA, squamous cell carcinoma of the skin. The patient wound has cellulitis. PAST SURGICAL HISTORY: Right mastoid repair of left ear, hernia repair. SOCIAL HISTORY: Denies smoking, drinking or drug use. FAMILY HISTORY: Mother history of cancer and [place]. ALLERGIES: TO TRAMADOL. MEDICATIONS: Include the patient is currently on vancomycin 1250 mg q 24. He is on Desyrel, Requip, Lyrica, Zosyn, Protonix, Narcan, Zestril, Levemir, NovoLog, Dilaudid, hydrochlorothiazide, heparin, Lasix, Coreg, Lipitor and aspirin. PHYSICAL EXAMINATION: Blood pressure is 136/66, pulse of 61, temperature 98.4. He is 98% on room air. General description is a middle-aged male lying in bed in no distress. No tachypnea or accessory muscles of respiration use. HEENT: Shows slight pallor. No scleral icterus. The patient did have superficial ulceration to the left facial area with no slough tissue or surrounding redness or drainage. Examination of the scalp area shows a swelling. The area has been I&D with packing with no purulent drainage. NECK: Trachea central. No thyromegaly. LUNGS unlabored breathing. Clear to auscultation anteriorly. No wheeze or crackle. Heart S1-S2 regular rate and rhythm. ABDOMEN: Soft, no tenderness. No guarding or rigidity. EXTREMITIES: No edema of the feet. SKIN EXAMINATION: No rash or mass palpable. Neurological: Patient is awake, alert, oriented times three. Mood and affect normal. LABS: Hemoglobin 15.1, white count 10.9, BUN of 14, creatinine 0.88. Lactic acid 2.3. Liver enzymes are normal. blood culture so far negative. DIAGNOSTIC IMPRESSION AND PLAN: 1. Patient with scalp area abscess and cellulitis in this patient who is status post I and D of the area in the ER, likely a skin abscess with culture positive for Staph aureus likely MRSA. 2. The patient did have a nonhealing wound to the facial area in this patient with previous history of squamous cell carcinoma and follows with Dermatology. PLAN: 1. the patient continue vancomycin pharmacy to dose to target 15, discontinue Zosyn as no gram negative has been grown. 2. We will follow up on clinical condition and culture to further adjust medication if needed. Thank you for this consultation. We will follow this patient along with you. MMODL / IJN: [id number] / MTDD
[2019-08-16 11:27] LABS: Glucose,Whole Blood 156 mg/dL (75-99)
[2019-08-16] MEDS: SODIUM CHLORIDE 0.9% 1,000 ML IV SCH (12:02)
--- NOTE | 2019-08-16 13:20 | P.GSCN ---
History of Present Illness Consult date: 08/16/19 History of present illness: CHIEF COMPLAINT: Scalp and facial abscess HISTORY OF PRESENT ILLNESS: The patient is a 64-year-old male admitted secondary to both scalp and facial abscess. Hospitalization is now for the last 2 days. He reports that his scalp abscess developed in the last 7 days with tenderness. Blood sugars on admission was over 300s. "I am going home today," as he is eating lunch. His scalp pain has moderately improved. He report chronic history of multiple facial lesions over 3-4 years with questionable history of squamous cell carcinoma. "They tell me cancer 1 minutes and then I don't have cancer." He has had multiple resections along the left face including left nares. He sees a supervisor [employer] who manages his multiple lesions along the space. General surgery is consulted for evaluation of the scalp abscess. At this time, patient does not see any additional surgical intervention. PAST MEDICAL HISTORY: See list. PAST SURGICAL HISTORY: See list. MEDICATIONS: See list. ALLERGIES: See list. SOCIAL HISTORY: See list. FAMILY HISTORY: See list. REVIEW OF ORGAN SYSTEMS: CONSTITUTIONAL: No fevers or chills. EYES: Denies any trouble with vision. No glasses. HEENT: No difficulties with hearing. No nosebleeds. No difficulty swallowing. RESPIRATORY: Denies pneumonia. Denies any troubles with breathing or dyspnea on exertion. CARDIOVASCULAR: Denies any chest pain, palpitations, or recent heart attacks. Has hypertension. Has congestive heart failure GASTROINTESTINAL: Denies fatty food intolerance. Denies change in bowel habits and gas bloat. Has gastroesophageal reflux disease GENITOURINARY: Denies any blood in urine or increased urinary frequency. NEUROLOGICAL: Has numbness or tingling along the distal extremities. No seizure disorders or headaches. Has restless leg syndrome. Past history of CVA and TIA MUSCULOSKELETAL: Has back pain, stiffness or joint arthritis. Has chronic pain SKIN: Past skin cancer with squamous cell cancer and nonhealing wound. Has multiple skin abscesses. See his supervisor [employer] PSYCHIATRIC: Denies current depression or suicidal thoughts. ENDOCRINE: Denies current thyroid disorders. Has blood sugar glucose intolerance. Insulin-dependent HEME/LYMPHATIC: Denies any lumps and bumps around the neck. No recent deep venous thrombosis. ALLERGY/IMMUNOLOGY: No immunoglobulin therapy. No immune deficiencies. BREAST: Denies current breast lumps, pain or nipple discharge. PHYSICAL EXAM: VITALS: Reviewed CONSTITUTIONAL: Well developed and in no acute distress. EYES: Conjuctivae without sclera icterus. Pupils are equally round and reactive to light. Extraocular movements grossly intact. HEAD, EARS, NOSE, THROAT: Moist buccal mucosa. Hears conversational speech. No nasal drainage. Poor dentition. Left-sided space with multiple superficial abrasions. Subtotal resection of left nares identified with a skin bridge at the left medial canthus. A 4 cm draining abscess at the left posterior parietal scalp NECK: Supple. No JV distention. RESPIRATORY: Non-labored respirations and equal bilateral excursions. No gross wheezes. CARDIOVASCULAR: Regular rate and rhythm. Extremities without moderate edema. Palpable 2+ radial pulses. ABDOMEN: Soft. Non-tender. Nondistended. LYMPH: No neck lymphadenopathy. No axillary lymphadenopathy. MUSCULOSKELETAL: Nail and fingers with good capillary refill. SKIN: Warm and well perfused with good skin turgor. NEUROLOGIC: Cranial nerves I through XII grossly intact. Sensation upper and extremities intact. No focal or lateralizing signs. PSYCH: Appropriate affect. Alert and oriented to person, place and time. Displays appropriate insight. CLINCAL LABS: Reviewed. WBC elevated at 10.6 on admission now normal IMAGING: Independently reviewed of facial CT demonstrating a fluid collection along the left scalp without air-fluid collection RADIOLOGY: Report reviewed of brain and facial CT confirming left maxillary sinusitis and fluid collection as above. Prior history of lacunar infarct consistent with previous stroke. ASSESSMENT: 1. Scalp abscess 2. Left maxillary sinusitis 3. Previous history of stroke 4. Squamous cell carcinoma 5. Chronic nonhealing wound PLAN: 1. Infection is improving with administration of IV antibiotics 2. Patient has uncontrolled hyperglycemia. Recommend strict glycemic control 3. Patient does not any additional surgical intervention. In the interim, conservative management with warm compress to allow our for drainage. Thank you for this kind consultation. 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 History of Any Multi-Drug Resistant Organisms: None Reported Past Surgical History: Hernia Repair Additional Past Surgical History / Comment(s): mastoid repair on left ear at 18 years old Past Anesthesia/Blood Transfusion Reactions: No Reported Reaction Past Psychological History: Anxiety, Depression Smoking Status: Never smoker Past Alcohol Use History: None Reported Past Drug Use History: None Reported - Past Family History Father History Unknown: Yes Additional Family Medical History / Comment(s): ETOH Mother Family Medical History: Cancer, Myocardial Infarction ([place]) Medications and Allergies Home Medications Medication Instructions Recorded Confirmed Type Atorvastatin [Lipitor] 40 mg PO DAILY tab 01/15/19 08/14/19 Rx Aspirin 81 mg PO DAILY 08/14/19 08/14/19 History Carvedilol [Coreg] 25 mg PO BID 08/14/19 08/14/19 History Furosemide [Lasix] 20 mg PO DAILY 08/14/19 08/14/19 History HYDROcodone/APAP 10-325MG [[place] 1 tab PO BID PRN 08/14/19 08/14/19 History 10-325] Hydrochlorothiazide [Hydrodiuril] 25 mg PO DAILY 08/14/19 08/14/19 History Insulin Glargine,Hum.rec.anlog 25 unit SQ HS 08/14/19 08/14/19 History [Lantus Solostar] Insulin Lispro [humaLOG Kwikpen] See Protocol SQ AC-TID 08/14/19 08/14/19 History Lisinopril 40 mg PO DAILY 08/14/19 08/14/19 History Omeprazole 20 mg PO DAILY 08/14/19 08/14/19 History Pregabalin [Lyrica] 150 mg PO BID 08/14/19 08/14/19 History rOPINIRole HCL [Requip] 4 mg PO HS 08/14/19 08/14/19 History traZODone HCL 50 mg PO HS 08/14/19 08/14/19 History Allergies Allergy/AdvReac Type Severity Reaction Status Date / Time tramadol Allergy Itching Verified 08/14/19 20:18 Surgical - Exam Vital Signs Temp Pulse Resp BP Pulse Ox 97.7 F 89 18 160/109 98 08/14/19 17:26 08/14/19 17:26 08/14/19 17:26 08/14/19 17:26 08/14/19 17:26 Results - Labs 08/16/19 05:05 08/16/19 05:05 Abnormal Lab Results - Last 24 Hours (Table) 08/15/19 08/15/19 08/15/19 Range/Units 11:44 17:34 20:26 Sodium (137-145) mmol/L Chloride (98-107) mmol/L Carbon Dioxide (22-30) mmol/L Glucose (74-99) mg/dL POC Glucose (mg/dL) 206 H 246 H 227 H (75-99) mg/dL 08/16/19 08/16/19 08/16/19 Range/Units 05:05 07:04 11:24 Sodium 133 L (137-145) mmol/L Chloride 97 L (98-107) mmol/L Carbon Dioxide 31 H (22-30) mmol/L Glucose 181 H (74-99) mg/dL POC Glucose (mg/dL) 185 H 156 H (75-99) mg/dL Microbiology - Last 24 Hours (Table) 08/14/19 18:05 Blood Culture Gram Stain - Preliminary Blood 08/14/19 18:05 Gram Stain - Preliminary Head Wound Culture - Preliminary Presumptive Staph aureus 08/14/19 18:05 Blood Culture - Final Blood Diabetes panel 08/16/19 Range/Units 05:05 Sodium 133 L (137-145) mmol/L Potassium 3.9 (3.5-5.1) mmol/L Chloride 97 L (98-107) mmol/L Carbon Dioxide 31 H (22-30) mmol/L BUN 17 (9-20) mg/dL Creatinine 1.18 (0.66-1.25) mg/dL Glucose 181 H (74-99) mg/dL Calcium 8.6 (8.4-10.2) mg/dL Calcium panel 08/16/19 Range/Units 05:05 Calcium 8.6 (8.4-10.2) mg/dL Pituitary panel 08/16/19 Range/Units 05:05 Sodium 133 L (137-145) mmol/L Potassium 3.9 (3.5-5.1) mmol/L Chloride 97 L (98-107) mmol/L Carbon Dioxide 31 H (22-30) mmol/L BUN 17 (9-20) mg/dL Creatinine 1.18 (0.66-1.25) mg/dL Glucose 181 H (74-99) mg/dL Calcium 8.6 (8.4-10.2) mg/dL Adrenal panel 08/16/19 Range/Units 05:05 Sodium 133 L (137-145) mmol/L Potassium 3.9 (3.5-5.1) mmol/L Chloride 97 L (98-107) mmol/L Carbon Dioxide 31 H (22-30) mmol/L BUN 17 (9-20) mg/dL Creatinine 1.18 (0.66-1.25) mg/dL Glucose 181 H (74-99) mg/dL Calcium 8.6 (8.4-10.2) mg/dL Assessment and Plan (1) Abscess or cellulitis of scalp Current Visit: Yes Status: Acute Code(s): L03.811 - CELLULITIS OF HEAD [ANY PART, EXCEPT FACE] SNOMED Code(s): 49254114 (2) History of stroke Current Visit: Yes Status: Acute Code(s): Z86.73 - PRSNL HX OF TIA (TIA), AND CEREB INFRC W/O RESID DEFICITS SNOMED Code(s): 334952403 (3) Uncontrolled diabetes mellitus Current Visit: Yes Status: Acute Code(s): E11.65 - TYPE 2 DIABETES MELLITUS WITH HYPERGLYCEMIA SNOMED Code(s): 71110788 (4) Cellulitis and abscess of face Current Visit: Yes Status: Acute Code(s): L03.211 - CELLULITIS OF FACE SNOMED Code(s): 706514893 (5) Diabetes mellitus type 2, uncontrolled Current Visit: Yes Status: Acute Code(s): E11.65 - TYPE 2 DIABETES MELLITUS WITH HYPERGLYCEMIA SNOMED Code(s): 548179446 (6) Hyperglycemia Current Visit: No Status: Acute Code(s): R73.9 - HYPERGLYCEMIA, UNSPECIFIED SNOMED Code(s): 85233624 (7) Squamous cell cancer of skin of [place] Current Visit: Yes Status: Acute Code(s): C44.321 - SQUAMOUS CELL CARCINOMA OF SKIN OF NOSE SNOMED Code(s): 997592091
[2019-08-16] MEDS ORDERED: HALOPERIDOL LACTATE 5 MG/ML 1 ML VIAL IM PRN (14:13)
--- NOTE | 2019-08-16 16:57 | PN ---
PROGRESS NOTE DATE OF SERVICE: 08/16/2019. REASON FOR FOLLOW UP: Scalp abscess with secondary bacteremia. INTERVAL HISTORY: The patient is currently afebrile. The patient seemed to be upset , dressed up and wants to leave AMA. As per patient, nothing has been done here, he acknowledged the fact that he is getting antibiotics. The patient said he will go home and when he gets worse, he will come back. Currently insisting on going home and did not provide any history. No nausea, vomiting or diarrhea reported. PHYSICAL EXAMINATION: Blood pressure 117/75 with a pulse of 69, temperature 98.9. He is 96% on room air. General description is a middle-aged male lying in bed in no distress. HEENT examination: Scalp wound is currently dressed up. No drainage was noticed. The patient refused the rest of the examination. LABS: Hemoglobin is 13.4, white count 9.0, BUN of 17, creatinine 1.18. Vancomycin trough is 16.1. DIAGNOSTIC IMPRESSION AND PLAN: Patient with Staphylococcus aureus bacteremia likely from the scalp abscess that has been drained in the ER. The patient apparently refused evaluation by the General surgery before the drainage of the area. With secondary bacteremia, patient has been advised to stay in the hospital as the patient needs to have first clearance of his bacteremia and management for outpatient antibiotic therapy. The patient has been very abusive and yelling and wanted to be out of the hospital. Blood cultures will be repeated. Vancomycin continued while waiting for final ID. Sister did come to the desk and she was updated about his care. MMODL / IJN: [id number] / MTDD
[2019-08-16 17:11] LABS: Glucose,Whole Blood 331 mg/dL (75-99)
[2019-08-16] MEDS: cloNIDine HCL 0.1 MG TAB PO SCH (17:31)
[2019-08-16 18:55] LABS: Appearance,Urine Clear (Clear); Bilirubin,Urine Negative (Negative); Blood,Urine Trace (Negative); Color,Urine Light Yellow; Glucose,Urine (UA) 4+ (Negative); Ketones,Urine 1+ (Negative); Leukocyte Esterase,Urine Negative (Negative); Mucus,Urine Rare /hpf; Nitrite,Urine Negative (Negative); Protein,Urine Negative (Negative); RBC,Urine <1 /hpf (0-5); Specific Gravity,Urine 1.013 (1.001-1.035); Squamous Epithelial Cell,Urine <1 /hpf (0-4); Urobilinogen,Urine <2.0 mg/dL (<2.0); WBC,Urine <1 /hpf (0-5)
[2019-08-16 18:58] LABS: Amphetamine Screen,Urine Not Detected (NotDetected); Barbiturate Screen,Urine Not Detected (NotDetected); Benzodiazepines Screen,Urine Detected (NotDetected); Cocaine Screen,Urine Detected (NotDetected); Methadone Screen, Urine Not Detected (NotDetected); Opiate Screen,Urine Detected (NotDetected); Oxycodone Screen, Urine Not Detected (NotDetected); Phencyclidine Screen,Urine Not Detected (NotDetected); Tricyclic Antidepressant,Urine Not Detected (NotDetected); Urn Cannabinoid Scrn Detected (NotDetected)
--- NOTE | 2019-08-16 19:32 | PN ---
PROGRESS NOTE DATE OF SERVICE: 08/16/2019 This 64 -year-old gentleman admitted with multiple abscesses on the left side of the face and as well as surrounding cellulitis and also had significant infection of the scalp area. The evaluation showed possible osteomyelitis. A CT scan of the brain did not show any intracranial extension, but the patient is on IV antibiotics but however the patient wanted to leave the hospital AGAINST MEDICAL ADVICE today but the family came, intervened and the patient is currently petitioned at this time. The patient appears to be slightly confused and the patient also had some gaps in the thought process. The patient also had a history of cocaine abuse according to the family. The patient being closely monitored at this time. The patient is currently willing to stay after being petitioned by the patient's sister. PAST MEDICAL HISTORY: Reviewed. REVIEW OF SYSTEM: ENT as mentioned earlier. Cardiovascular: No angina or palpitations. RESPIRATIONS: As mentioned earlier. GASTROINTESTINAL: As mentioned earlier. no dysuria. Nervous system: No numbness or weakness. CURRENT MEDICATIONS: Reviewed and include: 1. Tylenol p.r.n. 2. [place] 10 mg b.i.d. p.r.n. 3. Xanax 0.5 t.i.d. 4. Aspirin 81 mg. 5. Lipitor 40 mg. 6. Coreg 25 mg p.o. b.i.d. 7. Lasix 20 mg daily. 8. Haldol p.r.n. 9. Heparin 5000 subcu b.i.d. 10.HydroDIURIL 25 mg p.o. daily. 11.Dilaudid p.r.n. 12.Levemir 25 units subcu q.h.s. 13.Zestril 40 mg p.o. daily. 14.Naloxone. 15.Protonix 40 mg p.o. daily. 16.Lyrica 150 mg p.o. b.i.d. 17.Requip. 18.Desyrel. 19.Vancomycin 1.25 mg b.i.d. PHYSICAL EXAMINATION: Patient is alert, oriented x3. Pulse is 69. Blood pressure 117/75, respiration 20, temperature 98.9, pulse ox 98% on room air. HEENT: Conjunctivae normal. NECK: No JVD. CARDIOVASCULAR: S1, S2 muffled. RESPIRATIONS: Breath sounds diminished in the bases. A few scattered rhonchi and crackles. ABDOMEN: Soft, nontender. No mass palpable. LEGS: No edema. No swelling. NERVOUS SYSTEM: Higher functions as mentioned earlier. Moves all 4 limbs. No focal motor or sensory deficits. Lymphatics: No lymph nodes palpable in the neck, axillae or groin. Otherwise examination of the skin, significant infection, cellulitis of the left side of the face and the scalp area abscess also present. LABS: CBC within normal limits. Sodium 133 and glucose is 181. ASSESSMENT: 1. Acute abscess on the left side of the scalp with sepsis with possible underlying osteomyelitis with failure of outpatient treatment. 2. Multiple skin abscesses with surrounding cellulitis, left side of the face. 3. Diabetes type 2, uncontrolled with hyperglycemia. 4. Elevated plasma lactic acid. 5. Hyponatremia. 6. Increased WBC. 7. History of cerebrovascular accident, transient ischemic attack. 8. Hypertension. 9. History of renal disease. 10.History of urinary frequency. 11.History of cerebrovascular incident of the left side history. 12.History of mastoid repair. 13.History of hernia repair. 14.History of anxiety and depression, rule out bipolar schizoaffective disorder or psychosis. 15.History of noncompliance. 16.History of substance abuse including possibly cocaine. RECOMMENDATIONS AND DISCUSSION: This 64-year-old gentleman who presented with multiple complex medical issues, at this time, I recommend to continue the current medications, symptomatic treatment. Otherwise, I would recommend urine drug screen at this time. Otherwise Psychiatry has been consulted. The patient has been petitioned. Continue the IV antibiotics. Monitor blood sugars closely. Continue with DVT prophylaxis. The patient might need prolonged antibiotic with outpatient treatment. The prognosis guarded because of multiple complex medical issues. Further recommendations to follow. See orders for details. Discussed at length with the family, who understands and agrees. MMODL / IJN: [id number] /
[2019-08-16] MEDS: rOPINIRole HCL 4 MG TABLET PO SCH (21:22)
[2019-08-16] MEDS: traZODone HCL 50 MG TAB PO SCH (21:22)
[2019-08-16] MEDS: INSULIN DETEMIR (LEVEMIR) 100 UNIT/ML SYR SQ SCH (21:24)
[2019-08-16 21:44] LABS: Glucose,Whole Blood 179 mg/dL (75-99)
[2019-08-17] MEDS: cloNIDine HCL 0.1 MG TAB PO SCH ×3 (00:32→20:30)
[2019-08-17] MEDS: HYDROmorphone 0.5 MG/0.5 ML SYRINGE IVP PRN ×6 (05:11→23:43)
[2019-08-17] MEDS: VANCOMYCIN 1,250 MG in SODIUM CHLORIDE 0.9% 250 ML IVPB SCH (05:13)
[2019-08-17 07:13] LABS: Glucose,Whole Blood 215 mg/dL (75-99)
[2019-08-17 09:25] LABS: Basophils # (A) 0.1 k/uL (0-0.2); Basophils % (A) 1 %; Eosinophils # (A) 0.5 k/uL (0-0.7); Eosinophils % (A) 5 %; Lymphocytes # (A) 2.2 k/uL (1.0-4.8); Lymphocytes % (A) 23 %; MCH 29.8 pg (25.0-35.0); MCHC 33.3 g/dL (31.0-37.0); MCV 89.3 fL (80.0-100.0); Mean Platelet Volume 8.5; Monocytes # (A) 0.6 k/uL (0-1.0); Monocytes % (A) 6 %; Neutrophils # (A) 6.2 k/uL (1.3-7.7); Neutrophils % (A) 65 %; Platelet Count 267 k/uL (150-450); RBC 4.37 m/uL (4.30-5.90); RDW 12.8 % (11.5-15.5); WBC 9.6 k/uL (3.8-10.6)
[2019-08-17 09:28] LABS: African American GFR (CKD) >90 (>60 ml/min/1.73 sqM); Anion Gap 7 mmol/L; Blood Urea Nitrogen 18 mg/dL (9-20); Calcium 8.4 mg/dL (8.4-10.2); Carbon Dioxide 28 mmol/L (22-30); Chloride 99 mmol/L (98-107); Glucose 246 mg/dL (74-99); Non-African American GFR(CKD) 84 (>60 ml/min/1.73 sqM); Potassium 4.1 mmol/L (3.5-5.1); Sodium 134 mmol/L (137-145)
[2019-08-17] MEDS: ASPIRIN 81 MG PO SCH (09:31)
[2019-08-17] MEDS: FOLIC ACID 1 MG TAB PO SCH (09:31)
[2019-08-17] MEDS: THIAMINE 100 MG TAB PO SCH (09:31)
[2019-08-17] MEDS: PREGABALIN 75 MG CAP PO SCH ×2 (09:32→20:31)
[2019-08-17] MEDS: HYDROCHLOROTHIAZIDE 25 MG TAB PO SCH (09:32)
[2019-08-17] MEDS: ATORVASTATIN 40 MG TAB PO SCH (09:32)
[2019-08-17] MEDS: HYDROcodone/APAP 10-325MG 1 EACH TAB PO PRN (09:32)
[2019-08-17] MEDS: FUROSEMIDE 20 MG TAB PO SCH (09:32)
[2019-08-17] MEDS: PANTOPRAZOLE 40 MG TABLET PO SCH (09:32)
[2019-08-17] MEDS: CARVEDILOL 12.5 MG TAB PO SCH ×2 (09:32→17:16)
[2019-08-17] MEDS: MULTIVITAMINS, THERA 1 EACH TAB PO SCH (09:32)
[2019-08-17] MEDS: LISINOPRIL 20 MG TAB PO SCH (09:32)
[2019-08-17] MEDS: INSULIN ASPART (NovoLOG) 100 UNIT/ML VIAL SQ SCH ×4 (09:33→20:31)
[2019-08-17] MEDS: HEPARIN SODIUM,PORCINE 5,000 UNIT/ML 1 ML VIAL SQ SCH ×2 (09:33→20:31)
--- NOTE | 2019-08-17 10:57 | P.PN ---
<Nicole Lozano A - Last Filed: 08/17/19 10:57> Subjective Progress Note Date: 08/17/19 CHIEF COMPLAINT: scalp abscess HISTORY OF PRESENT ILLNESS: Patient examined this morning at the bedside. She reports pain to scalp and is requesting IV pain medications. He reports drainage overnight from site. WBC 9.6. Vital signs stable. He is afebrile. PHYSICAL EXAM: VITAL SIGNS: Currently stable. GENERAL: Well-developed in no acute distress. HEENT: Moist buccal mucosa. Hears conversational speech. No nasal drainage. Poor dentition. Left-side of face with multiple superficial abrasions. Subtotal resection of left nares identified with a skin bridge at the left medial canthus. A 4 cm draining abscess at the left posterior parietal scalp NECK: Supple without lymphadenopathy. CHEST: Non-labored respirations and equal bilateral excursions. CARDIOVASCULAR: Regular rate with regular rhythm. Palpable 2+ radial pulses. ABDOMEN: Soft. Nondistended. Nontender. MUSCULOSKELETAL: No clubbing, cyanosis or edema. NEUROLOGIC: No focal or lateralizing signs. Cranial nerves II through XII grossly intact. PSYCH: Appropriate affect. Alert and oriented to person, place and time. SKIN: Well perfused. Good skin turgor. ASSESSMENT: 1. Scalp abscess 2. Left maxillary sinusitis 3. Previous history of stroke 4. Squamous cell carcinoma 5. Chronic nonhealing wound PLAN: Continue IV antibiotics Continue warm compresses to allow for drainage Recommend tight glucose control No surgical intervention recommended. We will sign off. Please re-consult if needed Nurse practitioner note has been reviewed by physician. Signing provider agrees with the documented findings, assessment, and plan of care. Objective - Vital Signs Vital signs: Vital Signs Temp 98.4 F 08/17/19 04:40 Pulse 65 08/17/19 04:40 Resp 20 08/17/19 04:40 BP 147/82 08/17/19 04:40 Pulse Ox 92 L 08/17/19 04:40 Intake & Output 08/16/19 08/17/19 08/17/19 18:59 06:59 18:59 Intake Total 780 600 Output Total 300 Balance 480 600 Intake: Oral 780 600 Output: Urine 300 Other: Voiding Method Urinal # Voids 2 2 # Bowel Movements 0 - Labs CBC & Chem 7: 08/17/19 08:37 08/17/19 08:37 Labs: Abnormal Lab Results - Last 24 Hours (Table) 08/16/19 08/16/19 08/16/19 Range/Units 11:24 17:08 18:18 Sodium (137-145) mmol/L Glucose (74-99) mg/dL POC Glucose (mg/dL) 156 H 331 H (75-99) mg/dL Urine Glucose (UA) 4+ H (Negative) Urine Ketones 1+ H (Negative) Urine Blood Trace H (Negative) Urine Mucus Rare H (None) /hpf Urine Opiates Screen Detected H (NotDetected) U Benzodiazepines Scrn Detected H (NotDetected) Urine Cocaine Screen Detected H (NotDetected) U Marijuana (THC) Screen Detected H (NotDetected) 08/16/19 08/17/19 08/17/19 Range/Units 21:19 07:11 08:37 Sodium 134 L (137-145) mmol/L Glucose 246 H (74-99) mg/dL POC Glucose (mg/dL) 179 H 215 H (75-99) mg/dL Urine Glucose (UA) (Negative) Urine Ketones (Negative) Urine Blood (Negative) Urine Mucus (None) /hpf Urine Opiates Screen (NotDetected) U Benzodiazepines Scrn (NotDetected) Urine Cocaine Screen (NotDetected) U Marijuana (THC) Screen (NotDetected) Microbiology - Last 24 Hours (Table) 08/15/19 19:07 Blood Culture - Preliminary Blood No Growth after 24 hours 08/14/19 18:05 Gram Stain - Final Head Wound Culture - Final Staphylococcus aureus 08/14/19 18:05 Blood Culture Gram Stain - Preliminary Blood Blood Culture - Preliminary Staphylococcus aureus <Yoli Guzman N - Last Filed: 08/17/19 18:26> Subjective As above. Recommend conservative management with warm compress as he has moderate drainage and not seeking surgical intervention. Objective - Vital Signs Vital signs: Vital Signs Temp 97.8 F 08/17/19 13:24 Pulse 63 08/17/19 13:24 Resp 18 08/17/19 16:00 BP 131/84 08/17/19 13:24 Pulse Ox 95 08/17/19 13:24 Intake & Output 08/16/19 08/17/19 08/17/19 18:59 06:59 18:59 Intake Total 780 600 540 Output Total 300 Balance 480 600 540 Intake: Oral 780 600 540 Output: Urine 300 Other: Voiding Method Urinal # Voids 2 2 3 # Bowel Movements 0 - Labs CBC & Chem 7: 08/17/19 08:37 08/17/19 08:37 Labs: Abnormal Lab Results - Last 24 Hours (Table) 08/16/19 08/16/19 08/17/19 Range/Units 18:18 21:19 07:11 Sodium (137-145) mmol/L Glucose (74-99) mg/dL POC Glucose (mg/dL) 179 H 215 H (75-99) mg/dL Urine Glucose (UA) 4+ H (Negative) Urine Ketones 1+ H (Negative) Urine Blood Trace H (Negative) Urine Mucus Rare H (None) /hpf Urine Opiates Screen Detected H (NotDetected) U Benzodiazepines Scrn Detected H (NotDetected) Urine Cocaine Screen Detected H (NotDetected) U Marijuana (THC) Screen Detected H (NotDetected) 08/17/19 08/17/19 08/17/19 Range/Units 08:37 11:50 16:55 Sodium 134 L (137-145) mmol/L Glucose 246 H (74-99) mg/dL POC Glucose (mg/dL) 242 H 167 H (75-99) mg/dL Urine Glucose (UA) (Negative) Urine Ketones (Negative) Urine Blood (Negative) Urine Mucus (None) /hpf Urine Opiates Screen (NotDetected) U Benzodiazepines Scrn (NotDetected) Urine Cocaine Screen (NotDetected) U Marijuana (THC) Screen (NotDetected) Microbiology - Last 24 Hours (Table) 08/14/19 18:05 Blood Culture Gram Stain - Final Blood Blood Culture - Final Staphylococcus aureus 08/14/19 18:00 Gram Stain - Preliminary Eye - Left Eye Culture - Preliminary Gram Neg Bacilli 08/15/19 19:07 Blood Culture - Preliminary Blood No Growth after 24 hours 08/14/19 18:05 Gram Stain - Final Head Wound Culture - Final Staphylococcus aureus Assessment and Plan (1) Abscess or cellulitis of scalp Current Visit: Yes Status: Acute Code(s): L03.811 - CELLULITIS OF HEAD [ANY PART, EXCEPT FACE] SNOMED Code(s): 01230751 (2) History of stroke Current Visit: Yes Status: Acute Code(s): Z86.73 - PRSNL HX OF TIA (TIA), AND CEREB INFRC W/O RESID DEFICITS SNOMED Code(s): 213795560 (3) Uncontrolled diabetes mellitus Current Visit: Yes Status: Acute Code(s): E11.65 - TYPE 2 DIABETES MELLITUS WITH HYPERGLYCEMIA SNOMED Code(s): 87879107 (4) Cellulitis and abscess of face Current Visit: Yes Status: Acute Code(s): L03.211 - CELLULITIS OF FACE SNOMED Code(s): 122032493 (5) Diabetes mellitus type 2, uncontrolled Current Visit: Yes Status: Acute Code(s): E11.65 - TYPE 2 DIABETES MELLITUS WITH HYPERGLYCEMIA SNOMED Code(s): 566200175 (6) Hyperglycemia Current Visit: No Status: Acute Code(s): R73.9 - HYPERGLYCEMIA, UNSPECIFIED SNOMED Code(s): 72709854 (7) Squamous cell cancer of skin of [place] Current Visit: Yes Status: Acute Code(s): C44.321 - SQUAMOUS CELL CARCINOMA OF SKIN OF NOSE SNOMED Code(s): 230440069
[2019-08-17 11:52] LABS: Glucose,Whole Blood 242 mg/dL (75-99)
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
[2019-08-17 16:57] LABS: Glucose,Whole Blood 167 mg/dL (75-99)
--- NOTE | 2019-08-17 19:17 | PN ---
PROGRESS NOTE DATE OF SERVICE: 08/17/2019 REASON FOR FOLLOWUP: Scalp abscess MSSA with MSSA bacteremia. INTERVAL HISTORY: The patient is currently afebrile. The patient is more pleasant and apologetic today compared to yesterday. The patient's pain to the scalp area has improved. Denies having any chest pain, shortness of breath or cough. No abdominal pain or diarrhea. PHYSICAL EXAMINATION: Blood pressure 131/84 with a pulse of 63, temperature 97.8. He is 95% on room air. General description is a middle-aged male lying in bed in no distress. HEENT EXAMINATION: Scalp area swelling and redness have decreased. LUNGS: Unlabored breathing. Clear to auscultation anteriorly. HEART: S1, S2. Regular rate and rhythm. ABDOMEN: Soft. No tenderness. EXTREMITIES: No edema of the feet. LABS: Hemoglobin is 13, white count 9.6, creatinine 0.96. Blood and local cultures have been finalized with MSSA. DIAGNOSTIC IMPRESSION AND PLAN: Patient with methicillin-susceptible Staphylococcus aeruginosa bacteremia secondary to scalp abscess, status post drainage in the ER. The patient's antibiotic was switched over to cefazolin 2 grams q.8 hours. The patient will need midline for outpatient IV antibiotic once his blood cultures become negative. Continue with supportive care. MMODL / IJN: [id number] /
[2019-08-17 20:19] LABS: Glucose,Whole Blood 156 mg/dL (75-99)
[2019-08-17] MEDS: traZODone HCL 50 MG TAB PO SCH (20:31)
[2019-08-17] MEDS: rOPINIRole HCL 4 MG TABLET PO SCH (20:32)
[2019-08-17] MEDS ORDERED: INSULIN DETEMIR (LEVEMIR) 100 UNIT/ML SYR SQ SCH (21:00)
--- NOTE | 2019-08-18 01:53 | PN ---
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 The patient was combative and wanted to go AMA. Patient was petitioned by the family members. The patient apparently has a history of substance abuse, including cocaine. Psychiatry saw the patient and recommended to continue the current medications, continue symptomatic treatment. Multiple consultants are following the patient closely, as mentioned earlier. The wound culture and blood culture show MSSA, indicative of sepsis. Past medical history reviewed. REVIEW OF SYSTEMS: CARDIOVASCULAR SYSTEM: No angina, palpitations. RESPIRATORY SYSTEM: No cough, hemoptysis. GI: As mentioned earlier. : No dysuria or retention. NERVOUS SYSTEM: No numbness, weakness. CURRENT MEDICATIONS: Reviewed. They include: 1. Tylenol 650 q.6 p.r.n. 2. [place] 10 mg b.i.d. p.r.n. 3. Xanax 0.25 t.i.d. 4. Aspirin 81 mg daily. 5. Lipitor 40 mg daily. 6. Coreg 25 mg p.o. b.i.d. 7. Cefazolin. 8. Clonidine 9. Folic acid. 10.Lasix. 11.Heparin. Doses are reviewed. PHYSICAL EXAMINATION: Patient is alert, oriented x3. Pulse 64, blood pressure 117/80, respiration 18, temperature 97.9, pulse ox 94% on room air. HEENT: Conjunctivae normal. NECK: No jugular venous distention. CARDIOVASCULAR SYSTEM: S1, S2 muffled. RESPIRATORY SYSTEM: Breath sounds diminished at the bases. A few scattered rhonchi. ABDOMEN: Soft, non-tender. LEGS: No edema. No swelling. NERVOUS SYSTEM: No focal deficit. EXAMINATION OF THE SKULL: Significant ulcerations, abscess present. LABS: Glucose 242 and 167 and 156. ASSESSMENT: 1. 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 2. Multiple skin abscesses and surrounding cellulitis of the left side of the face. 3. Diabetes mellitus, type 2, uncontrolled with hyperglycemia. 4. Change in mental status, possibly acute metabolic encephalopathy, possibly secondary to drug withdrawal. 5. Elevated plasma lactic acid. 6. Hyponatremia. 7. Increased white count. 8. History of polysubstance abuse, including cocaine and tetrahydrocannabinol. 9. History of cerebrovascular accident, transient ischemic attack. 10.Hypertension. 11.History of renal disease. 12.History urinary frequency. 13.Cerebrovascular accident of the left side of the body. 14.History of mastoid repair. 15.History of hernia repair. 16.History of anxiety; rule out depression. 17.History of noncompliance. RECOMMENDATIONS AND DISCUSSION: In this 64-year-old gentleman who presented with multiple medical issues, at this time I recommend to continue current medications, continue the broad-spectrum IV antibiotics. I would recommend PICC line insertion and outpatient antibiotics. ECF rehab is a possibility. Discussed with the protective services case worker and administrator social welfare to involve the family in the discussions, who are very much involved in the care of this patient. The patient has a strong history of noncompliance and a history of substance abuse and other psychiatric issues. Currently the patient is much better and pleasant and even apologizing at this time. Continue to monitor. Further recommendations to follow. AARON / KENYATTA: [id number] / AYO
[2019-08-18 07:22] LABS: Glucose,Whole Blood 317 mg/dL (75-99)
[2019-08-18] MEDS: ALPRAZolam 0.25 MG TAB PO PRN (08:12)
[2019-08-18] MEDS: HEPARIN SODIUM,PORCINE 5,000 UNIT/ML 1 ML VIAL SQ SCH (08:12)
[2019-08-18] MEDS: LISINOPRIL 20 MG TAB PO SCH (08:12)
[2019-08-18] MEDS: ASPIRIN 81 MG PO SCH (08:12)
[2019-08-18] MEDS: MULTIVITAMINS, THERA 1 EACH TAB PO SCH (08:12)
[2019-08-18] MEDS: HYDROCHLOROTHIAZIDE 25 MG TAB PO SCH (08:13)
[2019-08-18] MEDS: PREGABALIN 75 MG CAP PO SCH (08:13)
[2019-08-18] MEDS: cloNIDine HCL 0.1 MG TAB PO SCH (08:13)
[2019-08-18] MEDS: CARVEDILOL 12.5 MG TAB PO SCH ×2 (08:13→17:08)
[2019-08-18] MEDS: PANTOPRAZOLE 40 MG TABLET PO SCH (08:13)
[2019-08-18] MEDS: FUROSEMIDE 20 MG TAB PO SCH (08:13)
[2019-08-18] MEDS: ATORVASTATIN 40 MG TAB PO SCH (08:13)
[2019-08-18] MEDS: FOLIC ACID 1 MG TAB PO SCH (08:13)
[2019-08-18] MEDS: INSULIN ASPART (NovoLOG) 100 UNIT/ML VIAL SQ SCH ×3 (08:14→17:08)
[2019-08-18 10:18] LABS: Basophils # (A) 0.1 k/uL (0-0.2); Basophils % (A) 1 %; Eosinophils # (A) 0.4 k/uL (0-0.7); Eosinophils % (A) 7 %; HCT 39.1 % (39.0-53.0); HGB 12.9 gm/dL (13.0-17.5); Lymphocytes # (A) 1.8 k/uL (1.0-4.8); Lymphocytes % (A) 27 %; MCH 29.4 pg (25.0-35.0); MCV 89.3 fL (80.0-100.0); Mean Platelet Volume 8.8; Monocytes # (A) 0.5 k/uL (0-1.0); Monocytes % (A) 7 %; Neutrophils # (A) 3.9 k/uL (1.3-7.7); Neutrophils % (A) 57 %; Platelet Count 248 k/uL (150-450); RBC 4.37 m/uL (4.30-5.90); RDW 12.8 % (11.5-15.5); WBC 6.7 k/uL (3.8-10.6)
[2019-08-18 10:29] LABS: African American GFR (CKD) >90 (>60 ml/min/1.73 sqM); Anion Gap 5 mmol/L; Blood Urea Nitrogen 17 mg/dL (9-20); Calcium 8.7 mg/dL (8.4-10.2); Carbon Dioxide 34 mmol/L (22-30); Chloride 98 mmol/L (98-107); Glucose 212 mg/dL (74-99); Non-African American GFR(CKD) 82 (>60 ml/min/1.73 sqM); Potassium 4.3 mmol/L (3.5-5.1); Sodium 137 mmol/L (137-145)
[2019-08-18 12:00] LABS: Glucose,Whole Blood 203 mg/dL (75-99)
[2019-08-18] MEDS: THIAMINE 100 MG TAB PO SCH (12:46)
[2019-08-18] MEDS ORDERED: LIDOCAINE 1% INJ 10MG/ML (20 ML MDV) SQ ONE (13:01)
--- NOTE | 2019-08-18 13:23 | IR ---
PICC LINE PLACEMENT: HISTORY: Infection requiring long-term antibiotic therapy PROCEDURE: Ultrasound and fluoroscopic guidance of PICC line placement. COMPLICATIONS: None ANESTHESIA: 1. 1% Lidocaine locally. FINDINGS/TECHNIQUE: The procedure was explained to the patient. The risks, complications, benefits and alternatives were discussed and any questions were answered. Informed consent was obtained. The patient was placed supine on the fluoroscopic table and prepped and draped in the usual sterile fash ion. Utilizing a 21 gauge needle and sonographic and fluoroscopic guidance, access in the left basi lic vein vein was achieved and there is placement of a 0.018 guidewire. The vein is patent. A 4-F s rafaela was placed over the guidewire. The guidewire and dilator were removed and a 4-F. PICC line was placed through the sheath with the tip at the level of the SVC. The sheath was removed, the cathete r was flushed and sutured into position. The patient was stable throughout the procedure and remaine d stable upon discharge from the Department of Radiology. The vein puncture was patent under ultrasound. A fischer scale image was obtained to document patency of the vein punctured. All elements of the maximal barrier technique were utilized. FLUOROSCOPY TIME: 0.1 minutes of fluoroscopy and one image submitted. IMPRESSION: Successful PICC line placement under ultrasound and fluoroscopic guidance.
[2019-08-18 15:25] VITALS: BP 113/65; PULSE 58; RESP 16; TEMP 97.4
[2019-08-18] MEDS: HYDROcodone/APAP 10-325MG 1 EACH TAB PO PRN (16:04)
--- NOTE | 2019-08-18 16:23 | PN ---
PROGRESS NOTE DATE OF SERVICE: 08/18/2019 REASON FOR FOLLOWUP: Scalp abscess with MSSA with secondary bacteremia. INTERVAL HISTORY: The patient is currently afebrile. The patient has been breathing comfortably. The patient denies having any chest pain, shortness of breath or cough. No nausea, no vomiting and no diarrhea. PHYSICAL EXAMINATION: Blood pressure is 122/77 with a pulse of 65, temperature of 98. He is 93% on room air. General description is a middle-aged male lying in bed in no distress. HEENT examination shows the scalp area swelling and redness have improved. Minimal drainage. LUNGS: Unlabored breathing. Clear to auscultation anteriorly. HEART: S1, S2. Regular rate and rhythm. ABDOMEN: Soft. No tenderness. LABS: Hemoglobin is 12.8, white count 6.7, BUN of 17, creatinine 0.98. Blood culture repeat on 08/15 has been negative so far. DIAGNOSTIC IMPRESSION AND PLAN: Patient with methicillin-susceptible Staphylococcus aeruginosa bacteremia. Source is scalp abscess that was drained in the ER. The patient subsequently refused surgical drainage by the surgeon. The patient's follow-up blood cultures have been negative. We did recommend cefazolin 2 grams q.8 hours for 2 weeks from his negative blood culture. However, the patient does not have any support at home for infusion of those antibiotics as per the case technician. Hence antibiotic has been switched over to daptomycin at 6 mg/kg, which he will continue in the outpatient setting in infusion clinic for 2 weeks. Lipitor will be put on hold. Local wound care with dry Aquacel Silver packing and close outpatient followup. MMODL / IJN: [id number] /
[2019-08-18] MEDS ORDERED: INSULIN DETEMIR (LEVEMIR) 100 UNIT/ML SYR SQ SCH (21:00)
--- NOTE | 2019-08-19 01:02 | DS ---
DISCHARGE SUMMARY DATE OF SERVICE: 08/18/2019. FINAL DIAGNOSES: 1. 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 2. Multiple skin abscess surrounding cellulitis of the left side of the face. 3. Diabetes mellitus type 2 uncontrolled with hyperglycemia. 4. Change in mental status possible acute metabolic encephalopathy possibly secondary to drug withdrawal. 5. Elevated plasma lactic acid. 6. Hyponatremia. 7. Increased WBC. 8. History of polysubstance abuse including cocaine and THC. 9. History of cerebrovascular accident and transient ischemic attack. 10.Hypertension. 11.History of renal disease. 12.History of urinary frequency. 13.History of cerebrovascular accident of the left side of the body history. 14.History of mastoid repair. 15.History of hernia repair. 16.History of anxiety, depression. 17.History of noncompliance. 18.Culture showed MSSA. 19.MSSA bacteremia. DISCHARGE DISPOSITION: The patient will be discharged in stable condition with guarded prognosis. Total time taken 35 minutes. The patient recommended a PICC line and Dr. Rader recommended outpatient antibiotics. 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 The patient treated in conjunction with multiple consultants. Dr. Rader saw the patient and blood culture showed MSSA. Patient treated symptomatically as mentioned earlier. On exam, vitals are stable. Cardiovascular S1, S2. Abdomen soft. Nervous system: No focal deficits. The patient is willing to go Dr. Rader's office for IV infusion. Otherwise, recommend close followup with Dr. Salomon Paz, who is the primary physician. The patient also recommended to stay away from cocaine and other substances abuse. DISCHARGE ADVICE AND MEDICATIONS: 1. Discharge diet is cardiac diet. 2. Activity limited until followup. 3. Follow up with Dr. Sommer as recommended. 4. Follow up with Dr. Radre in 2-3 days. DISCHARGE MEDICATIONS: 1. Ecotrin 81 mg daily. 2. Coreg 25 mg p.o. b.i.d. 3. Humalog scale as before. 4. HydroDIURIL 25 mg p.o. daily. 5. Insulin 25 units subcu q.h.s. 6. Lasix 20 mg p.o. daily. 7. Lisinopril 40 mg. 8. Lyrica 150 mg p.o. b.i.d. 9. [place] 10 mg b.i.d. p.r.n. 10.Omeprazole 20 mg p.o. daily. 11.Requip 4 mg q.h.s. 12.Trazodone 50 mg q.h.s. 13.Catapres 0.1 p.o. b.i.d. 14.Multivitamins 1 p.o. b.i.d. 15.Accu-Candice dean and q.h.s. Dr. Paz and outpatient adjustment of medications also. MMODL / IJN: [id number] / MTDD
--- NOTE | 2019-08-21 06:01 | CDI ---
Documentation Clarification Form Date: 08/21/2019 From: TATE ONEIL Phone: If you have a question about this query, please contact Mariama Lopez, Software Development Coordinator at [phone] between 8am and 5pm. Admit Date: 08/14/19 Discharge Date: 08/18/19 Patient Name: Gray Burger Visit Number: [id number] ATTENTION: The Clinical Documentation Specialists (CDI) and [facility] Coding Staff appreciate your assistance in clarifying documentation. Please respond to the clarification below the line at the bottom and electronically sign. The CDI & [facility] Coding staff will review the response and follow-up if needed. Please note: Queries are made part of the Legal Health Record. If you have any questions, please contact the author of this message via ITS. Dear Ethan Murillo, Documentation in the ED Operative Report included:Incision Drainage : A smell neck is performed with an 11 blade and angela purulent material was obtained. History/Risk factors: Sepsis, Scalp abscess, cellulitis of face. Pre-Operative Diagnosis: Scalp abscess Postoperative Diagnosis: Scalp abscess Treatment: Incision and drainage, IV Antibiotics. In order to capture the severity of condition, please specify the following: Incision and Drainage Depth__ SKIN Subcutaneous tissue. Muscle Other, Please Specify See addendum to ER Report BB MTDD
--- NOTE | 2019-08-30 23:25 | CDI ---
Documentation Clarification Form Date: 08/31/2019 From: [facility] Phone: If you have a question about this query, please contact Maraima Lopez, Burglary Investigator at [phone] between 8am and 5pm. Admit Date: 08/14/19 Discharge Date: 08/18/19 Patient Name: Gray Burger Visit Number: [id number] ATTENTION: The Clinical Documentation Specialists (CDI) and [facility] Coding Staff appreciate your assistance in clarifying documentation.Please respond to the clarification below the line at the bottom and electronically sign.The CDI [facility] Coding staff will review the response and follow-up if needed.Please note: Queries are made part of the Legal Health Record.If you have any questions, please contact the author of this message via ITS. Dear Ethan Murillo, Documentation in the ED Operative Report included:Incision Drainage : A smell neck is performed with an 11 blade and angela purulent material was obtained. History/Risk factors: Sepsis, Scalp abscess, cellulitis of face. Pre-Operative Diagnosis: Scalp abscess Postoperative Diagnosis: Scalp abscess Treatment: Incision and drainage, IV Antibiotics. Thank you for documenting addendum with depth of .5 cm, however, for accurate billing we need to know if .5 cm depth is skin or subcutaneous or muscle. Please Signify Depth : SKIN or SUBCUTANEOUS TISSUE. MTDD
== END 2019-08-18 18:15 | disposition home or self-care (01) | DRG 854 ==
LOC: EC 17:24 → 6NMEDSUR 18:55
PROVIDERS: ADMIT Hospitalist; ATTEND Hospitalist
PROC: 0J900ZZ Drainage of Scalp Subcutaneous Tissue and Fascia, Open Approach (ICD-10-PCS; principal; 2019-08-14)
PROC: 02HV33Z Insertion of Infusion Device into Superior Vena Cava, Percutaneous Approach (ICD-10-PCS; 2019-08-18)
DX: A41.01 Sepsis due to Methicillin susceptible Staphylococcus aureus (principal); E87.1 Hypo-osmolality and hyponatremia; L02.01 Cutaneous abscess of face; L02.811 Cutaneous abscess of head [any part, except face]; L03.811 Cellulitis of head [any part, except face]; M86.10 Other acute osteomyelitis, unspecified site; E11.65 Type 2 diabetes mellitus with hyperglycemia; E11.69 Type 2 diabetes mellitus with other specified complication; I10 Essential (primary) hypertension; J32.0 Chronic maxillary sinusitis; Z79.2 Long term (current) use of antibiotics; Z79.82 Long term (current) use of aspirin; Z79.899 Other long term (current) drug therapy; Z79.4 Long term (current) use of insulin; Z85.828 Personal history of other malignant neoplasm of skin; Z82.49 Family history of ischemic heart disease and other diseases of the circulatory system; Z91.19 Patient's noncompliance with other medical treatment and regimen; Z86.73 Personal history of transient ischemic attack (TIA), and cerebral infarction without residual deficits; Z87.442 Personal history of urinary calculi
CPT/HCPCS: 10060; 36415; 36573; 70460; 70487; 78315; 80048; 80053; 80202; 80306; 81001; 83605; 85025; 87040; 87070; 87077; 87186; 87205; 96365; 96366; 96375; 99285

== ENCOUNTER 2019-08-22 02:09 | Emergency (ER) | payer MEDICARE, OTHER ==
[~2019-08-22 02:09] MED LIST: EPINEPHrine 10 ML SYRINGE (0.1 MG/ML) ONE; SODIUM BICARB 8.4% 50 ML SYR (1 MEQ/ML) ONE; SODIUM CHLORIDE 0.9% 1,000 ML IV ONE
[2019-08-22] MEDS ORDERED: SODIUM CHLORIDE 0.9% 1,000 ML IV STA (02:12)
[2019-08-22] MEDS ORDERED: DIPH,PERTUS(ACELL)TETVAC-LF 0.5 ML VIAL IM ONE (02:12)
[2019-08-22] MEDS ORDERED: HYDROXOCOBALAMIN 5 GM in SODIUM CHLORIDE 0.9% 250 ML IVPB STA (02:16)
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
== END 2019-08-22 05:34 | disposition expired ==
LOC: EDBD → EC 02:09 → MERGE 02:09 → EC 05:34
DX: I46.9 Cardiac arrest, cause unspecified (principal); T23.301A Burn of third degree of right hand, unspecified site, initial encounter; T22.311A Burn of third degree of right forearm, initial encounter; T21.34XA Burn of third degree of lower back, initial encounter; T21.33XA Burn of third degree of upper back, initial encounter; T21.35XA Burn of third degree of buttock, initial encounter; T24.312A Burn of third degree of left thigh, initial encounter; T24.311A Burn of third degree of right thigh, initial encounter; T24.332A Burn of third degree of left lower leg, initial encounter; T24.331A Burn of third degree of right lower leg, initial encounter; T25.322A Burn of third degree of left foot, initial encounter; T25.321A Burn of third degree of right foot, initial encounter; T31.44 Burns involving 40-49% of body surface with 40-49% third degree burns; T21.21XA Burn of second degree of chest wall, initial encounter; T21.22XA Burn of second degree of abdominal wall, initial encounter; T22.20XA Burn of second degree of shoulder and upper limb, except wrist and hand, unspecified site, initial encounter; T26.02XA Burn of left eyelid and periocular area, initial encounter; T26.01XA Burn of right eyelid and periocular area, initial encounter; T20.02XA Burn of unspecified degree of lip(s), initial encounter; R00.1 Bradycardia, unspecified; E11.9 Type 2 diabetes mellitus without complications; Z90.89 Acquired absence of other organs; Z23 Encounter for immunization; X00.0XXA Exposure to flames in uncontrolled fire in building or structure, initial encounter; Y92.009 Unspecified place in unspecified non-institutional (private) residence as the place of occurrence of the external cause
CPT/HCPCS: 99291; 31500; 92950; 96365; 96375; 96361; 90471; 90715; J0690; J0171; 94002